=== PATIENT | male | born 1935 | race Caucasian/White ===

== ENCOUNTER 2018-01-14 14:08 | Emergency (ER) | payer MEDICARE, BC ==
--- NOTE | 2018-01-14 14:52 | ED ---
General Adult HPI - General Chief complaint: Extremity Injury, Lower Stated complaint: poss blood clot left leg Time Seen by Provider: 01/14/18 14:10 Source: patient, family, RN notes reviewed Mode of arrival: wheelchair Limitations: physical limitation - History of Present Illness Initial comments: This is an 82-year-old male presents emergency Department with a weeklong history of left leg swelling. Patient has no complaints of pain like patient has no complaints of difficulty breathing or shortness of breath. Patient has no complaints of chest pain. Patient noted that leg becoming swollen about one week ago and he became discolored the dark red hue to it. Patient went to another emergency department and they did not do an ultrasound. Today the patient's physician recommended he come to the emergency department again and be reevaluated especially for clots. Patient has not had any recent fevers or chills patient has no complaints currently other than his leg is larger than normal. Patient also has a petechial rash on the inner left thigh - Related Data Home Medications Medication Instructions Recorded Confirmed Aspirin EC [Ecotrin Low Dose] 81 mg PO DAILY 12/23/13 01/14/18 Fish Oil/Dha/Epa [Fish Oil 1,200 1,200 mg PO DAILY 12/23/13 01/14/18 mg Fish Oil] Hydrochlorothiazide [Hydrodiuril] 12.5 mg PO DAILY 12/23/13 01/14/18 Nisoldipine [Sular] 17 mg PO QAM 12/23/13 01/14/18 Tamsulosin [Flomax] 0.4 mg PO BID 12/23/13 01/14/18 Cephalexin [Keflex] 500 mg PO QID 01/14/18 01/14/18 Donepezil [Aricept] 10 mg PO HS 01/14/18 01/14/18 Meclizine [Antivert] 25 mg PO DAILY 01/14/18 01/14/18 Memantine [Namenda] 10 mg PO BID 01/14/18 01/14/18 Mirtazapine [Remeron] 30 mg PO HS 01/14/18 01/14/18 Multivitamins, Thera [Multivitamin 1 tab PO DAILY 01/14/18 01/14/18 (formulary)] Naproxen 500 mg PO DAILY 01/14/18 01/14/18 Saw [place] 160 mg PO DAILY 01/14/18 01/14/18 Sulfamethox-Tmp 800-160Mg [Bactrim 1 tab PO Q12HR 01/14/18 01/14/18 DS 800-160 mg] Ubidecarenone [Co Q-10] 100 mg PO DAILY 01/14/18 01/14/18 Vit C/E/Zn/Coppr/Lutein/Zeaxan 2 cap PO DAILY 01/14/18 01/14/18 [Preservision Areds 2 Softgel] Allergies Allergy/AdvReac Type Severity Reaction Status Date / Time No Known Allergies Allergy Verified 01/14/18 14:51 Review of Systems ROS Statement: Those systems with pertinent positive or pertinent negative responses have been documented in the HPI. ROS Other: All systems not noted in ROS Statement are negative. Past Medical History Past Medical History: Hypertension, Prostate Disorder Additional Past Medical History / Comment(s): STM LOSS,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,HX ATRIAL FLUTTER History of Any Multi-Drug Resistant Organisms: None Reported Past Surgical History: Appendectomy Additional Past Surgical History / Comment(s): BENIGN TUMOR REMOVED RT BREAST Past Anesthesia/Blood Transfusion Reactions: No Reported Reaction Past Psychological History: No Psychological Hx Reported Smoking Status: Never smoker Past Alcohol Use History: Occasional Past Drug Use History: None Reported General Exam - General Exam Comments Initial Comments: GENERAL: Patient is well-developed and well-nourished. Patient is nontoxic and well- hydrated and is in no acute distress. ENT: Neck is soft and supple. No significant lymphadenopathy is noted. Oropharynx is clear. Moist mucous membranes. Neck has full range of motion without eliciting any pain. EYES: The sclera were anicteric and conjunctiva were pink and moist. Extraocular movements were intact and pupils were equal round and reactive to light. Eyelids were unremarkable. PULMONARY: Unlabored respirations. Good breath sounds bilaterally. No audible rales rhonchi or wheezing was noted. CARDIOVASCULAR: There is a regular rate and rhythm without any murmurs gallops or rubs. ABDOMEN: Soft and nontender with normal bowel sounds. No palpable organomegaly was noted. There is no palpable pulsatile mass. SKIN: Skin is clear with no lesions or rashes and otherwise unremarkable. NEUROLOGIC: Patient is alert and oriented x3. Cranial nerves II through XII are grossly intact. Motor and sensory are also intact. Normal speech, volume and content. Symmetrical smile. MUSCULOSKELETAL: Left leg is significantly more edematous than the right there is a sharply demarcated area of dark erythema that is nonblanching. Patient also has a erythematous rash on the inner left thigh that is also nonblanching and looks consistent with petechiae. LYMPHATICS: No significant lymphadenopathy is noted PSYCHIATRIC: Normal psychiatric evaluation. Limitations: physical limitation Course Vital Signs 01/14/18 14:24 Temperature 98.2 F Pulse Rate 65 Respiratory 20 Rate Blood Pressure 132/73 O2 Sat by Pulse 97 Oximetry Medical Decision Making - Medical Decision Making Ultrasound showed no acute DVT. Patient was 30 on Bactrim and Keflex for cellulitis of the leg. And the states they will continue the antibiotics - Lab Data Result diagrams: 01/14/18 15:05 01/14/18 15:05 Lab Results 01/14/18 01/14/18 01/14/18 Range/Units 15:05 15:05 15:05 WBC 7.0 (3.8-10.6) k/uL RBC 4.07 L (4.30-5.90) m/uL Hgb 12.6 L (13.0-17.5) gm/dL Hct 38.6 L (39.0-53.0) % MCV 94.9 (80.0-100.0) fL MCH 31.0 (25.0-35.0) pg MCHC 32.7 (31.0-37.0) g/dL RDW 13.5 (11.5-15.5) % Plt Count 199 (150-450) k/uL Neutrophils % 76 % Lymphocytes % 13 % Monocytes % 7 % Eosinophils % 3 % Basophils % 0 % Neutrophils # 5.3 (1.3-7.7) k/uL Lymphocytes # 0.9 L (1.0-4.8) k/uL Monocytes # 0.5 (0-1.0) k/uL Eosinophils # 0.2 (0-0.7) k/uL Basophils # 0.0 (0-0.2) k/uL PT 10.9 (9.0-12.0) sec INR 1.1 (<1.2) APTT 23.6 (22.0-30.0) sec Sodium 141 (137-145) mmol/L Potassium 4.1 (3.5-5.1) mmol/L Chloride 109 H (98-107) mmol/L Carbon Dioxide 22 (22-30) mmol/L Anion Gap 10 mmol/L BUN 29 H (9-20) mg/dL Creatinine 1.20 (0.66-1.25) mg/dL Est GFR (CKD-EPI)AfAm 64 (>60 ml/min/1.73 sqM) Est GFR (CKD-EPI)NonAf 56 (>60 ml/min/1.73 sqM) Glucose 88 (74-99) mg/dL Calcium 9.4 (8.4-10.2) mg/dL Total Bilirubin 0.5 (0.2-1.3) mg/dL AST 26 (17-59) U/L ALT 34 (21-72) U/L Alkaline Phosphatase 61 (38-126) U/L Total Protein 6.6 (6.3-8.2) g/dL Albumin 3.5 (3.5-5.0) g/dL Disposition Clinical Impression: Peripheral edema Disposition: HOME SELF-CARE Instructions: Leg Edema (ED) Is patient prescribed a controlled substance at d/c from ED?: No Referrals: Cullen Morel MD [Primary Care Provider] - 1-2 days Time of Disposition: 16:55
[2018-01-14 15:23] LABS: Basophils % (A) 0 %; Eosinophils # (A) 0.2 k/uL (0-0.7); Eosinophils % (A) 3 %; HCT 38.6 % (39.0-53.0); HGB 12.6 gm/dL (13.0-17.5); Lymphocytes # (A) 0.9 k/uL (1.0-4.8); Lymphocytes % (A) 13 %; MCHC 32.7 g/dL (31.0-37.0); MCV 94.9 fL (80.0-100.0); Mean Platelet Volume 8.1; Monocytes # (A) 0.5 k/uL (0-1.0); Monocytes % (A) 7 %; Neutrophils # (A) 5.3 k/uL (1.3-7.7); Neutrophils % (A) 76 %; Platelet Count 199 k/uL (150-450); RBC 4.07 m/uL (4.30-5.90); RDW 13.5 % (11.5-15.5)
[2018-01-14 15:26] LABS: Albumin 3.5 g/dL (3.5-5.0); Calcium 9.4 mg/dL (8.4-10.2); Potassium 4.1 mmol/L (3.5-5.1); Total Bilirubin 0.5 mg/dL (0.2-1.3); Total Protein 6.6 g/dL (6.3-8.2)
[2018-01-14 15:27] LABS: INR 1.1 (<1.2); Partial Thromboplastin Time 23.6 sec (22.0-30.0); Prothrombin Time 10.9 sec (9.0-12.0)
--- NOTE | 2018-01-14 15:58 | US ---
EXAMINATION TYPE: US venous doppler duplex LE LT DATE OF EXAM: 01/14/2018 3:45 PM COMPARISON: NONE CLINICAL HISTORY: Pain. cellulitis. Pain/redness/swelling left lower leg SIDE PERFORMED: Left TECHNIQUE: The lower extremity deep venous system is examined utilizing real time linear array sonog aminah with graded compression, doppler sonography and color-flow sonography. VESSELS IMAGED: External Iliac Vein (EIV) Common Femoral Vein Deep Femoral Vein Greater Saphenous Vein * Femoral Vein Popliteal Vein Small Saphenous Vein * Proximal Calf Veins (* superficial vessels) Left Leg: Negative for DVT lymph node noted at level of left CFV = 3.0 x 1.7 x 0.8 cm IMPRESSION: 1. Ultrasound left lower extremity negative for deep venous thrombosis.
[2018-01-14 17:30] VITALS: BP 135/70; PULSE 72; RESP 16; TEMP 98.3
== END 2018-01-14 17:25 | disposition home or self-care (01) ==
LOC: EC 14:08
DX: R60.0 Localized edema (principal); L03.119 Cellulitis of unspecified part of limb; R21 Rash and other nonspecific skin eruption; I10 Essential (primary) hypertension; N40.0 Benign prostatic hyperplasia without lower urinary tract symptoms; Z79.1 Long term (current) use of non-steroidal anti-inflammatories (NSAID); Z79.82 Long term (current) use of aspirin; Z79.899 Other long term (current) drug therapy
CPT/HCPCS: 36415; 80053; 85025; 85610; 85730; 99284

== ENCOUNTER 2018-05-28 08:49 | Day surgery (SDC) | payer MEDICARE, BC ==
[2018-05-27 11:21] VITALS: BMI 34.4
[~2018-05-28 08:49] MED LIST: SODIUM CHLORIDE 0.9% 1,000 ML IV SCH; ceFAZolin 1,000 MG in SODIUM CHLORIDE 0.9% IRRIGATIO 250 ML IRRIGATION ONE; ceFAZolin IN SWFI 2 GM/20 ML SYRINGE IVP ONE
[2018-05-28] MEDS ORDERED: IOPAMIDOL-250 50ML BTL IV ONE (10:40)
[2018-05-28] MEDS ORDERED: MIDAZOLAM 2 MG/2 ML VIAL IVP ONE (11:00)
[2018-05-28] MEDS ORDERED: LIDOCAINE 1% INJ 10MG/ML (20 ML MDV) SQ ONE ×2 (11:03→11:07)
[2018-05-28] MEDS ORDERED: fentaNYL (PF) 50 MCG/ML 2 ML AMP IV ONE (11:09)
[2018-05-28] MEDS ORDERED: ACETAMINOPHEN TAB 325 MG TAB PO PRN (12:12)
[2018-05-28] MEDS ORDERED: SODIUM CHLORIDE 0.9% 1,000 ML IV SCH (12:15)
--- NOTE | 2018-05-28 13:05 | CE ---
CARDIAC ELECTROPHYSIOLOGY REPORT DATE OF SERVICE: 05/28/2018. PROCEDURE: Single-chamber permanent pacemaker from left infraclavicular approach. PERFORMED BY: Dr. Gabriel Ashraf. Moderate conscious sedation time was 61 minutes. The patient was administered Versed and fentanyl and his oxygen saturation, hemodynamics and EKG were monitored closely. CLINICAL INFORMATION: Mr. Kvng Taveras is a 82-year-old gentleman with history of hypertension, hyperlipidemia, chronic atrial fibrillation with several episodes of significant pauses of more than 4.5 seconds and associated with dizziness, lightheadedness and near syncope. He was advised a permanent pacemaker and brought in for the procedure electively. Rationale, risks, benefits, options were explained to the patient and his . PROCEDURE NOTE: Under local anesthesia and strict aseptic precautions from the left infraclavicular approach under fluoroscopic guidance, an axillary vein puncture was achieved with using a micropuncture needle technique. Subsequently a guidewire was positioned in the right atrium. I then made an incision about inch and a half medial and parallel to the left deltopectoral groove. Dissection was carried out up till the fascia. A pocket was made using blunt dissection and cautery. The pocket was irrigated with antibiotic solution and the antibiotic sponge was also kept in the pocket. A 6-Ugand[place] introducer was placed in the axillary vein under fluoroscopic guidance. A single ventricular lead was positioned under fluoroscopic guidance in the interventricular septum. Good thresholds and sensitivities were obtained. The sheath was taken out. The lead was secured to the underlying muscle with a 0 silk. Subsequently, the thresholds were rechecked again. DUCKWORTH and DARIA projection views as well as diaphragmatic pacing were performed. The pulse generator was then corrected to the lead. The thresholds and sensitivities were again checked. There was some decrease in the R-waves, but subsequently they came back up to 5.6. The pulse generator was also secured to the underlying muscle in the plane of the incision. The pocket was closed in 2 layers. Excellent hemostasis was secured. Patient tolerated the procedure well without complications. Results were discussed with the patient and family members. He received Kefzol antibiotic during the incision and this will be given for the next 4 doses as well. Procedure was performed uneventfully. PACEMAKER DETAILS: Pulse generator piano accompanist is [employer], model Assurity MRI 1272, serial #[id number]. The ventricular lead piano accompanist is [employer], it is a Tendril STS [id number]. The serial number is a [id number]. The location of the lead was in the interventricular septum. The R-waves on final recordings were 5.6 mV. The threshold was 0.5 V at 0.4 milliseconds. The lead impedance was 740 ohms. The pacemaker was set at a low rate of 50 and a high rate of 110. The patient will have a chest x-ray today and another chest x-ray 2 views tomorrow and a device check as well prior to discharge. MMODL / IJN: [id number] /
--- NOTE | 2018-05-28 13:41 | XR ---
EXAMINATION TYPE: XR chest 1V portable DATE OF EXAM: 05/28/2018 Comparison: None Clinical History: 82-year-old male Lead placement check Findings: Heart mildly enlarged. Left anterior chest wall pacemaker generator with single right ventricular laine d. No pneumothorax. There is a moderate left pleural effusion with adjacent left basilar opacity. Impression: 1. Mild cardiomegaly. Moderate left pleural effusion with adjacent atelectasis and/or consolidation. Possible sequela of mild CHF. 2. Left-sided pacemaker generator with right ventricular lead.
[2018-05-28] MEDS: ceFAZolin IN SWFI 2 GM/20 ML SYRINGE IVP SCH (18:26)
[2018-05-28] MEDS ORDERED: DONEPEZIL 10 MG TAB PO SCH (21:00)
[2018-05-28] MEDS ORDERED: MIRTAZAPINE 15 MG TAB PO SCH (21:00)
[2018-05-28] MEDS: TAMSULOSIN 0.4 MG CAP.ER.24H PO SCH (21:35)
[2018-05-28] MEDS: MEMANTINE 10 MG TAB PO SCH (21:35)
[2018-05-29] MEDS: ceFAZolin IN SWFI 2 GM/20 ML SYRINGE IVP SCH ×3 (00:14→12:45)
[2018-05-29] MEDS ORDERED: LEVOTHYROXINE 50 MCG TAB PO SCH (06:30)
--- NOTE | 2018-05-29 07:55 | XR ---
EXAMINATION TYPE: XR chest 2V DATE OF EXAM: 05/29/2018 COMPARISON: Chest x-ray from yesterday. HISTORY: Lead placement check for arrhythmia. TECHNIQUE: Frontal and lateral views of the chest are obtained. FINDINGS: There is redemonstration of cardiomegaly with single lead pacemaker, lead projects into ri ght ventricle on 2 views obtained. There is chronic parenchymal change with left basilar opacity cons istent with small to moderate-sized left pleural effusion, there is small to tiny right pleural effus ion. There is associated left basilar atelectasis and/or infiltrate. Mild to moderate central vascula r congestion is felt present. Osseous structures are somewhat demineralized. Degenerative change bila teral glenohumeral joints is noted. IMPRESSION: 1. Single lead pacemaker terminating in right ventricle confirmed. 2. Cardiomegaly with mild to moderate central vascular congestion felt slightly more prominent from p rior, correlate for CHF exacerbation or fluid overload state. There is persistent small to moderate-s ized left pleural effusion and small to tiny right pleural effusion with associated left basilar atel ectasis and/or infiltrate.
[2018-05-29] MEDS: TAMSULOSIN 0.4 MG CAP.ER.24H PO SCH (07:59)
[2018-05-29] MEDS ORDERED: APIXABAN 2.5 MG TABLET PO SCH (08:00)
[2018-05-29] MEDS: MEMANTINE 10 MG TAB PO SCH (08:00)
[2018-05-29] MEDS ORDERED: FUROSEMIDE 10 MG/ML 4 ML VIAL IV STA (08:33)
[2018-05-29] MEDS ORDERED: FUROSEMIDE 20 MG TAB PO SCH (09:00)
[2018-05-29] MEDS ORDERED: amLODIPine 5 MG TAB PO SCH (09:00)
[2018-05-29] MEDS ORDERED: CALCIUM POLYCARBOPHIL 625 MG TAB PO SCH (09:00)
[2018-05-29] MEDS ORDERED: POTASSIUM CHLORIDE ER 20 MEQ TAB.ER PO SCH (09:00)
[2018-05-29 09:03] VITALS: RESP 18
[2018-05-29] MEDS ORDERED: VIT A,C & E-LUTEIN-MINERALS 1 EACH TAB PO SCH (12:00)
[2018-05-29] MEDS ORDERED: MULTIVITAMINS, THERA 1 EACH TAB PO SCH (12:00)
[2018-05-29 12:13] VITALS: BP 130/76; PULSE 58; TEMP 97.8
--- NOTE | 2018-05-29 14:57 | DS ---
DISCHARGE SUMMARY DATE OF SERVICE: 05/28/2018 DATE OF DISCHARGE: 05/29/2018. DIAGNOSES: 1. Sick sinus syndrome. 2. Chronic atrial fibrillation. 3. Diastolic heart failure. 4. Chronic pleural effusion. CLINICAL INFORMATION: Mr. Kvng Taveras is an 82-year-old gentleman with sick sinus syndrome, symptomatic bradycardia with pauses of more than 3.5 seconds, who was advised to have a permanent pacemaker because of his symptoms and bradycardia. Risks, benefits, options and rationale were explained. Patient was brought in for the procedure electively. On 05/28/2018 he underwent a single-chamber permanent pacemaker that was placed in the left infraclavicular approach. This was a [employer] pacemaker, single-chamber, with a screw-in active lead. Procedure was performed uneventfully. Post-procedure course was uneventful. Chest x-ray both yesterday and today did not reveal any pacemaker-related complications. He has a pleural effusion that seems to persist. The site is clean and dry this morning. His vital signs are stable. Heart rate is in the 70s. S1, S2 heard normally. Short systolic murmur at the base is audible. Lungs reveal diminished air entry at both bases. Abdomen is soft, nontender. Lower extremities reveal diminished pulses. Central nervous system is normal. The pacemaker site is clean and dry. The dressing has what seems to be old blood, but there is no fresh oozing. It looks clean and dry. The patient's pacemaker has been checked, and sensitivities and thresholds are excellent. The chest x-ray is unremarkable for any pacemaker-related issues. He will be discharged this afternoon after he has received 4 doses of his antibiotics. I will see him in the office on June 05 at 2:30 p.m. Advised to not raise his arm above the head and to use the sling for at least one week. I will see him in the office in one week. He will call me sooner if he has a question, concern or problem. All discharge instructions were given. MMODL / IJN: [id number] /
--- NOTE | 2018-06-02 09:02 | CDI ---
ChronicDate: 06/02/18 CDS/Local Bulk Driver Name: Cristin Garcia Phone: If any questions, call Estella Henley Process Architect at [phone] Patient Name: Kvng Taveras Admit Date: 05/28/18 Discharge Date: 05/29/18 ATTENTION: The [facility] Coding Staff appreciate your assistance in clarifying documentation. Please respond to the clarification below the line at the bottom and electronically sign. The [facility] Coding staff will review the response and follow-up if needed. Please note: Queries are made part of the Legal Health Record. If you have any questions, please contact the Process Architect. Dear Dr. Ashraf, Please provide clarification as to the type of atrial fibrillation the patient is diagnosed with. The H&P under Problem List and Impression and Plan it is stated as Persistent Atrial Fibrillation. All through the procedure note it is described as Chronic Atrial Fibrillation. Please clarify. Thank you for your kind consideration Chronic Afib MTDD
== END 2018-05-29 14:49 | disposition home or self-care (01) ==
LOC: CATHEP 08:49 → 1SOBS 12:04 → CATHEP 05-29 14:49
PROVIDERS: ATTEND Internal Medicine Interventional Cardiology
DX: I49.5 Sick sinus syndrome (principal); I48.2 Chronic atrial fibrillation; I11.0 Hypertensive heart disease with heart failure; I50.30 Unspecified diastolic (congestive) heart failure; F03.91 Unspecified dementia, unspecified severity, with behavioral disturbance; J90 Pleural effusion, not elsewhere classified; Z79.01 Long term (current) use of anticoagulants; Z79.1 Long term (current) use of non-steroidal anti-inflammatories (NSAID); Z79.890 Hormone replacement therapy; Z79.899 Other long term (current) drug therapy
CPT/HCPCS: 33207; 71045; 71046; C1898; C1786; J2250; J1940; J0690 ×3; J2001; J3010; Q9966; 33206

== ENCOUNTER 2018-08-24 21:10 | Emergency (ER) | payer MEDICARE, BC ==
--- NOTE | 2018-08-24 21:51 | ED ---
General Adult HPI - General Chief complaint: Extremity Problem,Nontraumatic Stated complaint: Lft Arm Numbness, Pacemaker dependent Time Seen by Provider: 08/24/18 21:25 Source: patient, family Mode of arrival: wheelchair Limitations: no limitations, altered mental status - History of Present Illness Initial comments: Dictation was produced using [employer] dictation software. please excuse any grammatical, word or spelling errors. Chief Complaint: 82-year-old male with past medical history of dementia, A. fib, hypertension presents with left elbow pain. History of Present Illness: Patient is a 2-year-old male with history of dementia. He presents today with left elbow pain. Patient is accompanied by his or set patient is complaining of arm pain since yesterday. Patient is a poor historian. denies that he has fallen. Patient is confused however reports that he is baseline confused. He does say yes to pain if you point to his left elbow and left humerus. Patient has no other complaints at this time. does not report any other changes from baseline. She does report that he is normally this confused. The ROS documented in this emergency department record has been reviewed and confirmed by me. Those systems with pertinent positive or negative responses have been documented in the HPI. All other systems are other negative and/or noncontributory. PHYSICAL EXAM: General Impression: Alert and oriented x3, not in acute distress HEENT: Normocephalic atraumatic, extra-ocular movements intact, pupils equal and reactive to light bilaterally, mucous membranes moist. Cardiovascular: Heart regular rate and rhythm, S1&S2 audible, no murmurs, rubs or gallops Chest: Lungs clear to auscultation bilaterally, no rhonchi, no wheeze, no rales Abdomen: Bowel sounds present, abdomen soft, non-tender, non-distended, no organomegaly Musculoskeletal: Pulses present and equal in all extremities, no peripheral edema, tenderness with extension of the left elbow Motor: no focal deficits noted Neurological: CN II-XII grossly intact, no focal motor or sensory deficits noted Skin: Intact with no visualized rashes Psych: Normal affect and mood ED course: 82-year-old male presents with left upper extremity pain. Vital signs upon arrival are within acceptable limits. Patient is well-appearing. History is limited secondary to patient's mental status of normal dementia. No external signs of trauma on physical examination. He does have some pain with manipulation at the left elbow.Labs obtained CBC and metabolic panel is unremarkable. X-rays of the chest elbow and shoulder are nonacute. There is a. Be some degenerative changes. More history was obtained from . She states that she was on his left arm whenever she tries to help him up. Patient's clinical presentation likely secondary to left elbow strain. Patient had lidocaine patch placed on his left elbow. Passive follow up PCP. Return parameters discussed. EKG interpretation: Ventricular rate 64, paced rhythm, QRS 72, QTC 392. No HI prolongation, no QTC prolongation, no ST or T-wave changes noted. No old EKG for comparison. - Related Data Home Medications Medication Instructions Recorded Confirmed Aspirin EC [Ecotrin Low Dose] 81 mg PO DAILY 12/23/13 08/24/18 Tamsulosin [Flomax] 0.4 mg PO BID 12/23/13 08/24/18 Mirtazapine [Remeron] 30 mg PO HS 01/14/18 08/24/18 Multivitamins, Thera [Multivitamin 1 tab PO DAILY 01/14/18 08/24/18 (formulary)] Vit C/E/Zn/Coppr/Lutein/Zeaxan 1 cap PO DAILY 01/14/18 08/24/18 [Preservision Areds 2 Softgel] Apixaban [Eliquis] 2.5 mg PO BID 04/30/18 08/24/18 Furosemide [Lasix] 20 mg PO DAILY 04/30/18 08/24/18 Levothyroxine Sodium [Synthroid] 50 mcg PO MOTUTHFRSA 04/30/18 08/24/18 Potassium Chloride [Klor-Con 20] 20 meq PO DAILY 04/30/18 08/24/18 Carvedilol [Coreg] 6.25 mg PO BID 08/24/18 08/24/18 Levothyroxine Sodium [Synthroid] 75 mcg PO SUWE 08/24/18 08/24/18 Meclizine [Antivert] 12.5 mg PO BID 08/24/18 08/24/18 Metolazone [Zaroxolyn] 2.5 mg PO MOWEFR 08/24/18 08/24/18 Allergies Allergy/AdvReac Type Severity Reaction Status Date / Time No Known Allergies Allergy Verified 08/24/18 22:01 Review of Systems ROS Statement: Those systems with pertinent positive or pertinent negative responses have been documented in the HPI. ROS Other: All systems not noted in ROS Statement are negative. 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, halfway memor y loss History of Any Multi-Drug Resistant Organisms: None Reported Past Surgical History: Appendectomy, Breast Surgery, Joint Replacement, Pacemaker, Prostate Surgery Additional Past Surgical History / Comment(s): BENIGN TUMOR REMOVED RT BREAST, rt knee replacement, cardioversion, DEJAN CATARACTS, thorascentesis Past Anesthesia/Blood Transfusion Reactions: No Reported Reaction Past Psychological History: Depression Smoking Status: Never smoker Past Alcohol Use History: Rare Past Drug Use History: None Reported - Past Family History Mother Family Medical History: No Reported History General Exam Limitations: no limitations, altered mental status Course Vital Signs 08/24/18 08/24/18 21:12 21:54 Temperature 99.1 F Pulse Rate 50 L 61 Respiratory 18 20 Rate Blood Pressure 130/69 124/74 O2 Sat by Pulse 95 97 Oximetry Medical Decision Making - Lab Data Result diagrams: 08/24/18 21:46 08/24/18 21:46 Lab Results 08/24/18 08/24/18 Range/Units 21:46 21:46 WBC 6.8 (3.8-10.6) k/uL RBC 3.90 L (4.30-5.90) m/uL Hgb 11.9 L (13.0-17.5) gm/dL Hct 36.3 L (39.0-53.0) % MCV 93.0 (80.0-100.0) fL MCH 30.4 (25.0-35.0) pg MCHC 32.7 (31.0-37.0) g/dL RDW 15.0 (11.5-15.5) % Plt Count 170 (150-450) k/uL Neutrophils % 73 % Lymphocytes % 15 % Monocytes % 8 % Eosinophils % 1 % Basophils % 1 % Neutrophils # 5.0 (1.3-7.7) k/uL Lymphocytes # 1.0 (1.0-4.8) k/uL Monocytes # 0.6 (0-1.0) k/uL Eosinophils # 0.1 (0-0.7) k/uL Basophils # 0.0 (0-0.2) k/uL Sodium 139 (137-145) mmol/L Potassium 4.2 (3.5-5.1) mmol/L Chloride 104 (98-107) mmol/L Carbon Dioxide 26 (22-30) mmol/L Anion Gap 9 mmol/L BUN 23 H (9-20) mg/dL Creatinine 1.33 H (0.66-1.25) mg/dL Est GFR (CKD-EPI)AfAm 57 (>60 ml/min/1.73 sqM) Est GFR (CKD-EPI)NonAf 49 (>60 ml/min/1.73 sqM) Glucose 125 H (74-99) mg/dL Calcium 9.9 (8.4-10.2) mg/dL Disposition Clinical Impression: Elbow strain Disposition: HOME SELF-CARE Condition: Good Instructions (If sedation given, give patient instructions): Elbow Sprain (ED) Is patient prescribed a controlled substance at d/c from ED?: No Referrals: Cullen Morel MD [Primary Care Provider] - 1-2 days Time of Disposition: 22:34
[2018-08-24 21:55] VITALS: RESP 20
[2018-08-24 22:00] LABS: Basophils % (A) 1 %; Eosinophils # (A) 0.1 k/uL (0-0.7); Eosinophils % (A) 1 %; HCT 36.3 % (39.0-53.0); HGB 11.9 gm/dL (13.0-17.5); Lymphocytes % (A) 15 %; MCH 30.4 pg (25.0-35.0); MCHC 32.7 g/dL (31.0-37.0); Mean Platelet Volume 8.9; Monocytes # (A) 0.6 k/uL (0-1.0); Monocytes % (A) 8 %; Neutrophils % (A) 73 %; Platelet Count 170 k/uL (150-450); WBC 6.8 k/uL (3.8-10.6)
--- NOTE | 2018-08-24 22:06 | XR ---
EXAMINATION TYPE: XR chest 2V DATE OF EXAM: 08/24/2018 COMPARISON: Chest x-ray May 29, 2018 HISTORY: Shortness of breath and left arm pain. TECHNIQUE: Frontal and lateral views of the chest are obtained. FINDINGS: There is persistent cardiomegaly with single lead pacemaker and atherosclerotic and ectati c thoracic aorta. There is persistent moderate size left pleural effusion and small to tiny sized rig ht pleural effusion. There is central vascular congestion redemonstrated. There is no new suspicious focal airspace opacity or pneumothorax. Multilevel spurring in thoracic spine is redemonstrated. Ove rlying EKG leads are redemonstrated. IMPRESSION: Persistent cardiomegaly with moderate sized left pleural effusion and small tiny sized r ight pleural effusion with mild to moderate central vascular congestion all redemonstrated. No signif icant change from prior x-ray.
[2018-08-24 22:08] LABS: Calcium 9.9 mg/dL (8.4-10.2); Potassium 4.2 mmol/L (3.5-5.1)
--- NOTE | 2018-08-24 22:11 | XR ---
EXAMINATION TYPE: XR shoulder complete LT DATE OF EXAM: 08/24/2018 CLINICAL HISTORY: Left shoulder pain. TECHNIQUE: Three views of the left shoulder are obtained. COMPARISON: None. FINDINGS: There is no acute fracture/dislocation evident in the left shoulder. Demineralization is p resent. There is moderate to severe narrowing with mild spurring and moderate to severe superior caps ular hypertrophy and acromioclavicular joint. Glenohumeral joint shows subchondral cystic changes sup erolateral humeral head. There is partial visualization of left-sided single lead pacemaker. Distal a cromion morphology is unremarkable. IMPRESSION: As above.
--- NOTE | 2018-08-24 22:25 | XR ---
EXAM: XR Left Elbow Complete, 3 or More Views CLINICAL HISTORY: ITS.REASON XR Reason: Pain TECHNIQUE: Frontal, lateral and oblique views of the left elbow. COMPARISON: None FINDINGS: Bones/joints: No acute fracture or dislocation identified. Osteopenia. Degenerative changes of the left elbow. Enthesophytes off the olecranon. Question left elbow joint effusion versus artifact. Soft tissues: Vascular calcifications. IMPRESSION: No displaced fracture or dislocation identified.
[2018-08-24] MEDS ORDERED: LIDOCAINE 5% PATCH TOPICAL STA (22:31)
[2018-08-24 22:48] VITALS: BP 128/78; PULSE 81; TEMP 98.8
== END 2018-08-24 22:48 | disposition home or self-care (01) ==
LOC: EC 21:10
DX: S56.912A Strain of unspecified muscles, fascia and tendons at forearm level, left arm, initial encounter (principal); M47.814 Spondylosis without myelopathy or radiculopathy, thoracic region; I48.91 Unspecified atrial fibrillation; I11.0 Hypertensive heart disease with heart failure; I50.9 Heart failure, unspecified; N40.0 Benign prostatic hyperplasia without lower urinary tract symptoms; F03.90 Unspecified dementia, unspecified severity, without behavioral disturbance, psychotic disturbance, mood disturbance, and anxiety; Z79.01 Long term (current) use of anticoagulants; Z79.82 Long term (current) use of aspirin; Z79.890 Hormone replacement therapy; Z79.899 Other long term (current) drug therapy; Z95.0 Presence of cardiac pacemaker; Z96.651 Presence of right artificial knee joint; X58.XXXA Exposure to other specified factors, initial encounter
CPT/HCPCS: 36415; 71046; 80048; 85025; 93005; 99284

== ENCOUNTER 2018-11-09 21:08 | Inpatient (IN) | payer MEDICARE, BC ==
[2018-11-09] MEDS ORDERED: IBUPROFEN 600 MG TAB PO STA (21:31)
[2018-11-09] MEDS ORDERED: ACETAMINOPHEN TAB 500 MG TAB PO STA (21:31)
--- NOTE | 2018-11-09 21:36 | ED ---
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 Patient is brought to the ER today via EMS for evaluation of fever and altered mental status. reports that today the patient was seen by his home health care nurse and was noted to be doing well his oral temperature at that time was 97.5. However this evening he seems to have developed a fever, he is warm to the touch and not as interactive as usual. reports that he has had a cough lately but typically has a chronic cough she is not sees "reviewed. She also notes that he usually urinates nearly every hour and hasn't been urinating for approximately 4 hours prior to arrival. She is concerning maybe having difficulty urinating or is dehydrated. reports that typically very can recognize her and will respond to her though his answers are not always appropriate. However it now he seems to be staring off more and less verbal than usual. - Related Data Home Medications Medication Instructions Recorded Confirmed Aspirin EC [Ecotrin Low Dose] 81 mg PO DAILY 12/23/13 08/24/18 Tamsulosin [Flomax] 0.4 mg PO BID 12/23/13 08/24/18 Mirtazapine [Remeron] 30 mg PO HS 01/14/18 08/24/18 Multivitamins, Thera [Multivitamin 1 tab PO DAILY 01/14/18 08/24/18 (formulary)] Vit C/E/Zn/Coppr/Lutein/Zeaxan 1 cap PO DAILY 01/14/18 08/24/18 [Preservision Areds 2 Softgel] Apixaban [Eliquis] 2.5 mg PO BID 04/30/18 08/24/18 Furosemide [Lasix] 20 mg PO DAILY 04/30/18 08/24/18 Levothyroxine Sodium [Synthroid] 50 mcg PO MOTUTHFRSA 04/30/18 08/24/18 Potassium Chloride [Klor-Con 20] 20 meq PO DAILY 04/30/18 08/24/18 Carvedilol [Coreg] 6.25 mg PO BID 08/24/18 08/24/18 Levothyroxine Sodium [Synthroid] 75 mcg PO SUWE 08/24/18 08/24/18 Meclizine [Antivert] 12.5 mg PO BID 08/24/18 08/24/18 Metolazone [Zaroxolyn] 2.5 mg PO MOWEFR 08/24/18 08/24/18 Allergies Allergy/AdvReac Type Severity Reaction Status Date / Time No Known Allergies Allergy Verified 08/24/18 22:01 Review of Systems ROS Statement: Those systems with pertinent positive or pertinent negative responses have been documented in the HPI. ROS Other: All systems not noted in ROS Statement are negative. 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 History of Any Multi-Drug Resistant Organisms: None Reported Past Surgical History: Appendectomy, Breast Surgery, Joint Replacement, Pacemaker, Prostate Surgery Additional Past Surgical History / Comment(s): BENIGN TUMOR REMOVED RT BREAST, rt knee replacement, cardioversion, DEJAN CATARACTS, thorascentesis Past Anesthesia/Blood Transfusion Reactions: No Reported Reaction Past Psychological History: Depression Smoking Status: Never smoker Past Alcohol Use History: Rare Past Drug Use History: None Reported - Past Family History Mother Family Medical History: No Reported History General Exam - General Exam Comments Initial Comments: Physical Exam GENERAL: Chronically ill appearing, elderly HENT: Normocephalic, Atraumatic. EYES: PERRL, EOMI Eyes track or people in room PULMONARY: Decreased breath sounds at bases CARDIOVASCULAR: RRR ABDOMEN: Soft and nontender with normal bowel sounds. SKIN: Skin is clear with no lesions or rashes and otherwise unremarkable. : Bladder scan with 300cc Normal external genitalia NEUROLOGIC: Answers yes/no and looks when his name is called Minimally verbal tracks people in the room with his eyes MUSCULOSKELETAL: Diffuse atroph PSYCHIATRIC: Unable to assess due to dementia Course Vital Signs 11/09/18 11/09/18 11/09/18 21:14 22:12 22:46 Temperature 102.6 F H 101.2 F H Pulse Rate 71 77 62 Respiratory 18 18 18 Rate Blood Pressure 101/82 110/71 101/60 O2 Sat by Pulse 94 L 96 97 Oximetry 11/09/18 11/10/18 11/10/18 23:25 00:46 01:35 Temperature 99.1 F 100.1 F H 99.4 F Pulse Rate 60 60 63 Respiratory 18 18 16 Rate Blood Pressure 97/61 98/59 97/64 O2 Sat by Pulse 97 97 Oximetry Medical Decision Making - Medical Decision Making Patient was seen and evaluated, history is obtained from EMS and at bedside Patient is febrile, has not been urinating as much as usual, reports he was an issue usual state of health throughout the afternoon Physical exam is relatively unremarkable patient has advanced dementia Labs without any significant abnormality Patient unable to provide urine sample UA with no signs of infection CXR concerning for pneumonia - given that patient has fever and cough we will treat The patient's advanced age and multiple comorbidities we will plan to admit the patient for likely pneumonia with fever and altered mental status - Lab Data Result diagrams: 11/09/18 21:34 11/09/18 21:34 Lab Results 11/09/18 11/09/18 11/09/18 Range/Units 21:34 21:34 21:34 WBC 11.1 H (3.8-10.6) k/uL RBC 3.93 L (4.30-5.90) m/uL Hgb 11.4 L (13.0-17.5) gm/dL Hct 36.2 L (39.0-53.0) % MCV 92.1 (80.0-100.0) fL MCH 28.9 (25.0-35.0) pg MCHC 31.4 (31.0-37.0) g/dL RDW 15.6 H (11.5-15.5) % Plt Count 172 (150-450) k/uL Neutrophils % 92 % Lymphocytes % 4 % Monocytes % 4 % Eosinophils % 1 % Basophils % 0 % Neutrophils # 10.2 H (1.3-7.7) k/uL Lymphocytes # 0.4 L (1.0-4.8) k/uL Monocytes # 0.4 (0-1.0) k/uL Eosinophils # 0.1 (0-0.7) k/uL Basophils # 0.0 (0-0.2) k/uL PT (9.0-12.0) sec INR (<1.2) APTT (22.0-30.0) sec Sodium 138 (137-145) mmol/L Potassium 4.5 (3.5-5.1) mmol/L Chloride 103 (98-107) mmol/L Carbon Dioxide 23 (22-30) mmol/L Anion Gap 12 mmol/L BUN 26 H (9-20) mg/dL Creatinine 1.40 H (0.66-1.25) mg/dL Est GFR (CKD-EPI)AfAm 54 (>60 ml/min/1.73 sqM) Est GFR (CKD-EPI)NonAf 46 (>60 ml/min/1.73 sqM) Glucose 105 H (74-99) mg/dL Plasma Lactic Acid Dony 1.4 (0.7-2.0) mmol/L Calcium 9.9 (8.4-10.2) mg/dL Total Bilirubin 1.8 H (0.2-1.3) mg/dL AST 20 (17-59) U/L ALT 17 L (21-72) U/L Alkaline Phosphatase 101 (38-126) U/L Total Protein 7.8 (6.3-8.2) g/dL Albumin 4.4 (3.5-5.0) g/dL Urine Color Urine Appearance (Clear) Urine pH (5.0-8.0) Ur Specific [place] (1.001-1.035) Urine Protein (Negative) Urine Glucose (UA) (Negative) Urine Ketones (Negative) Urine Blood (Negative) Urine Nitrite (Negative) Urine Bilirubin (Negative) Urine Urobilinogen (<2.0) mg/dL Ur Leukocyte Esterase (Negative) 11/09/18 11/09/18 Range/Units 21:34 23:50 WBC (3.8-10.6) k/uL RBC (4.30-5.90) m/uL Hgb (13.0-17.5) gm/dL Hct (39.0-53.0) % MCV (80.0-100.0) fL MCH (25.0-35.0) pg MCHC (31.0-37.0) g/dL RDW (11.5-15.5) % Plt Count (150-450) k/uL Neutrophils % % Lymphocytes % % Monocytes % % Eosinophils % % Basophils % % Neutrophils # (1.3-7.7) k/uL Lymphocytes # (1.0-4.8) k/uL Monocytes # (0-1.0) k/uL Eosinophils # (0-0.7) k/uL Basophils # (0-0.2) k/uL PT 12.4 H (9.0-12.0) sec INR 1.2 H (<1.2) APTT 25.2 (22.0-30.0) sec Sodium (137-145) mmol/L Potassium (3.5-5.1) mmol/L Chloride (98-107) mmol/L Carbon Dioxide (22-30) mmol/L Anion Gap mmol/L BUN (9-20) mg/dL Creatinine (0.66-1.25) mg/dL Est GFR (CKD-EPI)AfAm (>60 ml/min/1.73 sqM) Est GFR (CKD-EPI)NonAf (>60 ml/min/1.73 sqM) Glucose (74-99) mg/dL Plasma Lactic Acid Dony (0.7-2.0) mmol/L Calcium (8.4-10.2) mg/dL Total Bilirubin (0.2-1.3) mg/dL AST (17-59) U/L ALT (21-72) U/L Alkaline Phosphatase (38-126) U/L Total Protein (6.3-8.2) g/dL Albumin (3.5-5.0) g/dL Urine Color Yellow Urine Appearance Clear (Clear) Urine pH 5.5 (5.0-8.0) Ur Specific [place] 1.016 (1.001-1.035) Urine Protein Trace H (Negative) Urine Glucose (UA) Negative (Negative) Urine Ketones Negative (Negative) Urine Blood Negative (Negative) Urine Nitrite Negative (Negative) Urine Bilirubin Negative (Negative) Urine Urobilinogen 2.0 (<2.0) mg/dL Ur Leukocyte Esterase Negative (Negative) - EKG Data -: EKG Interpreted by Me EKG Comments: EKG was obtained as part of a septic workup. EKG was obtained at 9:14 PM, rate is 76 rhythm is A. fib with ventricular paced complexes at times. There is a 62 QTc is [address] elevation there is noted to be T-wave inversion and depression V3 been over cervical changes. No evidence of acute infarction. Disposition Clinical Impression: Fever, Pneumonia, Altered mental status, Advanced dementia Disposition: ADMITTED IP TO THIS HOSP
[2018-11-09] MEDS: SODIUM CHLORIDE 0.9% 500 ML 500 ML IV SCH ×2 (22:07→22:48)
[2018-11-09 22:15] LABS: Basophils % (A) 0 %; Eosinophils # (A) 0.1 k/uL (0-0.7); Eosinophils % (A) 1 %; HCT 36.2 % (39.0-53.0); HGB 11.4 gm/dL (13.0-17.5); Lymphocytes # (A) 0.4 k/uL (1.0-4.8); Lymphocytes % (A) 4 %; MCH 28.9 pg (25.0-35.0); MCHC 31.4 g/dL (31.0-37.0); MCV 92.1 fL (80.0-100.0); Mean Platelet Volume 7.9; Monocytes # (A) 0.4 k/uL (0-1.0); Monocytes % (A) 4 %; Neutrophils # (A) 10.2 k/uL (1.3-7.7); Neutrophils % (A) 92 %; Platelet Count 172 k/uL (150-450); RBC 3.93 m/uL (4.30-5.90); RDW 15.6 % (11.5-15.5); WBC 11.1 k/uL (3.8-10.6)
--- NOTE | 2018-11-09 22:23 | XR ---
EXAM: XR Chest, 2 Views CLINICAL HISTORY: ITS.REASON XR Reason: Fever TECHNIQUE: Frontal and lateral views of the chest. COMPARISON: Chest radiograph on 08/24/2018 FINDINGS: Hardware: None. Lungs/pleura: Persistent moderate left pleural effusion with associated atelectasis versus pneumonia. Possible trace right pleural effusion. Right basilar atelectasis. Pulmonary vasculature congestion. Heart/mediastinum: Stable enlargement of the cardiomediastinal silhouette. Left-sided pacemaker. Soft tissues: Unremarkable. Bones: No acute fracture. Degenerative changes of the acromioclavicular joints. Upper abdomen: Normal. IMPRESSION: Persistent moderate left pleural effusion with associated atelectasis versus pneumonia. Possible trace right pleural effusion. Right basilar atelectasis. Pulmonary vasculature congestion.
--- NOTE | 2018-11-09 22:24 | XR ---
EXAM: XR Abdomen, 1 View CLINICAL HISTORY: ITS.REASON XR Reason: abdominal distention TECHNIQUE: Frontal supine view of the abdomen/pelvis. COMPARISON: None FINDINGS: Hardware: None. Abdomen: Nonspecific but nonobstructive bowel gas pattern. No free air. Bones: Degenerative changes of the spine and hips. Osteopenia. Soft tissues: Some phleboliths in the pelvis. Lower chest: Enlargement of the cardiac silhouette. Left-sided pleural effusion. IMPRESSION: Nonspecific but nonobstructive bowel gas pattern.
[2018-11-09 22:25] LABS: Albumin 4.4 g/dL (3.5-5.0); Calcium 9.9 mg/dL (8.4-10.2); Potassium 4.5 mmol/L (3.5-5.1); Total Bilirubin 1.8 mg/dL (0.2-1.3); Total Protein 7.8 g/dL (6.3-8.2)
[2018-11-09 22:32] LABS: INR 1.2 (<1.2); Partial Thromboplastin Time 25.2 sec (22.0-30.0); Prothrombin Time 12.4 sec (9.0-12.0)
[2018-11-10 00:17] LABS: Appearance,Urine Clear (Clear); Bilirubin,Urine Negative (Negative); Blood,Urine Negative (Negative); Color,Urine Yellow; Glucose,Urine (UA) Negative (Negative); Ketones,Urine Negative (Negative); Leukocyte Esterase,Urine Negative (Negative); Nitrite,Urine Negative (Negative); PH, Urine 5.5 (5.0-8.0); Protein,Urine Trace (Negative); Specific Gravity,Urine 1.016 (1.001-1.035)
[2018-11-10] MEDS ORDERED: cefTRIAXone IN SWFI 1,000 MG/10 ML SYRINGE IVP STA (00:21)
[2018-11-10] MEDS ORDERED: AZITHROMYCIN 500 MG in SODIUM CHLORIDE 0.9% 250 ML IVPB STA (00:21)
[2018-11-10] MEDS ORDERED: NALOXONE 0.4 MG/ML 1 ML VIAL IV PRN (00:22)
[2018-11-10] MEDS ORDERED: ACETAMINOPHEN TAB 325 MG TAB PO PRN (00:22)
[2018-11-10] MEDS ORDERED: IBUPROFEN 400 MG TAB PO PRN (00:22)
[2018-11-10 04:19] VITALS: BMI 28.9
[2018-11-10] MEDS ORDERED: CARVEDILOL 6.25 MG TAB PO SCH (07:30)
[2018-11-10] MEDS: ASPIRIN 81 MG PO SCH (08:27)
[2018-11-10] MEDS ORDERED: FUROSEMIDE 20 MG TAB PO SCH (09:00)
[2018-11-10] MEDS: SODIUM CHLORIDE 0.9% 1,000 ML IV SCH ×2 (14:42→20:30)
--- NOTE | 2018-11-10 15:01 | P.HPIM ---
History of Present Illness 82-year-old the a pleasant gentleman came in with compensative fever and delirium unable to provide any much of the history to me Bolle awake and answer some questions. I had an extensive length discussion with the . Patient d oes have infiltrate in the left lower lobe highly suspicious for pneumonia patient was started on Rocephin and azithromycin. Patient appears to have dementia which appears to be moderate to severe although fairly functional dependent on on 9 ADLs and IADLs but family wanted to take him home and see when he is stable. Patient has history of diastolic dysfunction had history of pulmonary edema in the past with the pleural effusions in the past. Patient has sick sinus syndrome does have a pacemaker. Patient is on Eliquis as well as beta lu. 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 History of Any Multi-Drug Resistant Organisms: None Reported Past Surgical History: Appendectomy, Breast Surgery, Joint Replacement, Pacemaker, Prostate Surgery Additional Past Surgical History / Comment(s): BENIGN TUMOR REMOVED RT BREAST, rt knee replacement, cardioversion, DEJAN CATARACTS, thorascentesis Past Anesthesia/Blood Transfusion Reactions: No Reported Reaction Type of Cardiac Device: Permanent Pacemaker Device Placement Date:: unknown Past Psychological History: Depression Smoking Status: Never smoker Past Alcohol Use History: Rare Past Drug Use History: None Reported - Past Family History Mother Family Medical History: No Reported History Medications and Allergies Home Medications Medication Instructions Recorded Confirmed Type Aspirin EC [Ecotrin Low Dose] 81 mg PO DAILY 12/23/13 11/10/18 History Tamsulosin [Flomax] 0.4 mg PO BID 12/23/13 11/10/18 History Mirtazapine [Remeron] 30 mg PO HS 01/14/18 11/10/18 History Multivitamins, Thera [Multivitamin 1 tab PO DAILY 01/14/18 11/10/18 History (formulary)] Vit C/E/Zn/Coppr/Lutein/Zeaxan 2 cap PO DAILY 01/14/18 11/10/18 History [Preservision Areds 2 Softgel] Apixaban [Eliquis] 2.5 mg PO BID 04/30/18 11/10/18 History Furosemide [Lasix] 20 mg PO DAILY 04/30/18 11/10/18 History Levothyroxine Sodium [Synthroid] 50 mcg PO MOWETHFRSA 04/30/18 11/10/18 History Potassium Chloride [Klor-Con 20] 20 meq PO DAILY 04/30/18 11/10/18 History Carvedilol [Coreg] 6.25 mg PO BID 08/24/18 11/10/18 History Levothyroxine Sodium [Synthroid] 75 mcg PO SUTU 08/24/18 11/10/18 History Meclizine [Antivert] 12.5 mg PO BID 08/24/18 11/10/18 History Metolazone [Zaroxolyn] 2.5 mg PO DAILY 08/24/18 11/10/18 History Lisinopril [Zestril] 5 mg PO DAILY 11/10/18 11/10/18 History Allergies Allergy/AdvReac Type Severity Reaction Status Date / Time No Known Allergies Allergy Verified 08/24/18 22:01 Physical Exam Vitals: Vital Signs Temp Pulse Pulse Resp BP BP Pulse Ox 11/10/18 13:08 98.5 F 67 16 95/52 96 11/10/18 06:13 97.5 F L 63 18 102/65 96 11/10/18 02:10 98.2 F 56 L 16 100/63 96 11/10/18 01:35 99.4 F 63 16 97/64 97 11/10/18 00:46 100.1 F H 60 18 98/59 11/09/18 23:25 99.1 F 60 18 97/61 97 11/09/18 22:46 101.2 F H 62 18 101/60 97 11/09/18 22:12 77 18 110/71 96 11/09/18 21:14 102.6 F H 71 18 101/82 94 L Intake and Output 11/09/18 11/10/18 11/10/18 22:59 06:59 14:59 Other: # Voids 0 Weight 86.3 kg PHYSICAL EXAMINATION: GENERAL: Confused unable to obtain any kind of history from the patient, not in any acute distress. Well developed, well nourished. HEENT: Pupils are round and equally reacting to light. EOMI. No scleral icterus. No conjunctival pallor. Normocephalic, atraumatic. No pharyngeal erythema. No thyromegaly. CARDIOVASCULAR: S1 and S2 present. No murmurs, rubs, or gallops. PULMONARY: Chest is clear to auscultation, crackles on the left lower lung bases ABDOMEN: Soft, nontender, nondistended, normoactive bowel sounds. No palpable organomegaly. MUSCULOSKELETAL: No joint swelling or deformity. EXTREMITIES: No cyanosis, clubbing, or pedal edema. NEUROLOGICAL: Gross neurological examination did not reveal any focal deficits. SKIN: No rashes. Results CBC & Chem 7: 11/09/18 21:34 11/09/18 21:34 Labs: Abnormal Lab Results - Last 24 Hours (Table) 11/09/18 11/09/18 11/09/18 Range/Units 21:34 21:34 21:34 WBC 11.1 H (3.8-10.6) k/uL RBC 3.93 L (4.30-5.90) m/uL Hgb 11.4 L (13.0-17.5) gm/dL Hct 36.2 L (39.0-53.0) % RDW 15.6 H (11.5-15.5) % Neutrophils # 10.2 H (1.3-7.7) k/uL Lymphocytes # 0.4 L (1.0-4.8) k/uL PT 12.4 H (9.0-12.0) sec INR 1.2 H (<1.2) BUN 26 H (9-20) mg/dL Creatinine 1.40 H (0.66-1.25) mg/dL Glucose 105 H (74-99) mg/dL Total Bilirubin 1.8 H (0.2-1.3) mg/dL ALT 17 L (21-72) U/L Urine Protein (Negative) 11/09/18 Range/Units 23:50 WBC (3.8-10.6) k/uL RBC (4.30-5.90) m/uL Hgb (13.0-17.5) gm/dL Hct (39.0-53.0) % RDW (11.5-15.5) % Neutrophils # (1.3-7.7) k/uL Lymphocytes # (1.0-4.8) k/uL PT (9.0-12.0) sec INR (<1.2) BUN (9-20) mg/dL Creatinine (0.66-1.25) mg/dL Glucose (74-99) mg/dL Total Bilirubin (0.2-1.3) mg/dL ALT (21-72) U/L Urine Protein Trace H (Negative) Microbiology - Last 24 Hours (Table) 11/09/18 23:50 Urine Culture - Preliminary Urine,Catheterized Thrombosis Risk Factor Assmnt - Choose All That Apply Each Risk Factor Represents 3 Points: Age 75 years or older Thrombosis Risk Factor Assessment Total Risk Factor Score: 3 Thrombosis Risk Factor Assessment Level: Moderate Risk Assessment and Plan Plan: -Sepsis: Secondary to left lower lobe pneumonia most probably patient will be started on IV antibiotics Rocephin and azithromycin. Sputum cultures and blood cultures will be obtained. -Toxic encephalopathy and delirium from sepsis -Frontotemporal dementia: Appear To have moderate to severe dementia. -Acute renal failure with baseline creatinine 0.8 acute renal failure secondary to sepsis and excessive diuretic therapy which will be held patient was started on IV fluids need to be monitored for pulmonary edema and heart failure patient does have chronic diastolic dysfunction -I start failure chronic does just dysfunction without any acute exacerbation patient is hypovolemic holding off on diuretic therapy -Hypotension from sepsis and diuretic therapy which because of with diuretics are being held IV fluids as mentioned above patient is not in shock. -Atrial fibrillation, sick sinus syndrome beta lu will be switched to metoprolol because of hypotension from Coreg. Eliquis will be continued patient has a pacemaker in place -Benign prostatic able to -Hypothyroidism Patient is on anticoagulation which will be resumed for atrial fibrillation, patient will need GI prophylaxis.
[2018-11-10] MEDS ORDERED: FAMOTIDINE 20 MG TAB PO SCH ×2 (16:00→21:00)
[2018-11-10] MEDS: PANTOPRAZOLE 40 MG/10 ML VIAL IVP SCH (17:08)
--- NOTE | 2018-11-10 19:21 | XR ---
EXAMINATION TYPE: XR abdomen 3V DATE OF EXAM: 11/10/2018 COMPARISON: 11/09/2018 at 10:10 PM HISTORY: Pain TECHNIQUE: Upright abdomen and 2 supine pelvis radiographs were obtained. FINDINGS: Cardiac pacemaker redemonstrated. Left hemidiaphragm remains elevated, and the left lung base cannot be not seen as a result. The bowel gas pattern is unremarkable other than abundant volume of colonic stool. There is no pneuma tosis or pneumoperitoneum. No definite acute skeletal or soft tissue findings are evident. IMPRESSION: No definite acute radiographic process.
[2018-11-10] MEDS: METOPROLOL TARTRATE 25 MG TAB PO SCH (20:21)
[2018-11-10] MEDS: APIXABAN 2.5 MG TABLET PO SCH (20:22)
[2018-11-10] MEDS: TAMSULOSIN 0.4 MG CAP.ER.24H PO SCH (20:22)
[2018-11-10] MEDS: MIRTAZAPINE 15 MG TAB PO SCH (20:22)
[2018-11-10] MEDS: AZITHROMYCIN 500 MG TAB PO SCH (20:22)
[2018-11-11] MEDS: LEVOTHYROXINE 50 MCG TAB PO SCH (05:33)
[2018-11-11] MEDS ORDERED: LEVOTHYROXINE 50 MCG TAB PO SCH (06:30)
[2018-11-11] MEDS: APIXABAN 2.5 MG TABLET PO SCH (08:02)
[2018-11-11] MEDS: PANTOPRAZOLE 40 MG/10 ML VIAL IVP SCH (08:02)
[2018-11-11] MEDS: TAMSULOSIN 0.4 MG CAP.ER.24H PO SCH ×2 (08:02→20:45)
[2018-11-11] MEDS: ASPIRIN 81 MG PO SCH (08:02)
[2018-11-11] MEDS: METOPROLOL TARTRATE 25 MG TAB PO SCH ×2 (08:02→20:45)
[2018-11-11] MEDS: SODIUM CHLORIDE 0.9% 1,000 ML IV SCH ×3 (08:02→20:45)
--- NOTE | 2018-11-11 08:57 | XR ---
EXAMINATION TYPE: XR chest 2V DATE OF EXAM: 11/11/2018 COMPARISON: 11/09/2018 HISTORY: Shortness of breath TECHNIQUE: Frontal and lateral views of the chest are obtained. FINDINGS: Moderate-sized left sided opacity likely reflects pleural effusion and/or underlying atelectasis. Und erlying infiltrate or mass is difficult to exclude. Allowing for differences in technique no signific ant change is appreciated. Continued mild pulmonary venous congestion. Heart size is stable. Mediastinal structures are stable and grossly unremarkable. No evidence for hilar prominence. Degenerative changes dorsal spine. IMPRESSION: 1. Moderate-sized left sided opacity likely reflects pleural effusion and/or underlying atelectasis. Underlying infiltrate or mass is difficult to exclude. Allowing for differences in technique no signi ficant change is appreciated.
[2018-11-11] MEDS ORDERED: METOLAZONE 2.5 MG TAB PO SCH (09:00)
[2018-11-11 10:20] LABS: Anisocytosis Slight; HCT 31.5 % (39.0-53.0); HGB 10.2 gm/dL (13.0-17.5); MCH 29.6 pg (25.0-35.0); MCHC 32.3 g/dL (31.0-37.0); MCV 91.7 fL (80.0-100.0); Mean Platelet Volume 9.1; Platelet Count 118 k/uL (150-450); RBC 3.44 m/uL (4.30-5.90); RDW 16.1 % (11.5-15.5); WBC 9.4 k/uL (3.8-10.6)
[2018-11-11 10:42] LABS: Calcium 8.9 mg/dL (8.4-10.2); Potassium 3.9 mmol/L (3.5-5.1)
[2018-11-11] MEDS: predniSONE 20 MG TAB PO SCH (12:22)
--- NOTE | 2018-11-11 13:57 | P.CNPUL ---
History of Present Illness Consult date: 11/11/18 Requesting physician: Guerrero Chapman Reason for consult: pneumonia, pleural effusion, abnormal CXR/CT Chief complaint: Altered mental status, lethargy, hypotension and fever History of present illness: This 82-year-old white male patient of Dr. Morel, with history of dementia, Pick's disease, patient is a poor historian, atrial fibrillation, congestive heart failure, hypertension, hypothyroidism, benign prostatic hypertrophy, depression, left on nonsmoker, right breast nonmalignant tumor removal, chronic pacemaker, previous episode of pleural effusion with thoracentesis, who resides at home with his who is his caregiver. Patient was brought in to the emergency department on 11/09/2018 for evaluation of altered mental status, lethargy, fever, weakness, and poor appetite. states his symptoms started on Friday night, with the loss of appetite, and weakness, and progressed to lethargy. denies noticing any cough or patient complaining of shortness of breath. She also notes that he usually urinates nearly every hour related to his oral diuretics, and was noted to be urinating less. Chest x-ray showed moderately sized left pleural effusion with associated atelectasis versus infiltrate, trace right pleural effusion with right basilar atelectasis, and pulmonary vasculature congestion. Left-sided pacemaker was noted to be in place. X-ray of the abdomen showed nonspecific but nonobstructive bowel gas pattern, EKG showed atrial fibrillation with occasional PVCs, evidence of septal infarct of undetermined age, and nonspecific ST and T-wave abnormality in an terolateral leads. Admission labs have been reviewed showing white blood cell count of 11.1, hemoglobin of 11.4, platelet count 172, INR 1.2, electrolytes are within normal limits, B1 of 26 creatinine is 1.40, lactic acid of 1.4, urinalysis negative for infection. ProBNP was ordered today and came back elevated at 5510. Diuretics have been put on hold in view of worsening renal profile, days lab work shows BUN 36 and creatinine is 1.8, patient is receiving gentle IV hydration. Blood and urine cultures are negative, patient is not bringing up any sputum, currently on Zithromax and Rocephin for antibiotic coverage. Review of Systems All systems: negative Constitutional: Reports anorexia, Reports fatigue, Reports lethargy, Reports poor appetite, Reports weakness, Denies chills, Denies fever Eyes: denies blurred vision, denies pain Ears, nose, mouth and throat: Denies headache, Denies sore throat Cardiovascular: Denies chest pain, Denies shortness of breath Respiratory: Reports dyspnea, Denies cough Gastrointestinal: Denies abdominal pain, Denies diarrhea, Denies nausea, Denies vomiting Musculoskeletal: Denies myalgias Integumentary: Denies pruritus, Denies rash Neurological: Denies numbness, Denies weakness Psychiatric: Denies anxiety, Denies depression Endocrine: Denies fatigue, Denies weight change 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, 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 History of Any Multi-Drug Resistant Organisms: None Reported Past Surgical History: Appendectomy, Breast Surgery, Joint Replacement, Pacemaker, Prostate Surgery Additional Past Surgical History / Comment(s): BENIGN TUMOR REMOVED RT BREAST, rt knee replacement, cardioversion, DEJAN CATARACTS, thorascentesis Past Anesthesia/Blood Transfusion Reactions: No Reported Reaction Type of Cardiac Device: Permanent Pacemaker Device Placement Date:: unknown Past Psychological History: Depression Smoking Status: Never smoker Past Alcohol Use History: Rare Past Drug Use History: None Reported - Past Family History Mother Family Medical History: No Reported History Medications and Allergies Home Medications Medication Instructions Recorded Confirmed Type Aspirin EC [Ecotrin Low Dose] 81 mg PO DAILY 12/23/13 11/10/18 History Tamsulosin [Flomax] 0.4 mg PO BID 12/23/13 11/10/18 History Mirtazapine [Remeron] 30 mg PO HS 01/14/18 11/10/18 History Multivitamins, Thera [Multivitamin 1 tab PO DAILY 01/14/18 11/10/18 History (formulary)] Vit C/E/Zn/Coppr/Lutein/Zeaxan 2 cap PO DAILY 01/14/18 11/10/18 History [Preservision Areds 2 Softgel] Apixaban [Eliquis] 2.5 mg PO BID 04/30/18 11/10/18 History Furosemide [Lasix] 20 mg PO DAILY 04/30/18 11/10/18 History Levothyroxine Sodium [Synthroid] 50 mcg PO MOWETHFRSA 04/30/18 11/10/18 History Potassium Chloride [Klor-Con 20] 20 meq PO DAILY 04/30/18 11/10/18 History Carvedilol [Coreg] 6.25 mg PO BID 08/24/18 11/10/18 History Levothyroxine Sodium [Synthroid] 75 mcg PO SUTU 08/24/18 11/10/18 History Meclizine [Antivert] 12.5 mg PO BID 08/24/18 11/10/18 History Metolazone [Zaroxolyn] 2.5 mg PO DAILY 08/24/18 11/10/18 History Lisinopril [Zestril] 5 mg PO DAILY 11/10/18 11/10/18 History Allergies Allergy/AdvReac Type Severity Reaction Status Date / Time No Known Allergies Allergy Verified 08/24/18 22:01 Physical Exam Vitals: Vital Signs Temp Pulse Resp BP Pulse Ox 11/11/18 12:21 98.9 F 66 20 123/80 99 11/11/18 04:45 97.9 F 60 20 124/76 95 11/10/18 20:20 98.6 F 66 20 99/66 95 Intake and Output 11/10/18 11/11/18 11/11/18 22:59 06:59 14:59 Output Total 200 250 375 Balance -200 -250 -375 Output: Urine 200 250 375 Other: Voiding Method Indwelling Catheter Indwelling Catheter # Bowel Movements 0 GENERAL EXAM: Slightly somnolent but responsive, confused, poor historian, slow to respond verbally 82-year-old white male on 2 L of oxygen with a pulse ox of 99%, comfortable in no apparent distress. HEAD: Normocephalic/atraumatic. EYES: Normal reaction of pupils, equal size. Conjunctiva pink, sclera white. NOSE: Clear with pink turbinates. THROAT: No erythema or exudates. NECK: No masses, no JVD, no thyroid enlargement, no adenopathy. CHEST: No chest wall deformity. Symmetrical expansion. LUNGS: Equal air entry with no crackles, wheeze, rhonchi. Dementia breath sounds bilaterally, with dullness to percussion at the left lower base posteriorly CVS: Regular rate and rhythm, normal S1 and S2, no gallops, no murmurs, no rubs ABDOMEN: Soft, nontender. No hepatosplenomegaly, normal bowel sounds, no guarding or rigidity. EXTREMITIES: No clubbing, 1-2+ pitting edema, with slight erythema but no significant warmth no cyanosis, 2+ pulses and upper and lower extremities. MUSCULOSKELETAL: Muscle strength and tone normal. SPINE: No scoliosis or deformity SKIN: No rashes CENTRAL NERVOUS SYSTEM: Oriented -1. No focal deficits, tone is normal in all 4 extremities. Results - Laboratory Findings CBC and BMP: 11/11/18 09:34 11/11/18 09:34 PT/INR, D-dimer PT 12.4 sec (9.0-12.0) H 11/09/18 21:34 INR 1.2 (<1.2) H 11/09/18 21:34 Abnormal lab findings: Abnormal Labs 11/09/18 11/09/18 11/09/18 21:34 21:34 21:34 WBC 11.1 H RBC 3.93 L Hgb 11.4 L Hct 36.2 L RDW 15.6 H Plt Count Neutrophils # 10.2 H Lymphocytes # 0.4 L PT 12.4 H INR 1.2 H BUN 26 H Creatinine 1.40 H Glucose 105 H Total Bilirubin 1.8 H ALT 17 L Urine Protein 11/09/18 11/11/18 11/11/18 23:50 09:34 09:34 WBC RBC 3.44 L Hgb 10.2 L Hct 31.5 L RDW 16.1 H Plt Count 118 L Neutrophils # Lymphocytes # PT INR BUN 36 H Creatinine 1.80 H Glucose 125 H Total Bilirubin ALT Urine Protein Trace H - Diagnostic Findings Chest x-ray: report reviewed, image reviewed Additional studies: Ekg reviewed Assessment and Plan Plan: Assessment: #1. Acute sepsis related to left lower lung pneumonia, community acquired, with the possibility of parapneumonic effusion/versus pleural effusion of congestive heart failure #2. Altered mental status, fever, hypotension related to the above #3. Acute kidney injury related to dehydration, and diuretic therapy #4. Previous episode of pleural effusion with thoracentesis, laterality is not known to us, as well as the pleural fluid cytology or culture results #5. History of congestive heart failure diastolic dysfunction #6. History of chronic atrial fibrillation on Eliquis #7. Advanced dementia, Picks disease #8. Hypertension #9. Benign prostatic hypertrophy #10. Lifetime nonsmoker #11. History of benign breast tumor removed from the right breast #12. Depression Plan: We will obtain ultrasound of the left chest with markings, hold Eliquis, hold aspirin, CT of the chest is pending, continue with gentle hydration, is in no acute distress, no shortness of breath, he is on 2 L maintaining good oxygenation. Continue current antibiotic coverage. We'll continue to follow I performed a history & physical examination of the patient and discussed their management with my nurse practitioner, Christy Alexis. I reviewed the nurse practitioner's note and agree with the documented findings and plan of care. Lung sounds are positive for diminished breath sounds at the bases. The findings and the impression was discussed with the patient. I attest to the documentation by the nurse practitioner. Time with Patient: Greater than 30
--- NOTE | 2018-11-11 14:37 | CT ---
EXAMINATION TYPE: CT chest wo con DATE OF EXAM: 11/11/2018 COMPARISON: None HISTORY: Pulmonary congestion and pneumonia. CT DLP: [address] of the chest was performed with lung and mediastinal window settings submitted. The la ck of contrast limits evaluation of the vascular, mediastinal and parenchymal structures including th e upper abdomen. LUNGS: There is a large free-flowing pleural effusion extending from the left lung base to the left l michell apex. There is a left perihilar and left lower lobe atelectasis and/or infiltrate. Mass cannot be excluded. There is a small right-sided pleural effusion. MEDIASTINUM/SATYA: Thoracic aorta is of normal caliber with limited evaluation given lack of contrast . The heart is moderately enlarged. Tiny pericardial effusion noted. No evidence for mediastinal mas s. No lymph nodes greater than 1cm. UPPER ABDOMEN: Upper abdominal ascites noted. OTHER: No significant other abnormality. IMPRESSION: 1. Large left-sided pleural effusion with left perihilar and left basilar atelectasis and/or infiltr ate. Area megaly however no evidence for overt failure at this time.
--- NOTE | 2018-11-11 15:07 | US ---
EXAMINATION TYPE: US chest DATE OF EXAM: 11/11/2018 COMPARISON: None CLINICAL HISTORY: left pleural effusion. left chest marking TECHNIQUE: Targeted ultrasound of the posterior lower left hemithorax EXAM MEASUREMENTS: Left Pleural Effusion pocket size: 9.5 cm Left skin surface to fluid distance: 2.5 cm Left side marked for possible thoracentesis outside the dept. Pulmonologists are able to review the images in the patient?s EMR. IMPRESSIONS: Pleural effusion as noted.
--- NOTE | 2018-11-11 15:45 | P.PN ---
Subjective Progress Note Date: 11/11/18 Principal diagnosis: This is an 82-year-old male that was admitted to the hospital for altered mental status, fever, and infiltrates of the left lower lobe that is highly suspicious for pneumonia. Patiently is currently on IV antibiotic therapy of Rocephin and azithromycin. Patient is being monitored closely. Patient denies any shortness of breath, chest pain, or palpitations. Per who is at the bedside and is also his caregiver states that he is much more lethargic than normal and is often falling asleep more than his usual. states that he has not been coughing or bringing anything up at this time. Patient is eating but not as much is his normal as the states he has a good appetite at home. Patient had a CT without contrast of the chest done today which shows large left-sided pleural effusions with left. Hilar and left basilar atelectasis and or infiltrate. Area megaly however no evidence for overt failure at this time. A consult with Dr. Rodriges was placed. PT/OT is on board and patient was able to walk to the door and back in his room today. Will continue to follow. Objective - Vital Signs Vital signs: Vital Signs Temp 98.9 F 11/11/18 12:21 Pulse 66 11/11/18 12:21 Resp 20 11/11/18 12:21 BP 123/80 11/11/18 12:21 Pulse Ox 99 11/11/18 12:21 Intake & Output 11/10/18 11/11/18 11/11/18 18:59 06:59 18:59 Output Total 450 375 Balance -450 -375 Output: Urine 450 375 Other: Voiding Method Indwelling Catheter Indwelling Catheter # Bowel Movements 1 0 - Exam Gen: This is a 82-year-old male who is sitting upright in bed and appears in no acute distress. Vital signs are 98.9F temp, pulse is 66, respiratory rate is 20, blood pressure is 123/80, oxygen saturation is 99% on 2 L nasal cannula HEENT: Head is atraumatic, normocephalic. Pupils equal, round. Sclerae is an icteric. NECK: Supple. No JVD. No lymphadenopathy. No thyromegaly. LUNGS: Clear to auscultation and diminished with crackles in the lower bases. No wheezes or rhonchi. No intercostal retractions. HEART: Regular rate and rhythm. No murmur. ABDOMEN: Soft. Bowel sounds are present. No masses. Obese. No tenderness. EXTREMITIES: No pedal edema. No calf tenderness. NEUROLOGICAL: Patient is awake, alert and oriented x2. Cranial nerves 2 through 12 are grossly intact. No focal deficits - Labs CBC & Chem 7: 11/11/18 09:34 11/11/18 09:34 Labs: Abnormal Lab Results - Last 24 Hours (Table) 11/11/18 11/11/18 Range/Units 09:34 09:34 RBC 3.44 L (4.30-5.90) m/uL Hgb 10.2 L (13.0-17.5) gm/dL Hct 31.5 L (39.0-53.0) % RDW 16.1 H (11.5-15.5) % Plt Count 118 L (150-450) k/uL BUN 36 H (9-20) mg/dL Creatinine 1.80 H (0.66-1.25) mg/dL Glucose 125 H (74-99) mg/dL Microbiology - Last 24 Hours (Table) 11/09/18 23:50 Urine Culture - Final Urine,Catheterized 11/09/18 22:45 Blood Culture - Preliminary Blood No Growth after 24 hours Assessment and Plan Assessment: Sepsis: Secondary to left lower lobe pneumonia. Patient is currently on IV antibiotics of Rocephin and azithromycin. Sputum cultures and blood cultures will be obtained. No growth thus far after 24 hours. We will continue to monitor Toxic encephalopathy and delirium from sepsis Frontotemporal dementia: Appears to have moderate to severe dementia. has removed all medications for this from his daily regimen she felt they were not helping. is the caregiver at home Acute renal failure with baseline creatinine of 0.8: Acute renal failure secondary to sepsis and excessive diuretic therapy. Diuretics being held and patient is currently on gentle IV hydration of normal saline at 100 mL/hr. we will continue to monitor. Current creatinine is 1.8. We'll continue to monitor closely for pulmonary edema and heart failure as patient does have history of chronic diastolic dysfunction Hypovolemia: Will continue to hold diuretic therapy and monitor closely Chronic heart failure with diastolic dysfunction: Without any acute exacerbation Hypotension from sepsis and diuretic therapy: Diuretics currently being held. Patient is not in shock Atrial fibrillation, sick sinus syndrome. Beta lu was switched to metoprolol because of hypotension from Coreg. Eliquis being held at this time. Benign prostatic hypertrophy Hypothyroidism Continue current anticoagulation with heparin subq as patient has a pacemaker GI prophylaxis Recommendations and discussion: Recommend to continue current medications, continue symptomatic treatment. We'll continue IV antibiotics and will be started on oral steroids. Closely monitor. Guarded prognosis. Further recommendations to follow. Dr. Rodriges is following the patient is well.
[2018-11-11] MEDS: HEPARIN SODIUM,PORCINE 5,000 UNIT/ML 1 ML VIAL SQ SCH ×2 (17:56→23:17)
[2018-11-11] MEDS: MIRTAZAPINE 15 MG TAB PO SCH (20:45)
[2018-11-11] MEDS: AZITHROMYCIN 500 MG TAB PO SCH (20:45)
[2018-11-12] MEDS: LEVOTHYROXINE 50 MCG TAB PO SCH (05:54)
[2018-11-12] MEDS: METOPROLOL TARTRATE 25 MG TAB PO SCH ×2 (07:43→19:40)
[2018-11-12] MEDS: predniSONE 20 MG TAB PO SCH (07:44)
[2018-11-12] MEDS: PANTOPRAZOLE 40 MG/10 ML VIAL IVP SCH (07:44)
[2018-11-12] MEDS: SODIUM CHLORIDE 0.9% 1,000 ML IV SCH ×2 (07:44→09:02)
[2018-11-12] MEDS: TAMSULOSIN 0.4 MG CAP.ER.24H PO SCH ×2 (07:44→19:34)
[2018-11-12] MEDS: HEPARIN SODIUM,PORCINE 5,000 UNIT/ML 1 ML VIAL SQ SCH ×3 (07:44→22:50)
[2018-11-12 12:01] LABS: Calcium 8.8 mg/dL (8.4-10.2); Potassium 3.6 mmol/L (3.5-5.1)
--- NOTE | 2018-11-12 12:03 | P.PN ---
Subjective Progress Note Date: 11/12/18 Principal diagnosis: Altered mental status, lethargy, hypotension and fever This 82-year-old white male patient of Dr. Morel, with history of dementia, Pick's disease, patient is a poor historian, atrial fibrillation, congestive heart failure, hypertension, hypothyroidism, benign prostatic hypertrophy, depression, left on nonsmoker, right breast nonmalignant tumor removal, chronic pacemaker, previous episode of pleural effusion with thoracentesis, who resides at home with his who is his caregiver. Patient was brought in to the emergency department on 11/09/2018 for evaluation of altered mental status, lethargy, fever, weakness, and poor appetite. states his symptoms started on Friday night, with the loss of appetite, and weakness, and progressed to lethargy. denies noticing any cough or patient complaining of shortness of breath. She also notes that he usually urinates nearly every hour related to his oral diuretics, and was noted to be urinating less. Chest x-ray showed moderately sized left pleural effusion with associated atelectasis versus infiltrate, trace right pleural effusion with right basilar atelectasis, and pulmonary vasculature congestion. Left-sided pacemaker was noted to be in place. X-ray of the abdomen showed nonspecific but nonobstructive bowel gas pattern, EKG showed atrial fibrillation with occasional PVCs, evidence of septal infarct of undetermined age, and nonspecific ST and T-wave abnormality in anterolateral leads. Admission labs have been reviewed showing white blood cell count of 11.1, hemoglobin of 11.4, platelet count 172, INR 1.2, electrolytes are within normal limits, B1 of 26 creatinine is 1.40, lactic acid of 1.4, urinalysis negative for infection. ProBNP was ordered today and came back elevated at 5510. Diuretics have been put on hold in view of worsening renal profile, days lab work shows BUN 36 and creatinine is 1.8, patient is receiving gentle IV hydration. Blood and urine cultures are negative, patient is not bringing up any sputum, currently on Zithromax and Rocephin for antibiotic coverage. On 11/12/2018 patient was seen in follow-up on medical surgical floor. Looking much more awake today, following commands, interacting. Denies any shortness of breath, room air pulse ox is 98%, afebrile, hemodynamically stable, lung sounds reveal diminished breath sounds at the bases, more so on the left. No new labs today, BMP is pending, blood culture no growth at 48 hours, urine culture is negative, we were unable to send the sputum culture. Antibiotic coverage in the form of Zithromax and Rocephin, patient is receiving IV hydration, chest ultrasound was reviewed showing left pleural effusion pocket of 9.5 cm, received with left-sided thoracentesis this afternoon Objective - Vital Signs Vital signs: Vital Signs Temp 97.8 F 11/12/18 05:00 Pulse 53 L 11/12/18 05:00 Resp 16 11/12/18 08:00 BP 126/77 11/12/18 05:00 Pulse Ox 98 11/12/18 05:00 Intake & Output 11/11/18 11/12/18 11/12/18 18:59 06:59 18:59 Intake Total 300 Output Total 375 1600 Balance -375 -1300 Intake: Oral 300 Output: Urine 375 1600 Uretheral ([place]bright) 800 Other: Voiding Method Indwelling Catheter Indwelling Catheter Indwelling Catheter # Bowel Movements 0 0 - Exam GENERAL EXAM: Awake and alert, oriented times one, confused, poor historian, slow to respond verbally 82-year-old white male on room air, with a pulse ox 98 %, comfortable in no apparent distress. HEAD: Normocephalic/atraumatic. EYES: Normal reaction of pupils, equal size. Conjunctiva pink, sclera white. NOSE: Clear with pink turbinates. THROAT: No erythema or exudates. NECK: No masses, no JVD, no thyroid enlargement, no adenopathy. CHEST: No chest wall deformity. Symmetrical expansion. LUNGS: Equal air entry with no crackles, wheeze, rhonchi. Diminished breath sounds bilaterally, with dullness to percussion at the left lower base posteriorly CVS: Regular rate and rhythm, normal S1 and S2, no gallops, no murmurs, no rubs ABDOMEN: Soft, nontender. No hepatosplenomegaly, normal bowel sounds, no guarding or rigidity. EXTREMITIES: No clubbing, 1-2+ pitting edema, with slight erythema but no significant warmth no cyanosis, 2+ pulses and upper and lower extremities. MUSCULOSKELETAL: Muscle strength and tone normal. SPINE: No scoliosis or deformity SKIN: No rashes CENTRAL NERVOUS SYSTEM: Oriented -1. No focal deficits, tone is normal in all 4 extremities. - Labs CBC & Chem 7: 11/11/18 09:34 11/11/18 09:34 Labs: Microbiology - Last 24 Hours (Table) 11/09/18 22:45 Blood Culture - Preliminary Blood No Growth after 48 hours 11/09/18 23:50 Urine Culture - Final Urine,Catheterized Assessment and Plan Plan: Assessment: #1. Acute sepsis related to left lower lung pneumonia, community acquired, with the possibility of parapneumonic effusion/versus pleural effusion of congestive heart failure #2. Altered mental status, fever, hypotension related to the above #3. Acute kidney injury related to dehydration, and diuretic therapy #4. Previous episode of pleural effusion with thoracentesis, laterality is not known to us, as well as the pleural fluid cytology or culture results #5. History of congestive heart failure diastolic dysfunction #6. History of chronic atrial fibrillation on Eliquis #7. Advanced dementia, Picks disease #8. Hypertension #9. Benign prostatic hypertrophy #10. Lifetime nonsmoker #11. History of benign breast tumor removed from the right breast #12. Depression Plan: We'll proceed with a left-sided thoracentesis this afternoon, Eliquis and aspirin are on hold, clinically patient is looking is sounding better, he is more awake, interactive, vital signs are stable. Will continue current antibiotic coverage, continue with IV hydration, repeat BMP is pending. Plan was discussed with patient and his , and they're agreeable to proceed with left thoracentesis I performed a history & physical examination of the patient and discussed their management with my nurse practitioner, Christy Alexis. I reviewed the nurse practitioner's note and agree with the documented findings and plan of care. Lung sounds are positive for diminished breath sounds at the bases. The findings and the impression was discussed with the patient. I attest to the doc umentation by the nurse practitioner. Time with Patient: Less than 30
--- NOTE | 2018-11-12 15:04 | XR ---
"EXAMINATION TYPE: XR chest 1V portable DATE OF EXAM: 11/12/2018 COMPARISON: 11/11/2018 INDICATION: Status post left thoracentesis TECHNIQUE: Single frontal view of the chest is obtained. FINDINGS: The heart size is mildly prominent. The pulmonary vasculature is normal. Minimal infiltrate is at the right base. Previous moderate left pleural effusion has resolved. Residu al may be at the costophrenic angle. There is a left apical pneumothorax estimated at 20%. IMPRESSION: 1. Left apical pneumothorax estimated at 20%. A Red level critical message alert has been initiated for Rambo Gee MD via the [employer] 36 0 | Critical Results System on 11/12/2018 3:01 PM. This message alert has been sent to Rambo aguirre MD via the preferences provided by the clinician for the receipt of Radiology Critical Findings. Message ID [id number]."
[2018-11-12 16:36] LABS: Appearance,BF Blood Tinged; Nucleated Cells, Body Fluid 11800 /uL; RBC, Body Fluid 200 /uL
[2018-11-12 16:38] LABS: Mononuclear WBC,Body Fluid 22 %; Polynuclear WBC,Body Fluid 77 %; Total Cells Counted,Body Fluid 100
--- NOTE | 2018-11-12 17:10 | P.PN ---
Subjective Progress Note Date: 11/12/18 Principal diagnosis: This is an 82-year-old male that was admitted to the hospital for altered mental status, fever, and infiltrates of the left lower lobe that is highly suspicious for pneumonia. Patiently is currently on IV antibiotic therapy of Rocephin and azithromycin. Patient is being monitored closely. Patient denies any shortness of breath, chest pain, or palpitations. Per who is at the bedside and is also his caregiver states that he is much more lethargic than normal and is often falling asleep more than his usual. states that he has not been coughing or bringing anything up at this time. Patient is eating but not as much is his normal as the states he has a good appetite at home. Patient had a CT without contrast of the chest done today which shows large left-sided pleural effusions with left. Hilar and left basilar atelectasis and or infiltrate. Area megaly however no evidence for overt failure at this time. A consult with Dr. Rodriges was placed. PT/OT is on board and patient was able to walk to the door and back in his room today. Will continue to follow. 11/12/18 Patient is sitting up eating breakfast in bed and appears in no acute distress. Patient is currently on room air and maintaining oxygen saturation at 98% on adelfo m air. Patient denies any shortness of breath, chest pain, or palpitations. Patient does have a history of dementia and is alert and oriented to name but doesn't talk very much. Answers with yes and no. This is baseline per . Patient is still currently on IV antibiotics of a cephamycin and ceftriaxone. Patient is to have a thoracentesis of the left side today at the bedside for pleural effusion. We will continue to follow. Patient remains afebrile at this time. Objective - Vital Signs Vital signs: Vital Signs Temp 97.8 F 11/12/18 05:00 Pulse 53 L 11/12/18 05:00 Resp 16 11/12/18 08:00 BP 126/77 11/12/18 05:00 Pulse Ox 98 11/12/18 05:00 Intake & Output 11/11/18 11/12/18 11/12/18 18:59 06:59 18:59 Intake Total 300 Output Total 375 1600 Balance -375 -1300 Intake: Oral 300 Output: Urine 375 1600 Uretheral (Albright) 800 Other: Voiding Method Indwelling Catheter Indwelling Catheter Indwelling Catheter # Bowel Movements 0 0 - Exam Gen: This is a 82-year-old male who is sitting upright in bed and appears in no acute distress. Vital signs are 97.8F temp, pulse is 53, respiratory rate is 1 6, blood pressure is 126/77, oxygen saturation is 98% on room air HEENT: Head is atraumatic, normocephalic. Pupils equal, round. Sclerae is anicteric. NECK: Supple. No JVD. No lymphadenopathy. No thyromegaly. LUNGS: Clear to auscultation and diminished with crackles in the lower bases. No wheezes or rhonchi. No intercostal retractions. HEART: Regular rate and rhythm. No murmur. ABDOMEN: Soft. Bowel sounds are present. No masses. Obese. No tenderness. EXTREMITIES: No pedal edema. No calf tenderness. NEUROLOGICAL: Patient is awake, alert and oriented x2. Cranial nerves 2 through 12 are grossly intact. No focal deficits - Labs CBC & Chem 7: 11/11/18 09:34 11/12/18 11:28 Labs: Abnormal Lab Results - Last 24 Hours (Table) 11/11/18 Range/Units 09:34 BUN 36 H (9-20) mg/dL Creatinine 1.80 H (0.66-1.25) mg/dL Glucose 125 H (74-99) mg/dL Microbiology - Last 24 Hours (Table) 11/09/18 22:45 Blood Culture - Preliminary Blood No Growth after 48 hours 11/09/18 23:50 Urine Culture - Final Urine,Catheterized Assessment and Plan Assessment: Sepsis: Secondary to left lower lobe pneumonia. Patient is currently on IV antibiotics of Rocephin and azithromycin. Sputum cultures and blood cultures will be obtained. No growth thus far after 48 hours. We will continue to monitor Toxic encephalopathy and delirium from sepsis Frontotemporal dementia: Appears to have moderate to severe dementia. has removed all medications for this from his daily regimen she felt they were not helping. is the caregiver at home Acute renal failure with baseline creatinine of 0.8: Acute renal failure seco ndary to sepsis and excessive diuretic therapy. Diuretics being held and patient is currently on gentle IV hydration of normal saline at 100 mL/hr. we will continue to monitor. Current creatinine is 1.27. We'll continue to monitor closely for pulmonary edema and heart failure as patient does have history of chronic diastolic dysfunction Hypovolemia: Will continue to hold diuretic therapy and monitor closely Chronic heart failure with diastolic dysfunction: Without any acute exacerbation Hypotension from sepsis and diuretic therapy: Diuretics currently being held. Patient is not in shock Atrial fibrillation, sick sinus syndrome. Beta lu was switched to metoprolol because of hypotension from Coreg. Eliquis being held at this time. Benign prostatic hypertrophy Hypothyroidism Continue current anticoagulation with heparin subq as patient has a pacemaker GI prophylaxis Recommendations and discussion: Recommend to continue current medications, continue symptomatic treatment. Will l continue IV antibiotics and oral steroids. Closely monitor. Guarded prognosis. Further recommendations to follow. Dr. Rodriges is following the patient as well. Will await for thoracentesis report. Possible discharge in 24-48 hours.
[2018-11-12] MEDS: AZITHROMYCIN 500 MG TAB PO SCH (19:34)
[2018-11-12] MEDS: MIRTAZAPINE 15 MG TAB PO SCH (19:34)
--- NOTE | 2018-11-12 23:02 | PCN ---
PROCEDURE NOTE PROCEDURE: Left thoracentesis. PREOPERATIVE DIAGNOSIS: Left pleural effusion. POSTOPERATIVE DIAGNOSIS: Left pleural effusion. OPERATORS: 1. Pepe Rodriges M.D. 2. Dr. Vanessa Griffin. 3. Christy Alexis. PROCEDURE DESCRIPTION: There was informed consent and universal timeout verifying correct patient, procedure, site, positioning and implant(s) or special equipment if applicable. The posterior chest on the left was marked by ultrasound. Appropriate fluid pocket was identified and marked. Patient was positioned, prepped and draped in usual sterile fashion. Lidocaine was used to anesthetize the area. A thoracentesis catheter was introduced into the pleural space and fluid was removed. Blood loss was none. A chest x-ray was ordered afterwards to evaluate for pneumothorax. Total Fluid Removed: 0.7 liters from the left pleural space. Color of Fluid: Dark brown Fluid was sent for analysis, including chemistry, cytology and microbiology. Patient tolerated the procedure well and there were no complications. No additional recommendations are made. MMODL / IJN: [id number] / MTDD
[2018-11-13] LABS: Total Protein, Body Fluid 3140 mg/dL
[2018-11-13] MEDS: LEVOTHYROXINE 50 MCG TAB PO SCH (05:35)
[2018-11-13] MEDS: SODIUM CHLORIDE 0.9% 1,000 ML IV SCH (05:35)
[2018-11-13] MEDS: HEPARIN SODIUM,PORCINE 5,000 UNIT/ML 1 ML VIAL SQ SCH ×3 (08:18→23:33)
[2018-11-13] MEDS: TAMSULOSIN 0.4 MG CAP.ER.24H PO SCH ×2 (08:18→20:43)
[2018-11-13] MEDS: PANTOPRAZOLE 40 MG/10 ML VIAL IVP SCH (08:18)
[2018-11-13] MEDS: predniSONE 20 MG TAB PO SCH (08:18)
[2018-11-13] MEDS: METOPROLOL TARTRATE 25 MG TAB PO SCH ×2 (08:18→20:43)
--- NOTE | 2018-11-13 08:21 | XR ---
EXAMINATION TYPE: XR chest 2V DATE OF EXAM: 11/13/2018 COMPARISON: 11/12/2018 HISTORY: Shortness of breath TECHNIQUE: Frontal and lateral views of the chest are obtained. FINDINGS: Scattered senescent parenchymal changes noted. Hyperinflation compatible with COPD. 10% left apical pneumothorax persists and appears to be slightly smaller in size. Left perihilar left lower lobe infiltrate and effusion persists. Improved aeration at the right lung base. Small right-sided effusion. Heart size is stable. Mediastinal structures are stable and grossly unremarkable. No evidence for hilar prominence. Degenerative changes dorsal spine. IMPRESSION: 1. 10% left apical pneumothorax persists and appears to be slightly smaller in size. 2. Left perihilar left lower lobe infiltrate and effusion persists. Improved aeration at the right geovanni ng base. Small right-sided effusion.
[2018-11-13 10:04] LABS: Calcium 8.8 mg/dL (8.4-10.2); Potassium 3.4 mmol/L (3.5-5.1)
--- NOTE | 2018-11-13 10:40 | P.PN ---
Subjective Progress Note Date: 11/13/18 Principal diagnosis: Altered mental status, lethargy, hypotension and fever This 82-year-old white male patient of Dr. Morel, with history of dementia, Pick's disease, patient is a poor historian, atrial fibrillation, congestive heart failure, hypertension, hypothyroidism, benign prostatic hypertrophy, depression, left on nonsmoker, right breast nonmalignant tumor removal, chronic pacemaker, previous episode of pleural effusion with thoracentesis, who resides at home with his who is his caregiver. Patient was brought in to the emergency department on 11/09/2018 for evaluation of altered mental status, lethargy, fever, weakness, and poor appetite. states his symptoms started on Friday night, with the loss of appetite, and weakness, and progressed to lethargy. denies noticing any cough or patient complaining of shortness of breath. She also notes that he usually urinates nearly every hour related to his oral diuretics, and was noted to be urinating less. Chest x-ray showed moderately sized left pleural effusion with associated atelectasis versus infiltrate, trace right pleural effusion with right basilar atelectasis, and pulmonary vasculature congestion. Left-sided pacemaker was noted to be in place. X-ray of the abdomen showed nonspecific but nonobstructive bowel gas pattern, EKG showed atrial fibrillation with occasional PVCs, evidence of septal infarct of undetermined age, and nonspecific ST and T-wave abnormality in anterolateral leads. Admission labs have been reviewed showing white blood cell count of 11.1, hemoglobin of 11.4, platelet count 172, INR 1.2, electrolytes are within normal limits, B1 of 26 creatinine is 1.40, lactic acid of 1.4, urinalysis negative for infection. ProBNP was ordered today and came back elevated at 5510. Diuretics have been put on hold in view of worsening renal profile, days lab work shows BUN 36 and creatinine is 1.8, patient is receiving gentle IV hydration. Blood and urine cultures are negative, patient is not bringing up any sputum, currently on Zithromax and Rocephin for antibiotic coverage. On 11/12/2018 patient was seen in follow-up on medical surgical floor. Looking much more awake today, following commands, interacting. Denies any shortness of breath, room air pulse ox is 98%, afebrile, hemodynamically stable, lung sounds reveal diminished breath sounds at the bases, more so on the left. No new labs today, BMP is pending, blood culture no growth at 48 hours, urine culture is negative, we were unable to send the sputum culture. Antibiotic coverage in the form of Zithromax and Rocephin, patient is receiving IV hydration, chest ultrasound was reviewed showing left pleural effusion pocket of 9.5 cm, received with left-sided thoracentesis this afternoon. On 11/13/2018 patient seen in follow-up on medical surgical floor. Patient is breathing easier, vital signs are stable, he is afebrile, is status post left- sided thoracentesis yesterday would removal of 1700 mL of fluid, pleural fluid cytology is pending, cultures are pending, Gram stain showed no organisms, final culture is pending. Fluid analysis showed low LDH at 75, 77 of polynuclear WBCs, and fluid protein of 3.1 g, and this combination of exudative and transudative fluid possibly related to underlying infection, and congestive heart failure. After the procedure chest x-ray showed left apical pneumothorax estimated at 20%, clinically patient is asymptomatic, follow-up chest x-ray was obtained today, showing 10% left apical pneumothorax, decreased in size. Rocephin and Zithromax antibiotic coverage, oral prednisone 60 mg continue. Patient is on 2 L of oxygen with a pulse ox of 100%. His labs have been reviewed, showing sodium of 141, potassium 3.4, chloride is 109, CO2 is 23, BUN of 29 creatinine is 1.15 Objective - Vital Signs Vital signs: Vital Signs Temp 97.8 F 11/13/18 04:50 Pulse 66 11/13/18 04:50 Resp 20 11/13/18 04:50 BP 130/78 11/13/18 04:50 Pulse Ox 100 11/13/18 04:50 Intake & Output 11/12/18 11/13/18 11/13/18 18:59 06:59 18:59 Intake Total 300 Output Total 300 1400 Balance -300 -1100 Intake: Oral 300 Output: Urine 300 1400 Uretheral (Albright) 700 Other: Voiding Method Indwelling Catheter Indwelling Catheter # Voids 0 # Bowel Movements 1 - Exam GENERAL EXAM: Awake and alert, oriented times one, confused, poor historian, 82-year-old white male on room air, with a pulse ox 98%, comfortable in no apparent distress. HEAD: Normocephalic/atraumatic. EYES: Normal reaction of pupils, equal size. Conjunctiva pink, sclera white. NOSE: Clear with pink turbinates. THROAT: No erythema or exudates. NECK: No masses, no JVD, no thyroid enlargement, no adenopathy. CHEST: No chest wall deformity. Symmetrical expansion. LUNGS: Equal air entry with no crackles, wheeze, rhonchi. Diminished breath sounds bilaterally, with dullness to percussion at the left lower base posteriorly CVS: Regular rate and rhythm, normal S1 and S2, no gallops, no murmurs, no rubs ABDOMEN: Soft, nontender. No hepatosplenomegaly, normal bowel sounds, no guarding or rigidity. EXTREMITIES: No clubbing, 1-2+ pitting edema, with slight erythema but no significant warmth no cyanosis, 2+ pulses and upper and lower extremities. MUSCULOSKELETAL: Muscle strength and tone normal. SPINE: No scoliosis or deformity SKIN: No rashes CENTRAL NERVOUS SYSTEM: Oriented -1. No focal deficits, tone is normal in all 4 extremities. - Labs CBC & Chem 7: 11/11/18 09:34 11/13/18 09:19 Labs: Abnormal Lab Results - Last 24 Hours (Table) 11/12/18 11/13/18 Range/Units 11:28 09:19 Potassium 3.4 L (3.5-5.1) mmol/L Chloride 109 H (98-107) mmol/L Carbon Dioxide 20 L (22-30) mmol/L BUN 30 H 29 H (9-20) mg/dL Creatinine 1.27 H (0.66-1.25) mg/dL Glucose 150 H 101 H (74-99) mg/dL Microbiology - Last 24 Hours (Table) 11/12/18 13:00 Gram Stain - Preliminary Pleural Fluid Body Fluid Culture - Preliminary 11/09/18 22:45 Blood Culture - Preliminary Blood No Growth after 72 hours 11/12/18 13:00 Acid Fast Bacilli Culture - Preliminary Pleural Fluid 11/12/18 13:00 Fungal Culture - Preliminary Pleural Fluid Assessment and Plan Plan: Assessment: #1. Acute sepsis related to left lower lung pneumonia, community acquired, with the possibility of parapneumonic effusion/versus pleural effusion of congestive heart failure, pleural fluid analysis shows low LDH, but high fluid protein, and PMNs, combination of transudative and exudative fluid, fluid cultures are pending, cytology is pending #2. Small left apical pneumothorax 20%, following left thoracentesis, improving on today's chest x-ray, clinically patient is asymptomatic #3. Altered mental status, fever, hypotension related to the above #4. Acute kidney injury related to dehydration, and diuretic therapy #5. Previous episode of pleural effusion with thoracentesis, laterality is not known to us, as well as the pleural fluid cytology or culture results #6. History of congestive heart failure diastolic dysfunction #7. History of chronic atrial fibrillation on Eliquis #8. Advanced dementia, Picks disease #9. Hypertension #10. Benign prostatic hypertrophy #11. Lifetime nonsmoker #12. 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 Depression Plan: Continue current medical treatment, awaiting the final cultures of the pleural fluid, and cytology. Today's chest x-ray shows improvement in the appearance of the left apical pneumothorax, clinically patient is asymptomatic, wean FiO2, encourage to sit up in the chair, deep breathing cough, afebrile, continue same antibiotics, will follow I performed a history & physical examination of the patient and discussed their management with my nurse practitioner, Christy Alexis. I reviewed the nurse practitioner's note and agree with the documented findings and plan of care. Lung sounds are positive for diminished breath sounds at the bases. The findings and the impression was discussed with the patient. I attest to the documentation by the nurse practitioner. Time with Patient: Less than 30
[2018-11-13] MEDS ORDERED: POTASSIUM CHLORIDE ER 20 MEQ TAB.ER PO STA (12:05)
--- NOTE | 2018-11-13 16:36 | P.PN ---
Subjective Progress Note Date: 11/13/18 Principal diagnosis: This is an 82-year-old male that was admitted to the hospital for altered mental status, fever, and infiltrates of the left lower lobe that is highly suspicious for pneumonia. Patiently is currently on IV antibiotic therapy of Rocephin and azithromycin. Patient is being monitored closely. Patient denies any shortness of breath, chest pain, or palpitations. Per who is at the bedside and is also his caregiver states that he is much more lethargic than normal and is often falling asleep more than his usual. states that he has not been coughing or bringing anything up at this time. Patient is eating but not as much is his normal as the states he has a good appetite at home. Patient had a CT without contrast of the chest done today which shows large left-sided pleural effusions with left. Hilar and left basilar atelectasis and or infiltrate. Area megaly however no evidence for overt failure at this time. A consult with Dr. Rodriges was placed. PT/OT is on board and patient was able to walk to the door and back in his room today. Will continue to follow. 11/12/18 Patient is sitting up eating breakfast in bed and appears in no acute distress. Patient is currently on room air and maintaining oxygen saturation at 98% on adelfo m air. Patient denies any shortness of breath, chest pain, or palpitations. Patient does have a history of dementia and is alert and oriented to name but doesn't talk very much. Answers with yes and no. This is baseline per . Patient is still currently on IV antibiotics of a cephamycin and ceftriaxone. Patient is to have a thoracentesis of the left side today at the bedside for pleural effusion. We will continue to follow. Patient remains afebrile at this time. 11/13/2018 Patient is again sitting up in his bed and eating breakfast and appears to be in no acute distress. When entering the room patient was on oxygen via nasal cannula at 2 L with a saturation of 100%. Spoke to the nurse and requested to have the patient be on room air and reevaluate as the patient doesn't normally use oxygen at home. Patient denies any shortness of breath, chest pains, or palpitations. Due to his advancing dementia patient only answers and yes no format. Per this is his usual. Patient remains afebrile at this time. Patient underwent a left side thoracentesis yesterday of which 1800 mL's were removed. Chest x-ray did show a small left pneumothorax at 20%. Today's chest x-ray has improved showing 10% at this time. Patient's current potassium is 3.4 this morning and was replaced. Will monitor labs in the morning and recheck a BMP. Current creatinine has improved from 1.27 now to 1.15. Objective - Vital Signs Vital signs: Vital Signs Temp 97.8 F 11/13/18 12:12 Pulse 61 11/13/18 12:12 Resp 20 11/13/18 12:12 BP 123/78 11/13/18 12:12 Pulse Ox 100 11/13/18 12:12 Intake & Output 11/12/18 11/13/18 11/13/18 18:59 06:59 18:59 Intake Total 300 Output Total 300 1400 300 Balance -300 -1100 -300 Intake: Oral 300 Output: Urine 300 1400 300 Uretheral (Albright) 700 Other: Voiding Method Indwelling Catheter Indwelling Catheter Indwelling Catheter # Voids 0 # Bowel Movements 1 0 - Exam Gen: This is a 82-year-old male who is sitting upright in bed and appears in no acute distress. Vital signs are 97.8F temp, pulse is 66, respiratory rate is 20, blood pressure is 130/78, oxygen saturation is 100% on 2L NC HEENT: Head is atraumatic, normocephalic. Pupils equal, round. Sclerae is anicteric. NECK: Supple. No JVD. No lymphadenopathy. No thyromegaly. LUNGS: Clear to auscultation and diminished with crackles in the lower bases. No wheezes or rhonchi. No intercostal retractions. HEART: Regular rate and rhythm. No murmur. ABDOMEN: Soft. Bowel sounds are present. No masses. Obese. No tenderness. EXTREMITIES: No pedal edema. No calf tenderness. NEUROLOGICAL: Patient is awake, alert and oriented x2. Cranial nerves 2 through 12 are grossly intact. No focal deficits - Labs CBC & Chem 7: 11/11/18 09:34 11/13/18 09:19 Labs: Abnormal Lab Results - Last 24 Hours (Table) 11/13/18 Range/Units 09:19 Potassium 3.4 L (3.5-5.1) mmol/L Chloride 109 H (98-107) mmol/L BUN 29 H (9-20) mg/dL Glucose 101 H (74-99) mg/dL Microbiology - Last 24 Hours (Table) 11/12/18 13:00 Gram Stain - Preliminary Pleural Fluid Body Fluid Culture - Preliminary 11/09/18 22:45 Blood Culture - Preliminary Blood No Growth after 72 hours 11/12/18 13:00 Acid Fast Bacilli Culture - Preliminary Pleural Fluid 11/12/18 13:00 Fungal Culture - Preliminary Pleural Fluid Assessment and Plan Assessment: Sepsis: Secondary to left lower lobe pneumonia. Patient is currently on IV antibiotics of Rocephin and azithromycin. Sputum cultures and blood cultures will be obtained. No growth thus far after 48 hours. We will continue to monitor Toxic encephalopathy and delirium from sepsis Frontotemporal dementia: Appears to have moderate to severe dementia. has removed all medications for this from his daily regimen she felt they were not helping. is the caregiver at home Acute renal failure with baseline creatinine of 0.8: Acute renal failure secondary to sepsis and excessive diuretic therapy. Diuretics being held and IV fluids are being held as well. we will continue to monitor. Current creatinine is 1.15. We'll continue to monitor closely for pulmonary edema and heart failur e as patient does have history of chronic diastolic dysfunction Hypovolemia: Will continue to hold diuretic therapy and monitor closely Chronic heart failure with diastolic dysfunction: Without any acute exacerbation Hypotension from sepsis and diuretic therapy: Diuretics currently being held. Patient is not in shock Atrial fibrillation, sick sinus syndrome. Beta lu was switched to metoprol ol because of hypotension from Coreg. Eliquis being held at this time. Benign prostatic hypertrophy Hypothyroidism Continue current anticoagulation with heparin subq as patient has a pacemaker GI prophylaxis Left-sided pneumothorax status post thoracentesis: Was 20% and has improved from yesterday and is now 10%. Will continue to monitor. Recheck chest x-ray in a.m. Recommendations and discussion: Recommend to continue current medications, continue symptomatic treatment. Willl continue IV antibiotics and oral steroids. Closely monitor. Guarded prognosis. Further recommendations to follow. Dr. Rodriges is following the patient as well. Possible discharge in 24-48 hours.
[2018-11-13] MEDS: MIRTAZAPINE 15 MG TAB PO SCH (20:43)
[2018-11-13] MEDS: AZITHROMYCIN 500 MG TAB PO SCH (20:43)
[2018-11-13 23:31] VITALS: PULSE 60; TEMP 97.6
[2018-11-14] MEDS: LEVOTHYROXINE 50 MCG TAB PO SCH (05:10)
[2018-11-14 06:43] VITALS: BP 147/88; RESP 20
--- NOTE | 2018-11-14 07:55 | XR ---
EXAMINATION TYPE: XR chest 2V DATE OF EXAM: 11/14/2018 HISTORY: shortness of breath. REFERENCE: Previous study dated 11/13/2018. FINDINGS: There is unipolar pacemaker place on the left. The heart is mildly enlarged. There is left basilar airspace disease with an accompanying small left effusion. A definite left-sided pneumothorax is not seen.. IMPRESSION: 1. RESOLUTION PATIENT'S LEFT APICAL PNEUMOTHORAX. 2. MILD CARDIOMEGALY. 3. LEFT-SIDED AIRSPACE DISEASE WITH A CONCOMITANT EFFUSION.
[2018-11-14] MEDS: TAMSULOSIN 0.4 MG CAP.ER.24H PO SCH (07:58)
[2018-11-14] MEDS: PANTOPRAZOLE 40 MG/10 ML VIAL IVP SCH (07:58)
[2018-11-14] MEDS: HEPARIN SODIUM,PORCINE 5,000 UNIT/ML 1 ML VIAL SQ SCH (07:58)
[2018-11-14] MEDS: METOPROLOL TARTRATE 25 MG TAB PO SCH (07:58)
[2018-11-14] MEDS: predniSONE 20 MG TAB PO SCH (07:58)
[2018-11-14 09:14] LABS: Calcium 9.3 mg/dL (8.4-10.2); Potassium 3.6 mmol/L (3.5-5.1)
--- NOTE | 2018-11-14 12:11 | P.PN ---
Subjective Progress Note Date: 11/14/18 Principal diagnosis: Altered mental status, lethargy, hypotension and fever, pleural effusion This 82-year-old white male patient of Dr. Morel, with history of dementia, Pick's disease, patient is a poor historian, atrial fibrillation, congestive heart failure, hypertension, hypothyroidism, benign prostatic hypertrophy, depression, left on nonsmoker, right breast nonmalignant tumor removal, chronic pacemaker, previous episode of pleural effusion with thoracentesis, who resides at home with his who is his caregiver. Patient was brought in to the emergency department on 11/09/2018 for evaluation of altered mental status, lethargy, fever, weakness, and poor appetite. states his symptoms started on Friday night, with the loss of appetite, and weakness, and progressed to lethargy. denies noticing any cough or patient complaining of shortness of breath. She also notes that he usually urinates nearly every hour related to his oral diuretics, and was noted to be urinating less. Chest x-ray showed moderately sized left pleural effusion with associated atelectasis versus infiltrate, trace right pleural effusion with right basilar atelectasis, and pulmonary vasculature congestion. Left-sided pacemaker was noted to be in place. X-ray of the abdomen showed nonspecific but nonobstructive bowel gas pattern, EKG showed atrial fibrillation with occasional PVCs, evidence of septal infarct of undetermined age, and nonspecific ST and T-wave abnormality in anterolateral leads. Admission labs have been reviewed showing white blood cell count of 11.1, hemoglobin of 11.4, platelet count 172, INR 1.2, electrolytes are within normal limits, B1 of 26 creatinine is 1.40, lactic acid of 1.4, urinalysis negative for infection. ProBNP was ordered today and came back elevated at 5510. Diuretics have been put on hold in view of worsening renal profile, days lab work shows BUN 36 and creatinine is 1.8, patient is receiving gentle IV hydration. Blood and urine cultures are negative, patient is not bringing up any sputum, currently on Zithromax and Rocephin for antibiotic coverage. On 11/12/2018 patient was seen in follow-up on medical surgical floor. Looking much more awake today, following commands, interacting. Denies any shortness of breath, room air pulse ox is 98%, afebrile, hemodynamically stable, lung sounds reveal diminished breath sounds at the bases, more so on the left. No new labs today, BMP is pending, blood culture no growth at 48 hours, urine culture is negative, we were unable to send the sputum culture. Antibiotic coverage in the form of Zithromax and Rocephin, patient is receiving IV hydration, chest ultrasound was reviewed showing left pleural effusion pocket of 9.5 cm, received with left-sided thoracentesis this afternoon. On 11/13/2018 patient seen in follow-up on medical surgical floor. Patient is breathing easier, vital signs are stable, he is afebrile, is status post left- sided thoracentesis yesterday would removal of 1700 mL of fluid, pleural fluid cytology is pending, cultures are pending, Gram stain showed no organisms, final culture is pending. Fluid analysis showed low LDH at 75, 77 of polynuclear WBCs, and fluid protein of 3.1 g, and this combination of exudative and transudative fluid possibly related to underlying infection, and congestive heart failure. After the procedure chest x-ray showed left apical pneumothorax estimated at 20%, clinically patient is asymptomatic, follow-up chest x-ray was obtained today, showing 10% left apical pneumothorax, decreased in size. Rocephin and Zithromax antibiotic coverage, oral prednisone 60 mg continue. Patient is on 2 L of oxygen with a pulse ox of 100%. His labs have been reviewed, showing sodium of 141, potassium 3.4, chloride is 109, CO2 is 23, BUN of 29 creatinine is 1.15 The patient is seen today 11/14/2018 in follow-up on the regular medical floor. He is a bit more awake and alert today as compared to yesterday. Maintaining good O2 saturations in the 90s on room air. No issues overnight. Blood culture reveals no growth. Urine culture reveals no growth. Preliminary pleural fluid reveals no growth thus far. He 141. Potassium 3.6. Creatinine 1.07. Objective - Vital Signs Vital signs: Vital Signs Temp 97.6 F 11/14/18 04:55 Pulse 60 11/14/18 04:55 Resp 20 11/14/18 04:55 BP 147/88 11/14/18 04:55 Pulse Ox 96 11/14/18 04:55 Intake & Output 11/13/18 11/14/18 11/14/18 18:59 06:59 18:59 Output Total 575 400 Balance -575 -400 Output: Urine 575 400 Other: Voiding Method Indwelling Catheter Indwelling Catheter Indwelling Catheter # Voids 0 # Bowel Movements 0 0 0 - Exam GENERAL EXAM: Awake and alert, oriented times one, confused, poor historian, 82-year-old male on room air, comfortable in no apparent distress. HEAD: Normocephalic/atraumatic. EYES: Normal reaction of pupils, equal size. Conjunctiva pink, sclera white. NOSE: Clear with pink turbinates. THROAT: No erythema or exudates. NECK: No masses, no JVD, no thyroid enlargement, no adenopathy. CHEST: No chest wall deformity. Symmetrical expansion. LUNGS: Equal air entry with no crackles, wheeze, rhonchi. Diminished breath sounds bilaterally CVS: Regular rate and rhythm, normal S1 and S2, no gallops, no murmurs, no rubs ABDOMEN: Soft, nontender. No hepatosplenomegaly, normal bowel sounds, no guarding or rigidity. EXTREMITIES: No clubbing, 1-2+ pitting edema, with slight erythema but no significant warmth no cyanosis, 2+ pulses and upper and lower extremities. MUSCULOSKELETAL: Muscle strength and tone normal. SPINE: No scoliosis or deformity SKIN: No rashes CENTRAL NERVOUS SYSTEM: Oriented -1. No focal deficits, tone is normal in all 4 extremities. - Labs CBC & Chem 7: 11/11/18 09:34 11/14/18 07:51 Labs: Abnormal Lab Results - Last 24 Hours (Table) 11/14/18 Range/Units 07:51 BUN 28 H (9-20) mg/dL Microbiology - Last 24 Hours (Table) 11/09/18 22:45 Blood Culture - Preliminary Blood No Growth after 96 hours 11/12/18 13:00 Acid Fast Bacilli Smear - Final Pleural Fluid Acid Fast Bacilli Culture - Preliminary 11/12/18 13:00 Gram Stain - Preliminary Pleural Fluid Body Fluid Culture - Preliminary Assessment and Plan Assessment: Assessment: #1. Acute sepsis related to left lower lung pneumonia, community acquired, with the possibility of parapneumonic effusion/versus pleural effusion of congestive heart failure, pleural fluid analysis shows low LDH, but high fluid protein, and PMNs, combination of transudative and exudative fluid, fluid cultures are pending, cytology is pending #2. Small left apical pneumothorax 20%, following left thoracentesis, improving on today's chest x-ray, clinically patient is asymptomatic #3. Altered mental status, fever, hypotension related to the above #4. Acute kidney injury related to dehydration, and diuretic therapy #5. Previous episode of pleural effusion with thoracentesis, laterality is not known to us, as well as the pleural fluid cytology or culture results #6. History of congestive heart failure diastolic dysfunction #7. History of chronic atrial fibrillation on Eliquis #8. Advanced dementia, Picks disease #9. Hypertension #10. Benign prostatic hypertrophy #11. Lifetime nonsmoker #12. 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 Depression Plan: The patient was seen and evaluated by Dr. Rodriges. He is stable from the pulmonary standpoint. Pleural fluid cultures are revealing no growth thus far. Chest x-ray reviewed. He is cleared for discharge once cleared medically. I, the cosigning physician, performed a history & physical examination of the patient. Lungs sounds diminished in the left lung base. Maintaining good O2 saturations in the 90s on room air. I discussed the assessment and plan of care with my nurse practitioner, Vanessa Griffin. I attest to the above note as dictated by her.
--- NOTE | 2018-11-14 14:23 | P.DS ---
Providers Date of admission: 11/10/18 00:22 Attending physician: Rambo Gee Consults: 11/11/18 10:50 Consult Physician Routine Consulting Provider: Pepe Rodriges Consult Reason/Comments: pneumonia Do you want consulting provider notified?: Yes Primary care physician: Cullen Morel [facility] Course: Patient was admitted with altered mental status, toxic encephalopathy secondary to pneumonia patient was treated for pneumonia patient has a left-sided pleural effusion which has both characteristics of transudate and exudate 2. Patient appears to have basilar dysfunction heart failure as well. Patient will be resumed on his home dose of Lasix as well as lisinopril. Blood pressure is fairly doing well at this time. Basic metabolic profile need to be retested again as an outpatient and patient had a 20% pneumothorax post thoracocentesis couple days ago which has come down to 10% patient is saturating well on room air emanating in the hallways. Patient has a Albright catheter that was removed before discharge patient will be discharged on Ceftin for 4 more days patient is also being treated for COPD we will wean the steroids down. PHYSICAL EXAMINATION: GENERAL: The patient is alert and oriented x3, not in any acute distress. Well developed, well nourished. HEENT: Pupils are round and equally reacting to light. EOMI. No scleral icterus. No conjunctival pallor. Normocephalic, atraumatic. No pharyngeal erythema. No thyromegaly. CARDIOVASCULAR: S1 and S2 present. No murmurs, rubs, or gallops. PULMONARY: Decreased breath sounds in left lower lung spaces ABDOMEN: Soft, nontender, nondistended, normoactive bowel sounds. No palpable organomegaly. MUSCULOSKELETAL: No joint swelling or deformity. EXTREMITIES: No cyanosis, clubbing, or pedal edema. NEUROLOGICAL: Gross neurological examination did not reveal any focal deficits. SKIN: No rashes. Assessment and Plan Assessment: Sepsis: Secondary to left lower lobe pneumonia. Toxic encephalopathy and delirium from sepsis Frontotemporal dementia: Appears to have moderate dementia. Acute renal failure with baseline creatinine of 0.8: Acute renal failure secondary to sepsis and excessive diuretic therapy. Diuretics being held and IV fluids are being held as well. we will continue to monitor. Current creatinine is 1.15. We'll continue to monitor closely for pulmonary edema and heart failure as patient does have history of chronic diastolic dysfunction Hypovolemia: Improved now Chronic heart failure with diastolic dysfunction: With possible mild acute exacerbation Hypotension from sepsis and diuretic therapy: Improved now is being resumed on diuretic therapy Atrial fibrillation, sick sinus syndrome. Beta lu was switched to metoprolol because of hypotension from Coreg. Eliquis being held at this time. Benign prostatic hypertrophy Hypothyroidism Continue current anticoagulation with heparin subq as patient has a pacemaker GI prophylaxis Left-sided pneumothorax status post thoracentesis: Was 20% and has improved to 10%. Plan - Discharge Summary New Discharge Prescriptions: New predniSONE 10 mg PO DAILY #30 tab Cefuroxime Axetil [Ceftin] 500 mg PO BID 4 Days #8 tab Tiotropium Sapphire [Spiriva] 1 cap INHALATION DAILY #1 device Ranitidine HCl [Zantac] 150 mg PO BID #20 tab Continue Aspirin EC [Ecotrin Low Dose] 81 mg PO DAILY Tamsulosin [Flomax] 0.4 mg PO BID Mirtazapine [Remeron] 30 mg PO HS Multivitamins, Thera [Multivitamin (formulary)] 1 tab PO DAILY Vit C/E/Zn/Coppr/Lutein/Zeaxan [Preservision Areds 2 Softgel] 2 cap PO DAILY Potassium Chloride [Klor-Con 20] 20 meq PO DAILY Levothyroxine Sodium [Synthroid] 50 mcg PO MOWETHFRSA Apixaban [Eliquis] 2.5 mg PO BID Furosemide [Lasix] 20 mg PO DAILY Meclizine [Antivert] 12.5 mg PO BID Levothyroxine Sodium [Synthroid] 75 mcg PO SUTU Metolazone [Zaroxolyn] 2.5 mg PO DAILY Carvedilol [Coreg] 6.25 mg PO BID Lisinopril [Zestril] 5 mg PO DAILY Discharge Medication List Aspirin EC [Ecotrin Low Dose] 81 mg PO DAILY 12/23/13 [History] Tamsulosin [Flomax] 0.4 mg PO BID 12/23/13 [History] Mirtazapine [Remeron] 30 mg PO HS 01/14/18 [History] Multivitamins, Thera [Multivitamin (formulary)] 1 tab PO DAILY 01/14/18 [History] Vit C/E/Zn/Coppr/Lutein/Zeaxan [Preservision Areds 2 Softgel] 2 cap PO DAILY 01/14/18 [History] Apixaban [Eliquis] 2.5 mg PO BID 04/30/18 [History] Furosemide [Lasix] 20 mg PO DAILY 04/30/18 [History] Levothyroxine Sodium [Synthroid] 50 mcg PO MOWETHFRSA 04/30/18 [History] Potassium Chloride [Klor-Con 20] 20 meq PO DAILY 04/30/18 [History] Carvedilol [Coreg] 6.25 mg PO BID 08/24/18 [History] Levothyroxine Sodium [Synthroid] 75 mcg PO SUTU 08/24/18 [History] Meclizine [Antivert] 12.5 mg PO BID 08/24/18 [History] Metolazone [Zaroxolyn] 2.5 mg PO DAILY 08/24/18 [History] Lisinopril [Zestril] 5 mg PO DAILY 11/10/18 [History] Cefuroxime Axetil [Ceftin] 500 mg PO BID 4 Days #8 tab 11/14/18 [Rx] Ranitidine HCl [Zantac] 150 mg PO BID #20 tab 11/14/18 [Rx] Tiotropium Sapphire [Spiriva] 1 cap INHALATION DAILY #1 device 11/14/18 [Rx] predniSONE 10 mg PO DAILY #30 tab 11/14/18 [Rx] Follow up Appointment(s)/Referral(s): Judith Jauregui [NON-STAFF] - 1 Week Cullen Morel MD [Primary Care Provider] - 1-2 days
[2018-11-15] MEDS ORDERED: PANTOPRAZOLE 40 MG TABLET PO SCH (07:30)
== END 2018-11-14 14:54 | disposition home or self-care (01) | DRG 871 ==
LOC: EC 21:08 → 4MS4W 11-10 00:22
PROVIDERS: ADMIT Internal Medicine; ATTEND Internal Medicine
PROC: 0W9B3ZX Drainage of Left Pleural Cavity, Percutaneous Approach, Diagnostic (ICD-10-PCS; principal; 2018-11-10)
DX: A41.9 Sepsis, unspecified organism (principal); J18.1 Lobar pneumonia, unspecified organism; G92 Toxic encephalopathy; J90 Pleural effusion, not elsewhere classified; N17.9 Acute kidney failure, unspecified; I50.32 Chronic diastolic (congestive) heart failure; J44.0 Chronic obstructive pulmonary disease with (acute) lower respiratory infection; J93.83 Other pneumothorax; R65.20 Severe sepsis without septic shock; I49.5 Sick sinus syndrome; E03.9 Hypothyroidism, unspecified; F32.9 Major depressive disorder, single episode, unspecified; N40.0 Benign prostatic hyperplasia without lower urinary tract symptoms; I48.2 Chronic atrial fibrillation; G31.01 Pick's disease; E86.1 Hypovolemia; F02.80 Dementia in other diseases classified elsewhere, unspecified severity, without behavioral disturbance, psychotic disturbance, mood disturbance, and anxiety; E86.0 Dehydration; T50.1X5A Adverse effect of loop [high-ceiling] diuretics, initial encounter; I11.0 Hypertensive heart disease with heart failure; Z96.651 Presence of right artificial knee joint; Z95.0 Presence of cardiac pacemaker; Z98.42 Cataract extraction status, left eye; Z98.41 Cataract extraction status, right eye; Z79.82 Long term (current) use of aspirin; Z79.899 Other long term (current) drug therapy; Z79.01 Long term (current) use of anticoagulants; Z79.890 Hormone replacement therapy
CPT/HCPCS: 36415; 51798; 71045; 71046; 71250; 74018; 74019; 76604; 80048; 80053; 81003; 82945; 83605; 83615; 83880; 84157; 85025; 85027; 85610; 85730; 87040; 87070; 87086; 87102; 87116; 87205; 87206; 87252; 87496; 87498; 87502; 87529; 87634; 87798; 88108; 88305; 89050; 93005; 96361; 96365; 96375; 99285

== ENCOUNTER 2019-01-29 17:09 | Inpatient (IN) | payer MEDICARE, BC ==
[2019-01-29] MEDS ORDERED: ACETAMINOPHEN TAB 325 MG TAB PO STA (18:13)
--- NOTE | 2019-01-29 18:16 | ED ---
Fever HPI - General Source: EMS Mode of arrival: EMS Limitations: altered mental status <Kita Williamson - Last Filed: 01/29/19 23:30> <Fouzia Mir - Last Filed: 02/02/19 16:15> - General Chief Complaint: Fever Stated Complaint: Fever Time Seen by Provider: 01/29/19 18:00 - History of Present Illness Initial Comments: 83-year-old male patient with past medical history significant for atrial fibrillation, heart failure, dementia, hypertension, and hypothyroid presents to the emergency department today for evaluation of altered mental status. states that they went to the store and upon arriving home patient was too weak to get out of the car. States that he was slower to respond and was having in creased memory difficulties. She states that he has had symptoms similar to this in the past, specifically October when he was admitted for pneumonia and sepsis. Patient states that he does have a chronic cough. States there is no change to this cough. Patient denies any pain. Denies sore throat, chest pain, or abdominal pain. He is slow to respond to questions and difficult to obtain history from, most history comes from . (Kita Williamson) - Related Data Home Medications Medication Instructions Recorded Confirmed Aspirin EC [Ecotrin Low Dose] 81 mg PO HS 12/23/13 01/29/19 Tamsulosin [Flomax] 0.4 mg PO BID 12/23/13 01/29/19 Mirtazapine [Remeron] 30 mg PO HS 01/14/18 01/29/19 Multivitamins, Thera [Multivitamin 1 tab PO DAILY 01/14/18 01/29/19 (formulary)] Vit C/E/Zn/Coppr/Lutein/Zeaxan 1 cap PO DAILY 01/14/18 01/29/19 [Preservision Areds 2 Softgel] Apixaban [Eliquis] 2.5 mg PO BID 04/30/18 01/29/19 Furosemide [Lasix] 20 mg PO DAILY 04/30/18 01/29/19 Levothyroxine Sodium [Synthroid] 50 mcg PO MOWETHFRSA 04/30/18 01/29/19 Potassium Chloride [Klor-Con 20] 20 meq PO DAILY 04/30/18 01/29/19 Carvedilol [Coreg] 6.25 mg PO BID 08/24/18 01/29/19 Levothyroxine Sodium [Synthroid] 75 mcg PO SUTU 08/24/18 01/29/19 Meclizine [Antivert] 12.5 mg PO BID 08/24/18 01/29/19 Metolazone [Zaroxolyn] 1.25 mg PO DAILY 08/24/18 01/29/19 Lisinopril [Zestril] 5 mg PO HS 11/10/18 01/29/19 Calcium Polycarbophil [Fiber-Lax] 2,500 mg PO DAILY 01/29/19 01/29/19 Allergies Allergy/AdvReac Type Severity Reaction Status Date / Time No Known Allergies Allergy Verified 01/29/19 19:32 Review of Systems ROS Other: All systems not noted in ROS Statement are negative. <Kita Williamson - Last Filed: 01/29/19 23:30> ROS Other: All systems not noted in ROS Statement are negative. <Fouzia Mir - Last Filed: 02/02/19 16:15> ROS Statement: Those systems with pertinent positive or pertinent negative responses have been documented in the HPI. 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 History of Any Multi-Drug Resistant Organisms: None Reported Past Surgical History: Appendectomy, Breast Surgery, Joint Replacement, Pacemaker, Prostate Surgery Additional Past Surgical History / Comment(s): BENIGN TUMOR REMOVED RT BREAST, rt knee replacement, cardioversion, DEJAN CATARACTS, thorascentesis Past Anesthesia/Blood Transfusion Reactions: No Reported Reaction Type of Cardiac Device: Permanent Pacemaker Device Placement Date:: unknown Past Psychological History: Depression Smoking Status: Never smoker Past Alcohol Use History: Rare Past Drug Use History: None Reported - Past Family History Mother Family Medical History: No Reported History <Kita Williamson - Last Filed: 01/29/19 23:30> General Exam Limitations: altered mental status General appearance: alert, in no apparent distress, other (Physical well- developed, well-nourished elderly male patient in no acute distress. Vital signs upon presentation are temperature 101.3F, pulse 70, respirations 18, blood pressure 125/85, pulse ox 100% on room air.) Eye exam: Present: normal appearance, PERRL, EOMI. Absent: scleral icterus, conjunctival injection, periorbital swelling ENT exam: Present: normal exam, normal oropharynx, mucous membranes moist Respiratory exam: Present: normal lung sounds bilaterally. Absent: respiratory distress, wheezes, rales, rhonchi, stridor Cardiovascular Exam: Present: regular rate, normal rhythm, normal heart sounds. Absent: systolic murmur, diastolic murmur, rubs, gallop, clicks GI/Abdominal exam: Present: soft, normal bowel sounds. Absent: distended, tenderness, guarding, rebound, rigid Neurological exam: Present: alert, CN II-XII intact, other (Response slowly to questions. Strength in the bilateral arms is 4/5, strength in the bilateral le gs is 3/5.). Absent: oriented X3 (Oriented 2) Psychiatric exam: Present: normal affect, normal mood Skin exam: Present: warm, dry, intact, normal color. Absent: rash <Kita Williamson - Last Filed: 01/29/19 23:30> Course Vital Signs 01/29/19 01/29/19 01/29/19 17:12 18:57 19:13 Temperature 101.3 F H 101 F H Pulse Rate 70 64 65 Respiratory 18 18 18 Rate Blood Pressure 125/85 113/64 127/77 O2 Sat by Pulse 100 98 98 Oximetry 01/29/19 01/29/19 01/29/19 20:23 21:32 22:05 Temperature 100.2 F H 99.9 F H Pulse Rate 67 60 Respiratory 18 22 Rate Blood Pressure 103/68 94/55 O2 Sat by Pulse 97 97 96 Oximetry 01/29/19 22:55 Temperature 100.2 F H Pulse Rate 63 Respiratory 20 Rate Blood Pressure 97/77 O2 Sat by Pulse 97 Oximetry Medical Decision Making - Lab Data Result diagrams: 01/29/19 18:21 01/29/19 18:21 - EKG Data -: EKG Interpreted by Ia - Radiology Data Radiology results: report reviewed, image reviewed <Kita Williamson - Last Filed: 01/29/19 23:30> - Lab Data Result diagrams: 02/02/19 07:41 02/02/19 07:41 <Fouzia Mir - Last Filed: 02/02/19 16:15> - Medical Decision Making 83-year-old male patient is brought to the emergency department today for evaluation of fever, weakness, and acute mental status change. Physical examination is unremarkable. He is neurologically intact with no focal defic its. Labs reviewed and did reveal mildly elevated white blood cell count, potassium 5.2, BUN 25. Chest x-ray showed left pleural effusion with consolidation noted. Patient does have a cough. We will start antibiotics for possible pneumonia, he'll be covered for HCAP to admission in October. CT brain was added and is unremarkable. He'll be admitted to [facility]. [facility] is accepting. Did discuss findings, results, plan with the patient and his , they are agreeable. (Kita Williamson) I was available for consultation in the emergency department. The history and physical exam were done by the midlevel provider. I was consulted for this patients care. I reviewed the case with the midlevel provider and based on their presentation of the patient, I agree with the assessment, medical decision making and plan of care as documented. I evaluated the patient myself and agreed with hospital admission. Chart was dictated using [email or web address] dictation software. Attempts were made to correct any dictation errors however some typographical errors may persist. (Fouzia Mir) - Lab Data Lab Results 01/29/19 01/29/19 01/29/19 Range/Units 18:21 18:21 18:21 WBC 11.8 H (3.8-10.6) k/uL RBC 4.13 L (4.30-5.90) m/uL Hgb 12.8 L (13.0-17.5) gm/dL Hct 39.1 (39.0-53.0) % MCV 94.6 (80.0-100.0) fL MCH 31.0 (25.0-35.0) pg MCHC 32.8 (31.0-37.0) g/dL RDW 15.3 (11.5-15.5) % Plt Count 167 (150-450) k/uL Neutrophils % 88 % Lymphocytes % 2 % Monocytes % 6 % Eosinophils % 1 % Basophils % 1 % Neutrophils # 10.4 H (1.3-7.7) k/uL Lymphocytes # 0.3 L (1.0-4.8) k/uL Monocytes # 0.7 (0-1.0) k/uL Eosinophils # 0.1 (0-0.7) k/uL Basophils # 0.2 (0-0.2) k/uL PT (9.0-12.0) sec INR (<1.2) APTT (22.0-30.0) sec Sodium 137 (137-145) mmol/L Potassium 5.2 H (3.5-5.1) mmol/L Chloride 103 (98-107) mmol/L Carbon Dioxide 24 (22-30) mmol/L Anion Gap 10 mmol/L BUN 25 H (9-20) mg/dL Creatinine 1.15 (0.66-1.25) mg/dL Est GFR (CKD-EPI)AfAm 68 (>60 ml/min/1.73 sqM) Est GFR (CKD-EPI)NonAf 59 (>60 ml/min/1.73 sqM) Glucose 105 H (74-99) mg/dL Plasma Lactic Acid Dony 1.3 (0.7-2.0) mmol/L Calcium 9.9 (8.4-10.2) mg/dL Total Bilirubin 1.7 H (0.2-1.3) mg/dL AST 45 (17-59) U/L ALT 17 L (21-72) U/L Alkaline Phosphatase 104 (38-126) U/L Total Protein 8.0 (6.3-8.2) g/dL Albumin 4.2 (3.5-5.0) g/dL Urine Color Urine Appearance (Clear) Urine pH (5.0-8.0) Ur Specific [place] (1.001-1.035) Urine Protein (Negative) Urine Glucose (UA) (Negative) Urine Ketones (Negative) Urine Blood (Negative) Urine Nitrite (Negative) Urine Bilirubin (Negative) Urine Urobilinogen (<2.0) mg/dL Ur Leukocyte Esterase (Negative) Influenza Type A RNA (Not Detectd) Influenza Type B (PCR) (Not Detectd) 01/29/19 01/29/19 01/29/19 Range/Units 18:21 18:56 20:22 WBC (3.8-10.6) k/uL RBC (4.30-5.90) m/uL Hgb (13.0-17.5) gm/dL Hct (39.0-53.0) % MCV (80.0-100.0) fL MCH (25.0-35.0) pg MCHC (31.0-37.0) g/dL RDW (11.5-15.5) % Plt Count (150-450) k/uL Neutrophils % % Lymphocytes % % Monocytes % % Eosinophils % % Basophils % % Neutrophils # (1.3-7.7) k/uL Lymphocytes # (1.0-4.8) k/uL Monocytes # (0-1.0) k/uL Eosinophils # (0-0.7) k/uL Basophils # (0-0.2) k/uL PT 11.4 (9.0-12.0) sec INR 1.1 (<1.2) APTT 23.0 (22.0-30.0) sec Sodium (137-145) mmol/L Potassium (3.5-5.1) mmol/L Chloride (98-107) mmol/L Carbon Dioxide (22-30) mmol/L Anion Gap mmol/L BUN (9-20) mg/dL Creatinine (0.66-1.25) mg/dL Est GFR (CKD-EPI)AfAm (>60 ml/min/1.73 sqM) Est GFR (CKD-EPI)NonAf (>60 ml/min/1.73 sqM) Glucose (74-99) mg/dL Plasma Lactic Acid Dony (0.7-2.0) mmol/L Calcium (8.4-10.2) mg/dL Total Bilirubin (0.2-1.3) mg/dL AST (17-59) U/L ALT (21-72) U/L Alkaline Phosphatase (38-126) U/L Total Protein (6.3-8.2) g/dL Albumin (3.5-5.0) g/dL Urine Color Yellow Urine Appearance Clear (Clear) Urine pH 5.0 (5.0-8.0) Ur Specific [place] 1.015 (1.001-1.035) Urine Protein Negative (Negative) Urine Glucose (UA) Negative (Negative) Urine Ketones Negative (Negative) Urine Blood Negative (Negative) Urine Nitrite Negative (Negative) Urine Bilirubin Negative (Negative) Urine Urobilinogen <2.0 (<2.0) mg/dL Ur Leukocyte Esterase Negative (Negative) Influenza Type A RNA Not Detected (Not Detectd) Influenza Type B (PCR) Not Detected (Not Detectd) - EKG Data EKG Comments: EKG obtained at 1843 shows sinus rhythm with a ventricular rate of 63, QRS du ration 64, QT 394, QTC 403. No evidence of ST elevation or depression. There are some inverted T waves which are consistent with previous EKG in October. (Kita Williamson) - Radiology Data CT brain without contrast is obtained. Report was reviewed in its entirety. Impression by Dr. Warner shows cerebral atrophy. No acute intracranial abnormality. Two-view x-ray of the chest is obtained. Report was reviewed in its entirety. Impression by Dr. Warner shows left pleural effusion and left pulmonary consolidation increase lightly compared to last exam. No heart failure seen. (Kita Williamson) Disposition Decision to Admit Reason: Admit from EC Decision Date: 01/29/19 Decision Time: 21:37 <Kita Williamson - Last Filed: 01/29/19 23:30> <Fouzia Mir - Last Filed: 02/02/19 16:15> Clinical Impression: Pneumonia, Altered mental status, Pleural effusion Disposition: ADMITTED IP TO THIS HOSP Condition: Serious
[2019-01-29] MEDS: SODIUM CHLORIDE 0.9% 500 ML 500 ML IV SCH ×2 (18:35→18:36)
[2019-01-29 18:53] LABS: Basophils # (A) 0.2 k/uL (0-0.2); Basophils % (A) 1 %; Eosinophils # (A) 0.1 k/uL (0-0.7); Eosinophils % (A) 1 %; HCT 39.1 % (39.0-53.0); HGB 12.8 gm/dL (13.0-17.5); Lymphocytes # (A) 0.3 k/uL (1.0-4.8); Lymphocytes % (A) 2 %; MCHC 32.8 g/dL (31.0-37.0); MCV 94.6 fL (80.0-100.0); Mean Platelet Volume 7.9; Monocytes # (A) 0.7 k/uL (0-1.0); Monocytes % (A) 6 %; Neutrophils # (A) 10.4 k/uL (1.3-7.7); Neutrophils % (A) 88 %; Platelet Count 167 k/uL (150-450); RBC 4.13 m/uL (4.30-5.90); RDW 15.3 % (11.5-15.5); WBC 11.8 k/uL (3.8-10.6)
--- NOTE | 2019-01-29 18:58 | XR ---
EXAMINATION TYPE: XR chest 2V DATE OF EXAM: 01/29/2019 COMPARISON: 11/14/2018 HISTORY: Fever TECHNIQUE: Frontal and lateral views of the chest are obtained. FINDINGS: There is large left pleural effusion. There is left lower lobe airspace consolidation. Hea rt is enlarged. There is no heart failure. There is left axillary pacemaker. Heart appears shifted sl ightly to the right side. There are old right-sided healed rib fractures. IMPRESSION: Left pleural effusion and left pulmonary consolidation increased slightly compared to la st exam. No heart failure seen.
[2019-01-29 19:00] LABS: INR 1.1 (<1.2); Prothrombin Time 11.4 sec (9.0-12.0)
[2019-01-29 19:05] LABS: Albumin 4.2 g/dL (3.5-5.0); Calcium 9.9 mg/dL (8.4-10.2); Total Bilirubin 1.7 mg/dL (0.2-1.3)
[2019-01-29 19:06] LABS: Potassium 5.2 mmol/L (3.5-5.1)
[2019-01-29 20:48] LABS: Appearance,Urine Clear (Clear); Bilirubin,Urine Negative (Negative); Blood,Urine Negative (Negative); Color,Urine Yellow; Glucose,Urine (UA) Negative (Negative); Ketones,Urine Negative (Negative); Leukocyte Esterase,Urine Negative (Negative); Nitrite,Urine Negative (Negative); Protein,Urine Negative (Negative); Specific Gravity,Urine 1.015 (1.001-1.035); Urobilinogen,Urine <2.0 mg/dL (<2.0)
[2019-01-29] MEDS ORDERED: LEVOFLOXACIN 750MG-D5W PMX 750 MG in DEXTROSE/WATER 1 150ML.BAG IVPB STA (21:30)
[2019-01-29] MEDS ORDERED: PIPERACILLIN-TAZOBACTAM 3.375 GM in SODIUM CHLORIDE 0.9% 100 ML IVPB STA (21:30)
[2019-01-29] MEDS ORDERED: PNEUMONIA PROTOCOL UTILIZED 1 EACH MISC PO PRN (21:30)
[2019-01-29] MEDS ORDERED: PIPERACILLIN-TAZOBACTAM 3.375 GM in SODIUM CHLORIDE 0.9% 100 ML IVPB ONE (21:37)
[2019-01-29] MEDS ORDERED: LEVOFLOXACIN 750MG-D5W PMX 750 MG in DEXTROSE/WATER 1 150ML.BAG IVPB ONE (21:38)
--- NOTE | 2019-01-29 21:42 | CT ---
EXAMINATION TYPE: CT brain wo con DATE OF EXAM: 01/29/2019 COMPARISON: None HISTORY: Altered mental status. CT DLP: 1099.4 mGycm Automated exposure control for dose reduction was used. FINDINGS: Multiple axial sections were obtained of the brain without contrast. There is cerebral cortical atrop hy. There is no mass effect nor midline shift. There is no sign of intracranial hemorrhage. The mihir rium is intact. IMPRESSION: CEREBRAL ATROPHY. NO ACUTE INTRACRANIAL ABNORMALITY.
[2019-01-30] MEDS: PIPERACILLIN-TAZOBACTAM 3.375 GM in SODIUM CHLORIDE 0.9% 100 ML IVPB SCH ×3 (05:58→22:09)
--- NOTE | 2019-01-30 07:00 | XR ---
EXAMINATION TYPE: XR chest 2V DATE OF EXAM: 01/30/2019 HISTORY: pneumonia. REFERENCE: Previous study dated 01/29/2019. FINDINGS: There is a unipolar pacemaker place on the left. The heart is enlarged. There continues be left basilar airspace disease and there is developing right basilar airspace disease. There are small, bilateral effusions, greater on the left than the right. Overall aeration may have improved. IMPRESSION: SLIGHT IMPROVEMENT IN THE AERATION AT THE LEFT LUNG BASE.
[2019-01-30] MEDS ORDERED: QUEtiapine 25 MG TAB PO PRN (10:09)
--- NOTE | 2019-01-30 10:11 | P.HPIM ---
History of Present Illness patient is a pleasant 83-year-old gentleman with known history of found to have dementia came in with complaints of altered mental status worsening confusion along with fever and found to have infiltrate in the left lower lobe. Patient had left lower lobe pneumonia and pleural effusion in the past. That was a few months ago by the but now his infiltrate have gotten better. It appears to have pneumonia now patient was started on Zosyn and levofloxacin my suspicion is low for atypical pneumonia levofloxacin is not necessary considering his confusion is not a good idea to continue on levofloxacin reflux and will be this can you. Patient is hypotensive as well this can you lisinopril although Coreg will be continued as patient does have history of atrial fibrillation. His ejection fraction is not known and the there is no evidence of congestive heart failure now patient is hypovolemic patient will be continued on IV fluids. Review of Systems patient is confused alert oriented 1 unable to provide me review of systems. 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, senior care memory loss History of Any Multi-Drug Resistant Organisms: None Reported Past Surgical History: Appendectomy, Breast Surgery, Joint Replacement, Pacemaker, Prostate Surgery Additional Past Surgical History / Comment(s): BENIGN TUMOR REMOVED RT BREAST, rt knee replacement, cardioversion, DEJAN CATARACTS, thorascentesis Past Anesthesia/Blood Transfusion Reactions: No Reported Reaction Type of Cardiac Device: Permanent Pacemaker Device Placement Date:: unknown Past Psychological History: Depression Smoking Status: Never smoker Past Alcohol Use History: Rare Past Drug Use History: None Reported - Past Family History Mother Family Medical History: No Reported History Father Family Medical History: Dementia, Myocardial Infarction (HI) Medications and Allergies Home Medications Medication Instructions Recorded Confirmed Type Aspirin EC [Ecotrin Low Dose] 81 mg PO HS 12/23/13 01/29/19 History Tamsulosin [Flomax] 0.4 mg PO BID 12/23/13 01/29/19 History Mirtazapine [Remeron] 30 mg PO HS 01/14/18 01/29/19 History Multivitamins, Thera [Multivitamin 1 tab PO DAILY 01/14/18 01/29/19 History (formulary)] Vit C/E/Zn/Coppr/Lutein/Zeaxan 1 cap PO DAILY 01/14/18 01/29/19 History [Preservision Areds 2 Softgel] Apixaban [Eliquis] 2.5 mg PO BID 04/30/18 01/29/19 History Furosemide [Lasix] 20 mg PO DAILY 04/30/18 01/29/19 History Levothyroxine Sodium [Synthroid] 50 mcg PO MOWETHFRSA 04/30/18 01/29/19 History Potassium Chloride [Klor-Con 20] 20 meq PO DAILY 04/30/18 01/29/19 History Carvedilol [Coreg] 6.25 mg PO BID 08/24/18 01/29/19 History Levothyroxine Sodium [Synthroid] 75 mcg PO SUTU 08/24/18 01/29/19 History Meclizine [Antivert] 12.5 mg PO BID 08/24/18 01/29/19 History Metolazone [Zaroxolyn] 1.25 mg PO DAILY 08/24/18 01/29/19 History Lisinopril [Zestril] 5 mg PO HS 11/10/18 01/29/19 History Calcium Polycarbophil [Fiber-Lax] 2,500 mg PO DAILY 01/29/19 01/29/19 History Allergies Allergy/AdvReac Type Severity Reaction Status Date / Time No Known Allergies Allergy Verified 01/29/19 19:32 Physical Exam Vitals: Vital Signs Temp Pulse Pulse Resp BP BP Pulse Ox 01/30/19 04:55 99.7 F H 61 18 128/71 92 L 01/29/19 23:26 98.3 F 64 18 114/56 96 01/29/19 22:55 100.2 F H 63 20 97/77 97 01/29/19 22:05 99.9 F H 60 22 94/55 96 01/29/19 21:32 97 01/29/19 20:23 100.2 F H 67 18 103/68 97 01/29/19 19:13 101 F H 65 18 127/77 98 01/29/19 18:57 64 18 113/64 98 01/29/19 17:12 101.3 F H 70 18 125/85 100 Intake and Output 01/29/19 01/30/19 01/30/19 22:59 06:59 14:59 Output Total 250 Balance -250 Output: Urine 250 Straight 250 Other: Voiding Method Incontinent Weight 83.915 kg PHYSICAL EXAMINATION: GENERAL: The patient is alert and oriented x1, not in any acute distress. Well developed, well nourished. HEENT: Pupils are round and equally reacting to light. EOMI. No scleral icterus. No conjunctival pallor. Normocephalic, atraumatic. No pharyngeal erythema. No thyromegaly. CARDIOVASCULAR: S1 and S2 present. No murmurs, rubs, or gallops. PULMONARY: Chest is clear to auscultation, no wheezing or crackles. 7 is limited because he is not able to follow commands ABDOMEN: Soft, nontender, nondistended, normoactive bowel sounds. No palpable organomegaly. MUSCULOSKELETAL: No joint swelling or deformity. EXTREMITIES: No cyanosis, clubbing, or pedal edema. NEUROLOGICAL: unable to assess SKIN: No rashes. Results CBC & Chem 7: 01/29/19 18:21 01/29/19 18:21 Labs: Abnormal Lab Results - Last 24 Hours (Table) 01/29/19 01/29/19 Range/Units 18:21 18:21 WBC 11.8 H (3.8-10.6) k/uL RBC 4.13 L (4.30-5.90) m/uL Hgb 12.8 L (13.0-17.5) gm/dL Neutrophils # 10.4 H (1.3-7.7) k/uL Lymphocytes # 0.3 L (1.0-4.8) k/uL Potassium 5.2 H (3.5-5.1) mmol/L BUN 25 H (9-20) mg/dL Glucose 105 H (74-99) mg/dL Total Bilirubin 1.7 H (0.2-1.3) mg/dL ALT 17 L (21-72) U/L Microbiology - Last 24 Hours (Table) 01/29/19 20:22 Urine Culture - Preliminary Urine,Catheterized Thrombosis Risk Factor Assmnt - Choose All That Apply Each Factor Represents 1 point: Obesity (BMI >25) Each Risk Factor Represents 3 Points: Age 75 years or older Thrombosis Risk Factor Assessment Total Risk Factor Score: 4 Thrombosis Risk Factor Assessment Level: Moderate Risk Assessment and Plan Plan: -sepsis secondary to left lower lobe pneumonia: Patient will continue on Zosyn reflux and will be discontinued because of confusion reflux and is known to increase altered mental status and the my suspicion is low for atypical pneumonia. Sputum cultures and blood cultures were obtained --Toxic encephalopathy from infection antibiotics and IV fluids as mentioned above -Acute renal failure IV fluids at 75 mL/h -Atrial fibrillation presently rate controlled continue with anticoagulation and rate control medications -Hypertension hold off on lisinopril and diuretic therapy at this time patient is hypervolemic at this time. 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
[2019-01-30] MEDS: LEVOTHYROXINE 50 MCG TAB PO SCH (12:50)
[2019-01-30] MEDS: SODIUM CHLORIDE 0.9% 1,000 ML IV SCH ×2 (18:04→22:12)
[2019-01-30] MEDS: CARVEDILOL 6.25 MG TAB PO SCH (18:05)
[2019-01-30] MEDS: FAMOTIDINE 20 MG TAB PO SCH (18:05)
[2019-01-30] MEDS ORDERED: FAMOTIDINE 20 MG TAB PO SCH (21:00)
[2019-01-30] MEDS: TAMSULOSIN 0.4 MG CAP.ER.24H PO SCH (21:40)
[2019-01-30] MEDS: ASPIRIN 81 MG PO SCH (21:40)
[2019-01-30] MEDS: APIXABAN 2.5 MG TABLET PO SCH (21:40)
[2019-01-30] MEDS ORDERED: LEVOFLOXACIN 750MG-D5W PMX 750 MG in DEXTROSE/WATER 1 150ML.BAG IVPB SCH (23:00)
[2019-01-31] MEDS: LEVOTHYROXINE 75 MCG TAB PO SCH (05:50)
[2019-01-31] MEDS: PIPERACILLIN-TAZOBACTAM 3.375 GM in SODIUM CHLORIDE 0.9% 100 ML IVPB SCH ×3 (05:50→21:55)
[2019-01-31 07:11] LABS: HCT 34.1 % (39.0-53.0); HGB 10.3 gm/dL (13.0-17.5); MCH 29.6 pg (25.0-35.0); MCHC 30.1 g/dL (31.0-37.0); MCV 98.1 fL (80.0-100.0); Mean Platelet Volume 8.6; Platelet Count 139 k/uL (150-450); RBC 3.47 m/uL (4.30-5.90); RDW 15.1 % (11.5-15.5)
[2019-01-31 07:27] LABS: Calcium 9.3 mg/dL (8.4-10.2); Potassium 3.8 mmol/L (3.5-5.1)
[2019-01-31] MEDS: FAMOTIDINE 20 MG TAB PO SCH (08:31)
[2019-01-31] MEDS: CALCIUM POLYCARBOPHIL 625 MG TAB PO SCH (08:31)
[2019-01-31] MEDS: TAMSULOSIN 0.4 MG CAP.ER.24H PO SCH ×2 (08:31→20:50)
[2019-01-31] MEDS: CARVEDILOL 6.25 MG TAB PO SCH ×2 (08:31→18:13)
[2019-01-31] MEDS: APIXABAN 2.5 MG TABLET PO SCH ×2 (08:31→20:50)
--- NOTE | 2019-01-31 13:36 | P.PN ---
Subjective 83-year-old pleasant male was admitted secondary to altered mental status from a left lower lobe pneumonia. Patient is feeling much better today respiratory- vora as well as mental status vora patient is at his baseline which is alert oriented 2-3. As per the patient is not requiring any help and will not require subacute rehabilitation and physical therapy at home. Patient probably can be discharged on oral antibiotics tomorrow. Constitutional: Denied any fatigue denied any fever. Cardio vascular: denied any chest pain, palpitations Gastrointestinal denied any nausea vomiting Pulmonary: Denied any shortness of breath cough Neurologic denied any new focal deficits All inpatient medications were reviewed and appropriate changes in these medications as dictated in the interval history and assessment and plan. Objective - Vital Signs Vital signs: Vital Signs Temp 98.4 F 01/31/19 11:38 Pulse 60 01/31/19 11:38 Resp 17 01/31/19 11:38 BP 117/65 01/31/19 11:38 Pulse Ox 98 01/31/19 11:38 Intake & Output 01/30/19 01/31/19 01/31/19 18:59 06:59 18:59 Intake Total 775 700 Balance 775 700 Intake: Intake, IV Titration 175 700 Amount Piperacillin-Tazobactam 3 100 100 .375 gm In Sodium Chloride 0.9% 100 ml @ 25 mls/hr IVPB Q8H [facility]KA Rx#: [id number] Sodium Chloride 0.9% 1, 75 600 000 ml @ 75 mls/hr IV . [id number] [facility]KA Rx#:[id number] Oral 600 Other: Voiding Method Toilet Toilet Toilet Incontinent Incontinent Incontinent # Voids 1 1 - Exam PHYSICAL EXAMINATION: GENERAL: The patient is alert and oriented x2-3, not in any acute distress. Well developed, well nourished. HEENT: Pupils are round and equally reacting to light. EOMI. No scleral icterus. No conjunctival pallor. Normocephalic, atraumatic. No pharyngeal erythema. No thyromegaly. CARDIOVASCULAR: S1 and S2 present. No murmurs, rubs, or gallops. PULMONARY: No wheezing or crackles were appreciated exam is limited as patient doesn't take ABDOMEN: Soft, nontender, nondistended, normoactive bowel sounds. No palpable organomegaly. MUSCULOSKELETAL: No joint swelling or deformity. EXTREMITIES: No cyanosis, clubbing, or pedal edema. NEUROLOGICAL: Gross neurological examination did not reveal any focal deficits. SKIN: No rashes. - Labs CBC & Chem 7: 01/31/19 06:10 01/31/19 06:10 Labs: Abnormal Lab Results - Last 24 Hours (Table) 01/31/19 01/31/19 Range/Units 06:10 06:10 RBC 3.47 L (4.30-5.90) m/uL Hgb 10.3 L (13.0-17.5) gm/dL Hct 34.1 L (39.0-53.0) % MCHC 30.1 L (31.0-37.0) g/dL Plt Count 139 L (150-450) k/uL BUN 35 H (9-20) mg/dL Creatinine 1.79 H (0.66-1.25) mg/dL Microbiology - Last 24 Hours (Table) 01/29/19 20:22 Urine Culture - Preliminary Urine,Catheterized 01/29/19 18:21 Blood Culture - Preliminary Blood No Growth after 24 hours Assessment and Plan Plan: -sepsis secondary to left lower lobe pneumonia: Patient will continue on Zosyn . Sputum cultures and blood cultures were obtained --Toxic encephalopathy from infection antibiotics and IV fluids as mentioned above -Acute renal failure IV fluids at 75 mL/h, patient's creatinine went up to 1.7 and continue with IV fluids and reassess her kidney function again tomorrow -Atrial fibrillation presently rate controlled continue with anticoagulation and rate control medications -Hypertension hold off on lisinopril and diuretic therapy at this time patient hypovolemic at this time. 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
[2019-01-31] MEDS: ASPIRIN 81 MG PO SCH (20:50)
[2019-01-31] MEDS: SODIUM CHLORIDE 0.9% 1,000 ML IV SCH (21:56)
[2019-02-01] MEDS: LEVOTHYROXINE 50 MCG TAB PO SCH (05:33)
[2019-02-01] MEDS: PIPERACILLIN-TAZOBACTAM 3.375 GM in SODIUM CHLORIDE 0.9% 100 ML IVPB SCH ×3 (05:33→22:11)
[2019-02-01 07:40] LABS: HGB 11.9 gm/dL (13.0-17.5); MCH 31.5 pg (25.0-35.0); MCHC 32.3 g/dL (31.0-37.0); MCV 97.6 fL (80.0-100.0); Mean Platelet Volume 8.2; Platelet Count 145 k/uL (150-450); RBC 3.79 m/uL (4.30-5.90); WBC 6.7 k/uL (3.8-10.6)
[2019-02-01 08:00] LABS: Calcium 9.4 mg/dL (8.4-10.2); Potassium 3.6 mmol/L (3.5-5.1)
[2019-02-01] MEDS: CARVEDILOL 6.25 MG TAB PO SCH ×2 (08:46→17:17)
[2019-02-01] MEDS: FAMOTIDINE 20 MG TAB PO SCH (08:46)
[2019-02-01] MEDS: TAMSULOSIN 0.4 MG CAP.ER.24H PO SCH ×2 (08:46→20:02)
[2019-02-01] MEDS: CALCIUM POLYCARBOPHIL 625 MG TAB PO SCH (08:46)
[2019-02-01] MEDS: APIXABAN 2.5 MG TABLET PO SCH ×2 (08:46→20:02)
[2019-02-01] MEDS: SODIUM CHLORIDE 0.9% 1,000 ML IV SCH ×3 (08:47→22:11)
[2019-02-01] MEDS ORDERED: ANIDULAFUNGIN 200 MG in SODIUM CHLORIDE 0.9% 200 ML IVPB ONE ×2 (08:49→10:00)
--- NOTE | 2019-02-01 10:42 | CDI ---
Documentation Clarification Form Date: 02/01/2019 10:10:57 AM From: Marjorie Martinez RN, CCDS Admit Date: 01/29/2019 10:33:00 PM Patient Name: Kvng Taveras Visit Number: [id number] ATTENTION: The Clinical Documentation Specialists (CDI) and [facility] Coding Staff appreciate your assistance in clarifying documentation. Please respond to the clarification below the line at the bottom and electronically sign. The CDI & [facility] Coding staff will review the response and follow-up if needed. Please note: Queries are made part of the Legal Health Record. If you have any questions, please contact the author of this message via ITS. Dr. Andre Atrial Fibrillation is documented in the PMH and the H&P and requires further clarification, History/Risk Factors: Atrial Fib, chronic systolic CHF, HTN, Hypothyroid Clinical Indicators: 01/30 H&P: "Atrial fibrillation presently rate controlled, continue with anticoagulation and rate control medications." EKG/telemetry: Atrial Fib Treatment: ASA 81 mg po HS MALKA Eliquis 2.5 mg Po BID Coreg 6.25 mg PO In your professional opinion, can you please clarify the type of Atrial Fibrillation, if known? Chronic/Permanent Paroxysmal Persistent Other, please specify Unable to determine (Last Revision: July 2017) Chronic/Permanent MTDD
--- NOTE | 2019-02-01 10:58 | CDI ---
Documentation Clarification Form Date: 02/01/2019 10:42:32 AM From: Marjorie Martinez RN, CCDS Admit Date: 01/29/2019 10:33:00 PM Patient Name: Kvng Taveras Visit Number: [id number] ATTENTION: The Clinical Documentation Specialists (CDI) and [facility] Coding Staff appreciate your assistance in clarifying documentation. Please respond to the clarification below the line at the bottom and electronically sign. The CDI & [facility] Coding staff will review the response and follow-up if needed. Please note: Queries are made part of the Legal Health Record. If you have any questions, please contact the author of this message via ITS. Dr. Andre Pneumonia was documented in your notes and requires further specificity History/Risk Factors: Dementia, CHF Clinical Indicators: 01/31 attending Progress Note: "83-year-old pleasant male was admitted secondary to altered mental status from left lower lobe pneumonia. Plan: -sepsis secondary to left lower lobe pneumonia: Patient will continue on Zosyn." Vital signs: Temp 101.3, hr 70, rr 18, b/p 125/85, spo2 100% RA WBC: 11.8/8/6.7 Left shift: 10.4 CXR: The heart is enlarged.There continues be left basilar airspace disease and there is developing right basilar airspace disease. There are small, bilateral effusions, greater on the left than the right. Overall aeration may have improved." 01/31 Attending Lung/Breathing assessment: "No wheezing or crackles were appreciated exam is limited as patient doesn't take." Treatment: Antibiotics: Anidulafungin 100 mg IVPB QD, Levaquin 750 mg IVPB q 24 hrs, Zosyn 3.375 gm IVPB Q 8 hrs O2: Room air Breathing Tx: none ordered In order to capture the severity of condition, please clarify if the condition signifies and you are treating for: Aspiration Pneumonia, identify if: Due to solids or liquids Bacterial Pneumonia, specify causal organism (if known) Gram Negative Pneumonia Due to Strep Due to Staph Due to E. coli Other bacteria (please specify) Other, please specify Unable to determine (Last Revision: July 2017) possibly gram negative MTDD
--- NOTE | 2019-02-01 16:25 | PN ---
PROGRESS NOTE DATE OF SERVICE: 02/01/2019 This 83-year-old gentleman who was admitted with sepsis secondary to left lower lobe pneumonia was also found to have fungemia. Nara parapsilosis was grown from the blood cultures. Creatinine is 1.59. The patient continues to be confused at this time. Past medical history reviewed. Review of systems could not be taken. CURRENT MEDICATIONS: Reviewed. They include: 1. Anidulafungin. 2. Eliquis 2.5 mg b.i.d. 3. Aspirin 81 mg at bedtime. 4. FiberCon 2.5 mg daily. 5. Coreg 6.25 mg b.i.d. 6. Pepcid 20 mg p.o. daily. 7. Synthroid 50 mcg Friday, Friday, , Friday, Friday. 8. Synthroid 75 mcg p.o. Friday, Friday. 9. Zosyn 3.375 IV q.8. 10.Flomax 0.4 b.i.d. PHYSICAL EXAMINATION: Patient is alert, oriented x1. Pulse 63, blood pressure 149/72, respirations 16, temperature 97.6, pulse ox 98% on room air. HEENT: Conjunctivae normal. Oral mucosa moist. NECK: No jugular venous distention. No carotid bruit. No lymph node enlargement. CARDIOVASCULAR SYSTEM: S1, S2 muffled. No S3. No S4. RESPIRATORY SYSTEM: Breath sounds diminished at the bases. A few scattered rhonchi and crackles. Expiratory wheezing also present. ABDOMEN: Soft, non-tender. No mass palpable. LEGS: No edema. No swelling. NERVOUS SYSTEM: Higher functions as mentioned earlier. Moves all 4 limbs. No focal motor or sensory deficit. LYMPHATICS: No lymph node palpable in neck, axillae or groin. SKIN: No ulcer, rash, bleeding. JOINTS: No active deforming arthropathy. LABS: WBC 6.7, hemoglobin 11.9, sodium 141, potassium 3.6. ASSESSMENT: 1. Acute sepsis secondary to left lower lobe pneumonia, possibly gram-negative, present on admission, on broad-spectrum IV antibiotics. 2. Nraa parapsilosis and fungal sepsis. 3. Toxic encephalopathy, multifactorial, from infection. 4. Acute renal failure, possibly prerenal acute tubular necrosis. 5. Atrial fibrillation. 6. Hypertension. 7. Frontotemporal dementia. 8. Hypothyroidism. 9. History of benign prostatic hypertrophy. 10.Anemia of chronic disease. 11.History of dementia. 12.History of prostatomegaly. 13.History of degenerative joint disease. 14.History of depression. 15.History of cataracts. RECOMMENDATIONS AND DISCUSSION: In this 83-year-old gentleman who presented with multiple medical issues, at this time I recommend to continue the current medications, continue with symptomatic treatment. Otherwise at this time continue with the empiric antibiotics, antifungals. Prognosis guarded because of multiple complex medical issues. Further recommendations to follow. See orders for further details. Continue with Eliquis. PT/OT evaluation. MMODL / IJN: [id number] /
[2019-02-01] MEDS: ASPIRIN 81 MG PO SCH (20:02)
--- NOTE | 2019-02-01 23:32 | P.CONS ---
History of Present Illness - Reason for Consult Consult date: 02/01/19 - Chief Complaint altered mental status - History of Present Illness 83 -year-old male who has a history of dementia who is cared for by his in the home setting he had a alteration of his mental status. He became considerably more confused and also had evidence of fever. With his altered status he was brought to the emergency center with concerns pneumonia he was admitted to hospital. Was initiated antibiotic therapy with Zosyn and Levaquin. His mental status continued to be a bit of the difficulty and there was concerns to fluoroquinolone effect and this was discontinued. The patient remained on some hydration and showed some improvement. The patient has significant dementia and his provides almost all of the history. 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 Patient's relates that the time there was some difficulty came back and stopped hunting. There are no animals in the home. He is a tobacco smoker or alcohol user. Smoking Status: Never smoker Past Alcohol Use History: Rare Past Drug Use History: None Reported - Past Family History Mother Family Medical History: No Reported History Father Family Medical History: Dementia, Myocardial Infarction (NM) Medications and Allergies Home Medications and Allergies Comment(s): Current Medications Apixaban (Eliquis) 2.5 mg PO BID [facility] Last Admin: 02/01/19 20:02 Dose: 2.5 mg Documented by: Aspirin (Aspirin) 81 mg PO HS [facility] Last Admin: 02/01/19 20:02 Dose: 81 mg Documented by: Calcium Polycarbophil (Fibercon) 2,500 mg PO DAILY [facility] Last Admin: 10/07/19 08:46 Dose: 2,500 mg Documented by: Carvedilol (Coreg) 6.25 mg PO BID-W/MEALS [facility] Last Admin: 02/01/19 17:17 Dose: 6.25 mg Documented by: Famotidine (Pepcid) 20 mg PO DAILY [facility] Last Admin: 02/01/19 08:46 Dose: 20 mg Documented by: Piperacillin Sod/Tazobactam (Sod 3.375 gm/ Sodium Chloride) 100 mls @ 25 mls/hr IVPB Q8H [facility] Last Admin: 02/01/19 22:11 Dose: 25 mls/hr Documented by: Sodium Chloride (Saline 0.9%) 1,000 mls @ 75 mls/hr IV .[id number] [facility] Last Admin: 02/01/19 22:11 Dose: 75 mls/hr Documented by: Anidulafungin 100 mg/ Sodium (Chloride) 100 mls @ 84 mls/hr IVPB DAILY [facility] Levothyroxine Sodium (Synthroid) 75 mcg PO SuTu@0630 [facility] Last Admin: 01/31/19 05:50 Dose: 75 mcg Documented by: Levothyroxine Sodium (Synthroid) 50 mcg PO MoWeThFrSa@0630 [facility] Last Admin: 02/01/19 05:33 Dose: 50 mcg Documented by: Miscellaneous Information (Pneumonia Protocol Utilized) 1 each PO ONCE PRN PRN Reason: Per Protocol Quetiapine Fumarate (Seroquel) 25 mg PO HS PRN PRN Reason: Agitation Tamsulosin HCl (Flomax) 0.4 mg PO BID [facility] Last Admin: 02/01/19 20:02 Dose: 0.4 mg Documented by: Home Medications Medication Instructions Recorded Confirmed Type Aspirin EC [Ecotrin Low Dose] 81 mg PO HS 12/23/13 01/29/19 History Tamsulosin [Flomax] 0.4 mg PO BID 12/23/13 01/29/19 History Mirtazapine [Remeron] 30 mg PO HS 01/14/18 01/29/19 History Multivitamins, Thera [Multivitamin 1 tab PO DAILY 01/14/18 01/29/19 History (formulary)] Vit C/E/Zn/Coppr/Lutein/Zeaxan 1 cap PO DAILY 01/14/18 01/29/19 History [Preservision Areds 2 Softgel] Apixaban [Eliquis] 2.5 mg PO BID 04/30/18 01/29/19 History Furosemide [Lasix] 20 mg PO DAILY 04/30/18 01/29/19 History Levothyroxine Sodium [Synthroid] 50 mcg PO MOWETHFRSA 04/30/18 01/29/19 History Potassium Chloride [Klor-Con 20] 20 meq PO DAILY 04/30/18 01/29/19 History Carvedilol [Coreg] 6.25 mg PO BID 08/24/18 01/29/19 History Levothyroxine Sodium [Synthroid] 75 mcg PO SUTU 08/24/18 01/29/19 History Meclizine [Antivert] 12.5 mg PO BID 08/24/18 01/29/19 History Metolazone [Zaroxolyn] 1.25 mg PO DAILY 08/24/18 01/29/19 History Lisinopril [Zestril] 5 mg PO HS 11/10/18 01/29/19 History Calcium Polycarbophil [Fiber-Lax] 2,500 mg PO DAILY 01/29/19 01/29/19 History Allergies Allergy/AdvReac Type Severity Reaction Status Date / Time No Known Allergies Allergy Verified 01/29/19 19:32 Physical Exam Vitals: Vital Signs Temp Pulse Resp BP Pulse Ox 02/01/19 21:00 98.2 F 56 L 18 127/66 99 02/01/19 11:46 97.6 F 63 16 149/72 98 02/01/19 05:04 98.6 F 63 16 135/88 91 L 01/31/19 23:21 16 Intake and Output 02/01/19 02/01/19 02/02/19 14:59 22:59 06:59 Other: Voiding Method Toilet Toilet Incontinent Incontinent # Voids 6 1 83-year-old male comfortable HEENT: Anicteric conjunctiva are pink and moist nasal mucosa grossly intact without significant lesions, there is no thrush. Dentures in place Neck: The neck is supple without significant lymphadenopathy or thyromegaly. Lungs: Clear symmetrical entry with few bibasilar cracklesand wheezing no dullness or egophony Heart: Irregular with an audible S1 and S2 soft S4 no distinct murmur click or a PMI was nondisplaced Abdomen: Positive bowel sounds soft and nontender without palpable masses or organomegaly. There was no guarding or rebound. Extremities: The upper extremities have excellent pulses they are symmetric, no significant petechiae or telangiectasia. No splinter hemorrhages were noted. The lower extremities are free from significant edema. The peripheral pulses were 2+ and symmetric. Skin reveals evidence of the significant anticoagulant effect with the easy bruisability to the upper extremities but no open ulcerations are seen Neuro: The patient is arousable is oriented to person however he does understand he was is. And upon questioning relates that they have been for 54 years Results CBC & Chem 7: 02/01/19 07:01 02/01/19 07: Labs: Abnormal Lab Results - Last 24 Hours (Table) 02/01/19 02/01/19 Range/Units 07: 07: RBC 3.79 L (4.30-5.90) m/uL Hgb 11.9 L (13.0-17.5) gm/dL Hct 37.0 L (39.0-53.0) % Plt Count 145 L (150-450) k/uL Chloride 108 H (98-107) mmol/L BUN 29 H (9-20) mg/dL Creatinine 1.59 H (0.66-1.25) mg/dL Microbiology - Last 24 Hours (Table) 01/29/19 18:21 Blood Culture Gram Stain - Preliminary Blood Blood Culture - Preliminary Nara parapsilosis 01/29/19 18:21 Blood Culture - Final Blood Laboratory Results WBC 6.7 k/uL (3.8-10.6) 02/01/19 07:01 RBC 3.79 m/uL (4.30-5.90) L 02/01/19 07: Hgb 11.9 gm/dL (13.0-17.5) L 02/01/19 07: Hct 37.0 % (39.0-53.0) L 02/01/19 07: MCV 97.6 fL (80.0-100.0) 02/01/19 07: MCH 31.5 pg (25.0-35.0) 02/01/19 07: MCHC 32.3 g/dL (31.0-37.0) 02/01/19 07:01 RDW 15.0 % (11.5-15.5) 02/01/19 07:01 Plt Count 145 k/uL (150-450) L 02/01/19 07:01 Neutrophils % 88 % 01/29/19 18:21 Lymphocytes % 2 % 01/29/19 18:21 Monocytes % 6 % 01/29/19 18:21 Eosinophils % 1 % 01/29/19 18:21 Basophils % 1 % 01/29/19 18:21 Neutrophils # 10.4 k/uL (1.3-7.7) H 01/29/19 18:21 Lymphocytes # 0.3 k/uL (1.0-4.8) L 01/29/19 18:21 Monocytes # 0.7 k/uL (0-1.0) 01/29/19 18:21 Eosinophils # 0.1 k/uL (0-0.7) 01/29/19 18:21 Basophils # 0.2 k/uL (0-0.2) 01/29/19 18:21 PT 11.4 sec (9.0-12.0) 01/29/19 18:21 INR 1.1 (<1.2) 01/29/19 18:21 APTT 23.0 sec (22.0-30.0) 01/29/19 18:21 Sodium 141 mmol/L (137-145) 02/01/19 07:01 Potassium 3.6 mmol/L (3.5-5.1) 02/01/19 07:01 Chloride 108 mmol/L (98-107) H 02/01/19 07:01 Carbon Dioxide 22 mmol/L (22-30) 02/01/19 07:01 Anion Gap 11 mmol/L 02/01/19 07:01 BUN 29 mg/dL (9-20) H 02/01/19 07:01 Creatinine 1.59 mg/dL (0.66-1.25) H 02/01/19 07:01 Est GFR (CKD-EPI)AfAm 46 (>60 ml/min/1.73 sqM) 02/01/19 07:01 Est GFR (CKD-EPI)NonAf 39 (>60 ml/min/1.73 sqM) 02/01/19 07:01 Glucose 93 mg/dL (74-99) 02/01/19 07:01 Plasma Lactic Acid Dony 1.3 mmol/L (0.7-2.0) 01/29/19 18:21 Calcium 9.4 mg/dL (8.4-10.2) 02/01/19 07:01 Total Bilirubin 1.7 mg/dL (0.2-1.3) H 01/29/19 18:21 AST 45 U/L (17-59) 01/29/19 18:21 ALT 17 U/L (21-72) L 01/29/19 18:21 Alkaline Phosphatase 104 U/L (38-126) 01/29/19 18:21 Total Protein 8.0 g/dL (6.3-8.2) 01/29/19 18:21 Albumin 4.2 g/dL (3.5-5.0) 01/29/19 18:21 Urine Color Yellow 01/29/19 20:22 Urine Appearance Clear (Clear) 01/29/19 20:22 Urine pH 5.0 (5.0-8.0) 01/29/19 20:22 Ur Specific [place] 1.015 (1.001-1.035) 01/29/19 20:22 Urine Protein Negative (Negative) 01/29/19 20:22 Urine Glucose (UA) Negative (Negative) 01/29/19 20:22 Urine Ketones Negative (Negative) 01/29/19 20:22 Urine Blood Negative (Negative) 01/29/19 20:22 Urine Nitrite Negative (Negative) 01/29/19 20:22 Urine Bilirubin Negative (Negative) 01/29/19 20:22 Urine Urobilinogen <2.0 mg/dL (<2.0) 01/29/19 20:22 Ur Leukocyte Esterase Negative (Negative) 01/29/19 20:22 C. difficile (EIA) Intrp Negative (Negative) 01/31/19 17:27 Influenza Type A RNA Not Detected (Not Detectd) 01/29/19 18:56 Influenza Type B (PCR) Not Detected (Not Detectd) 01/29/19 18:56 Microbiology 01/29/19 18:21 Blood Blood Culture Gram Stain - Preliminary 01/29/19 18:21 Blood Blood Culture - Preliminary Nara parapsilosis 01/29/19 18:21 Blood Blood Culture - Final 01/29/19 20:22 Urine,Catheterized Urine Culture - Preliminary Assessment and Plan (1) Fungemia Narrative/Plan: 83-year-old male brought since hospital with altered mental status which was a worsening of his overall performance status which is noticed per the who is a primary caregiver. He was also febrile. Extremities had some of the difficulty here is had a pacemaker placed in his had difficulties with chronic congestive heart failure with recurrent bouts of congestive heart failu re and pleural effusions and thoracentesis have occurred. Patient did have a sudden change of the stress consequently was brought in the hospital and was concerns pneumonia. Antibiotic therapy has begun there is evidence of fungemia with Nara species. At the time of the consultation Eraxis was initiated while further workup is in process. Follow-up blood cultures have been drawn and are in process. The patient does have a pacemaker in place and consequently an echocardiogram was requested to evaluate for the possibility of endocarditis. Fever has resolved, leukocytosis has improved seems to be improvement of his pulmonary status. The patient has had somewhat of an extensive amount of medical care of this year which is at some risk for fungemia however he was not broad-spectrum antibiotic therapy just before this admission. Current Visit: Yes Status: Acute Code(s): B49 - UNSPECIFIED MYCOSIS SNOMED Code(s): 006934414 (2) Pneumonia Current Visit: Yes Status: Acute Code(s): J18.9 - PNEUMONIA, UNSPECIFIED ORGANISM SNOMED Code(s): 598078382 (3) Advanced dementia Current Visit: No Status: Acute Code(s): F03.90 - UNSPECIFIED DEMENTIA WITHOUT BEHAVIORAL DISTURBANCE SNOMED Code(s): 52971470
[2019-02-02] MEDS: LEVOTHYROXINE 75 MCG TAB PO SCH (05:48)
[2019-02-02] MEDS: PIPERACILLIN-TAZOBACTAM 3.375 GM in SODIUM CHLORIDE 0.9% 100 ML IVPB SCH ×3 (05:48→23:02)
[2019-02-02] MEDS: APIXABAN 2.5 MG TABLET PO SCH ×2 (08:13→22:00)
[2019-02-02] MEDS: CARVEDILOL 6.25 MG TAB PO SCH ×2 (08:13→17:18)
[2019-02-02] MEDS: CALCIUM POLYCARBOPHIL 625 MG TAB PO SCH (08:13)
[2019-02-02] MEDS: FAMOTIDINE 20 MG TAB PO SCH (08:14)
[2019-02-02] MEDS: TAMSULOSIN 0.4 MG CAP.ER.24H PO SCH ×2 (08:14→22:00)
[2019-02-02 08:38] LABS: Basophils % (A) 1 %; Eosinophils # (A) 0.2 k/uL (0-0.7); Eosinophils % (A) 3 %; HCT 35.3 % (39.0-53.0); HGB 10.9 gm/dL (13.0-17.5); Hypochromasia Slight; Lymphocytes # (A) 1.2 k/uL (1.0-4.8); Lymphocytes % (A) 23 %; MCH 30.1 pg (25.0-35.0); MCHC 30.9 g/dL (31.0-37.0); MCV 97.6 fL (80.0-100.0); Mean Platelet Volume 7.8; Monocytes # (A) 0.3 k/uL (0-1.0); Monocytes % (A) 6 %; Neutrophils # (A) 3.2 k/uL (1.3-7.7); Neutrophils % (A) 65 %; Platelet Count 150 k/uL (150-450); RBC 3.61 m/uL (4.30-5.90)
[2019-02-02 09:09] LABS: Calcium 9.2 mg/dL (8.4-10.2); Potassium 3.5 mmol/L (3.5-5.1)
[2019-02-02] MEDS: ANIDULAFUNGIN 100 MG in SODIUM CHLORIDE 0.9% 100 ML IVPB SCH (10:12)
--- NOTE | 2019-02-02 11:21 | ECHOF ---
Referral Reason:Endocarditis MEASUREMENTS -------- HEIGHT: 167.6 cm WEIGHT: 83.9 kg BP: 158/82 IVSd: 1.1 cm (0.6 - 1.1) LVIDd: 4.0 cm (3.9 - 5.3) LVPWd: 1.1 cm (0.6 - 1.1) IVSs: 1.8 cm LVIDs: 2.3 cm LVPWs: 2.2 cm LAESV Index (A-L): 32.54 ml/m Ao Diam: 2.9 cm (2.0 - 3.7) AV Cusp: 1.1 cm (1.5 - 2.6) LA Diam: 2.6 cm (2.7 - 3.8) MV EXCURSION: 15.965 mm (> 18.000) MV EF SLOPE: 126 mm/s (70 - 150) EPSS: 0.9 cm MV E Lenny: 0.85 m/s MV DecT: 198 ms MV A Lenny: 0.30 m/s MV E/A Ratio: 2.89 AV maxP.78 mmHg AV meanP.48 mmHg RAP: 5.00 mmHg RVSP: 33.01 mmHg TAPSE: 18.74 mm FINDINGS -------- Paced rhythm. This was a technically difficult study with suboptimal views. The left ventricular size is normal. There is mild concentric left ventricular hypertrophy. Overa ll left ventricular systolic function is low-normal with, an EF between 50 - 55 %. Septal Hypokines is The right ventricle is normal in size. LA is midly dilated 29-33ml/m2. The right atrial size is normal. xx ml of Lumason was utilized for enhancement of images. Aortic valve is trileaflet and is mildly thickened. There is mild aortic stenosis present. Peak/m ramonita gradient across the Aortic Valve is 29.78mmHg / 18.48mmHg. The mitral valve is normal. The mitral valve leaflets are mildly thickened. Mild mitral annular c alcification present. There is trace mitral regurgitation. The tricuspid valve appears structurally normal. Trace tricuspid regurgitation present. The pulmonic valve was not well visualized. The aortic root size is normal. IVC Not well visulized. There is a trivial pericardial effusion present. CONCLUSIONS -------- 1. Paced rhythm. 2. This was a technically difficult study with suboptimal views. 3. The left ventricular size is normal. 4. There is mild concentric left ventricular hypertrophy. 5. Overall left ventricular systolic function is low-normal with, an EF between 50 - 55 %. 6. Septal Hypokinesis 7. The right ventricle is normal in size. 8. LA is midly dilated 29-33ml/m2. 9. The right atrial size is normal. 10. xx ml of Lumason was utilized for enhancement of images. 11. Aortic valve is trileaflet and is mildly thickened. 12. There is mild aortic stenosis present. 13. Peak/mean gradient across the Aortic Valve is 29.78mmHg / 18.48mmHg. 14. The mitral valve is normal. 15. The mitral valve leaflets are mildly thickened. 16. Mild mitral annular calcification present. 17. There is trace mitral regurgitation. 18. The tricuspid valve appears structurally normal. 19. Trace tricuspid regurgitation present. 20. The pulmonic valve was not well visualized. 21. The aortic root size is normal. 22. IVC Not well visulized. 23. There is a trivial pericardial effusion present. AIR ANALYSIS ENGINEERING TECHNICIAN: Cindi De La Cruz RDCS
--- NOTE | 2019-02-02 18:15 | PN ---
PROGRESS NOTE DATE OF SERVICE: 02/02/2019. This 83-year-old gentleman who was admitted with sepsis secondary to left lower lobe pneumonia also had fungemia. The patient is on antifungal medications. Infectious Disease, Dr. Peacock, is following the patient closely. No chest pain. No palpitation at this time. The patient also has gait dysfunction. No chest pain. No palpitations. No fever. On exam, alert and oriented x1. Pulse 62, blood pressure 161/80, respiration 16, temperature 98.2, pulse ox 98% on room air. HEENT: Conjunctivae normal. NECK: No jugular venous distention. CARDIOVASCULAR SYSTEM: S1, S2 muffled. RESPIRATORY SYSTEM: Breath sounds diminished at the bases. A few scattered rhonchi. No crackles. ABDOMEN: Soft, non-tender. LEGS: No edema. No swelling. NERVOUS SYSTEM: Diffusely weak. LABS: WBC 5, hemoglobin 10.9, creatinine 1.38. C difficile is negative. ASSESSMENT: 1. Acute sepsis secondary to left lower lobe pneumonia, possibly gram-negative, present on admission; on broad-spectrum IV antibiotics. 2. Nara parapsilosis and fungal sepsis. 3. Toxic encephalopathy, multifactorial, from infection, acute. 4. Acute renal failure, possibly prerenal acute tubular necrosis. 5. Atrial fibrillation, chronic. 6. Hypertension. 7. Frontotemporal dementia. 8. Hypothyroidism. 9. History of benign prostatic hypertrophy. 10.History of anemia of chronic disease. 11.History of dementia. 12.History of prostatomegaly. 13.History of degenerative joint disease. 14.History of depression. 15.History of cataracts. RECOMMENDATIONS AND DISCUSSION: I recommend to continue current medications, continue with the monitoring, symptomatic treatment. Continue the antibiotics, antifungals. PT/OT evaluation and possible ECF rehab. Discussed with the patient's at the bedside at length, who understands and agrees. Further recommendations to follow. Prognosis guarded. MMODL / IJN: [id number] /
[2019-02-02] MEDS: SODIUM CHLORIDE 0.9% 1,000 ML IV SCH (19:48)
[2019-02-02] MEDS: ASPIRIN 81 MG PO SCH (22:00)
[2019-02-03] MEDS: PIPERACILLIN-TAZOBACTAM 3.375 GM in SODIUM CHLORIDE 0.9% 100 ML IVPB SCH ×2 (05:40→14:50)
[2019-02-03] MEDS: SODIUM CHLORIDE 0.9% 1,000 ML IV SCH (05:40)
[2019-02-03] MEDS: LEVOTHYROXINE 50 MCG TAB PO SCH (05:40)
[2019-02-03] MEDS: FAMOTIDINE 20 MG TAB PO SCH (07:55)
[2019-02-03] MEDS: TAMSULOSIN 0.4 MG CAP.ER.24H PO SCH ×2 (07:55→21:31)
[2019-02-03] MEDS: APIXABAN 2.5 MG TABLET PO SCH ×2 (07:55→21:31)
[2019-02-03] MEDS: CALCIUM POLYCARBOPHIL 625 MG TAB PO SCH (07:55)
[2019-02-03] MEDS: CARVEDILOL 6.25 MG TAB PO SCH ×2 (07:57→16:50)
[2019-02-03] MEDS: ANIDULAFUNGIN 100 MG in SODIUM CHLORIDE 0.9% 100 ML IVPB SCH (07:57)
[2019-02-03 08:07] LABS: Basophils % (A) 0 %; Eosinophils # (A) 0.1 k/uL (0-0.7); Eosinophils % (A) 3 %; HGB 10.9 gm/dL (13.0-17.5); Lymphocytes # (A) 1.1 k/uL (1.0-4.8); Lymphocytes % (A) 28 %; MCH 30.4 pg (25.0-35.0); MCHC 32.1 g/dL (31.0-37.0); MCV 94.8 fL (80.0-100.0); Mean Platelet Volume 6.7; Monocytes # (A) 0.3 k/uL (0-1.0); Monocytes % (A) 8 %; Neutrophils # (A) 2.4 k/uL (1.3-7.7); Neutrophils % (A) 58 %; Platelet Count 169 k/uL (150-450); RBC 3.58 m/uL (4.30-5.90); WBC 4.1 k/uL (3.8-10.6)
[2019-02-03 08:21] LABS: Calcium 9.3 mg/dL (8.4-10.2); Potassium 3.5 mmol/L (3.5-5.1)
--- NOTE | 2019-02-03 20:49 | PN ---
PROGRESS NOTE DATE OF SERVICE: 02/03/2019 This 83-year-old gentleman who was admitted after acute sepsis secondary to left lower pneumonia also had fungemia also. No chest pain. No palpitations. No fever. Repeat cultures are negative. A 2D echo with Doppler showed ejection fraction about 50-55 percent. No acute lesions. No chest pain. No palpitations. No fever. EXAM: Alert and oriented x1. Pulse is 60. Blood pressure 140/70, respirations 16, temperature 97.2, pulse ox 98% on room air. HEENT: Conjunctivae normal. NECK: No JVD. CARDIOVASCULAR: S1, S2 muffled. RESPIRATIONS: Breath sounds diminished in the bases. No rhonchi. No crackles. ABDOMEN is soft, nontender. LEGS are no edema. No swelling. CENTRAL NERVOUS SYSTEM: No focal deficits. LABS: WBC 4.2, hemoglobin 10.9. Sodium 142, potassium 3.5. ASSESSMENT: 1. Acute sepsis secondary to left lower pneumonia possibly gram-negative, present on admission on broad-spectrum IV antibiotics. 2. Nara parapsilosis and fungal sepsis. 3. Toxic encephalopathy multifactorial from infection, acute. 4. Acute renal failure possibly prerenal acute tubular necrosis. 5. Atrial fibrillation, chronic. 6. Hypertension. 7. History of dementia. 8. Hypothyroidism. 9. History of benign prostatic hypertrophy. 10.Anemia of chronic disease. 11.History of prostatomegaly. 12.History of degenerative joint disease. 13.History of depression. 14.History of cataracts. RECOMMENDATIONS AND DISCUSSION: Recommend to continue current medications, continue to monitor. Symptomatic treatment. Otherwise at this time I would continue with current medications. Closely follow with Infectious Disease. PT/OT evaluation. Guarded prognosis. Further recommendations to follow. MMODL / IJN: [id number] /
--- NOTE | 2019-02-03 20:53 | P.PN ---
Subjective Progress Note Date: 02/03/19 83 -year-old male who has a history of dementia who is cared for by his in the home setting he had a alteration of his mental status. He became considerably more confused and also had evidence of fever. With his altered status he was brought to the emergency center with concerns pneumonia he was admitted to hospital. Was initiated antibiotic therapy with Zosyn and Levaquin. His mental status continued to be a bit of the difficulty and there was concerns to fluoroquinolone effect and this was discontinued. The patient remained on some hydration and showed some improvement. The patient has significant dementia and his provides almost all of the history. 02/03/2019 patient has dementia but seems comfortable, with the 's guidance he is out of bed and was able to walk the hallway with a walker without difficulty. The is now much more comfortable with how he is progressing. Objective - Vital Signs Vital signs: Vital Signs Temp 97.4 F L 02/03/19 11:55 Pulse 60 02/03/19 11:55 Resp 16 02/03/19 11:55 BP 144/77 02/03/19 11:55 Pulse Ox 99 02/03/19 11:55 Intake & Output 02/03/19 02/03/19 02/04/19 06:59 18:59 06:59 Intake Total 1000 100 Balance 1000 100 Intake: Intake, IV Titration 1000 100 Amount Anidulafungin 100 mg In 100 Sodium Chloride 0.9% 100 ml @ 84 mls/hr IVPB DAILY [facility] Rx#:[id number] Piperacillin-Tazobactam 3 100 .375 gm In Sodium Chloride 0.9% 100 ml @ 25 mls/hr IVPB Q8H [facility] Rx#: [id number] Sodium Chloride 0.9% 1, 900 000 ml @ 75 mls/hr IV . [id number] [facility] Rx#:[id number] Other: Voiding Method Toilet Toilet Diaper Diaper Incontinent Incontinent # Voids 1 - Exam HEENT: Anicteric conjunctiva are pink and moist nasal mucosa grossly intact without significant lesions, there is no thrush. Dentures in place Neck: The neck is supple without significant lymphadenopathy or thyromegaly. Lungs: Clear symmetrical entry with few bibasilar cracklesand wheezing no dullness or egophony Heart: Irregular with an audible S1 and S2 soft S4 no distinct murmur click or a PMI was nondisplaced Abdomen: Positive bowel sounds soft and nontender without palpable masses or organomegaly. There was no guarding or rebound. Extremities: The upper extremities have excellent pulses they are symmetric, no significant petechiae or telangiectasia. No splinter hemorrhages were noted. The lower extremities are free from significant edema. The peripheral pulses were 2+ and symmetric. Skin reveals evidence of the significant anticoagulant effect with the easy bruisability to the upper extremities but no open ulcerations are seen Neuro: The patient is arousable is oriented to person however he does understand and recognizes his - Labs CBC & Chem 7: 02/03/19 07:01 02/03/19 07:01 Labs: Abnormal Lab Results - Last 24 Hours (Table) 02/03/19 02/03/19 Range/Units 07:01 07:01 RBC 3.58 L (4.30-5.90) m/uL Hgb 10.9 L (13.0-17.5) gm/dL Hct 34.0 L (39.0-53.0) % Chloride 113 H (98-107) mmol/L BUN 21 H (9-20) mg/dL Microbiology - Last 24 Hours (Table) 02/01/19 09:49 Blood Culture - Preliminary Blood No Growth after 48 hours Microbiology 02/01/19 09:49 Blood Blood Culture - Preliminary No Growth after 48 hours 01/29/19 18:21 Blood Blood Culture Gram Stain - Final 01/29/19 18:21 Blood Blood Culture - Final Nara parapsilosis 01/29/19 20:22 Urine,Catheterized Urine Culture - Final 01/29/19 18:21 Blood Blood Culture - Final - Imaging and Cardiology 2-D echocardiogram without evidence of vegetation Assessment and Plan (1) Fungemia Narrative/Plan: 83-year-old male brought since hospital with altered mental status which was a worsening of his overall performance status which is noticed per the who is a primary caregiver. He was also febrile. Extremities had some of the difficulty here is had a pacemaker placed in his had difficulties with chronic congestive heart failure with recurrent bouts of congestive heart failure and pleural effusions and thoracentesis have occurred. Patient did have a sudden change of the stress consequently was brought in the hospital and was concerns pneumonia. Antibiotic therapy has begun there is evidence of fungemia with Nara species. At the time of the consultation Eraxis was initiated while further workup is in process. Follow-up blood cultures have been drawn and are in process. The patient does have a pacemaker in place and consequently an echocardiogram was requested to evaluate for the possibility of endocarditis. Fever has resolved, leukocytosis has improved seems to be improvement of his pulmonary status. The patient has had somewhat of an extensive amount of medical care of this year which is at some risk for fungemia however he was not broad-spectrum antibiotic therapy just before this admission. 02/13/2018 the patient has had improvement since admission. His profound weakness is improving. It was able to get up and walk in the hallway today which the is extremely pleased with this he needs to be ambulatory to live at home with her. He has developed dementia but is pleasant and interactive. He is eating well. He is tolerating current interventions well. Nara parapsillosis has been isolated and it is susceptible to fluconazole and consequently will be able to transition Eraxis 2 fluconazole to complete his course of therapy for his isolated nara fungemia. Source is not clear however he does have the echocardiogram but does not show evidence of vegetation. The following blood cultures are negative with evidence of clearing of the fungemia. Given that the patient had a fever of greater than 101, increased confusion and diarrhea there was concerns to a suspected infectious illness time admission. The only finding is benign fungemia, and with this treatment the patient has markedly improved. We'll plan a 14 day course on his L after his discharge with follow-up with his primary care physician the relates that they will be out of town. Current Visit: Yes Status: Acute Code(s): B49 - UNSPECIFIED MYCOSIS SNOMED Code(s): 259794481 (2) Pneumonia Current Visit: Yes Status: Acute Code(s): J18.9 - PNEUMONIA, UNSPECIFIED OR GANISM SNOMED Code(s): 509090486 (3) Advanced dementia Current Visit: No Status: Acute Code(s): F03.90 - UNSPECIFIED DEMENTIA WITHOUT BEHAVIORAL DISTURBANCE SNOMED Code(s): 18091836
[2019-02-03] MEDS: ASPIRIN 81 MG PO SCH (21:31)
[2019-02-04] MEDS: PIPERACILLIN-TAZOBACTAM 3.375 GM in SODIUM CHLORIDE 0.9% 100 ML IVPB SCH ×4 (00:01→21:19)
[2019-02-04] MEDS: SODIUM CHLORIDE 0.9% 1,000 ML IV SCH ×2 (05:50→13:07)
[2019-02-04] MEDS: LEVOTHYROXINE 50 MCG TAB PO SCH (05:51)
[2019-02-04 07:58] LABS: Basophils % (A) 0 %; Eosinophils # (A) 0.2 k/uL (0-0.7); Eosinophils % (A) 3 %; HCT 35.4 % (39.0-53.0); HGB 11.6 gm/dL (13.0-17.5); Lymphocytes # (A) 1.2 k/uL (1.0-4.8); Lymphocytes % (A) 20 %; MCH 30.6 pg (25.0-35.0); MCHC 32.8 g/dL (31.0-37.0); MCV 93.3 fL (80.0-100.0); Mean Platelet Volume 6.7; Monocytes # (A) 0.4 k/uL (0-1.0); Monocytes % (A) 7 %; Neutrophils # (A) 4.1 k/uL (1.3-7.7); Neutrophils % (A) 68 %; Platelet Count 181 k/uL (150-450); RBC 3.79 m/uL (4.30-5.90)
[2019-02-04 08:15] LABS: Calcium 9.4 mg/dL (8.4-10.2); Potassium 3.5 mmol/L (3.5-5.1)
[2019-02-04] MEDS: CARVEDILOL 6.25 MG TAB PO SCH ×2 (08:53→19:08)
[2019-02-04] MEDS: TAMSULOSIN 0.4 MG CAP.ER.24H PO SCH ×2 (08:53→21:18)
[2019-02-04] MEDS: CALCIUM POLYCARBOPHIL 625 MG TAB PO SCH (08:53)
[2019-02-04] MEDS: APIXABAN 2.5 MG TABLET PO SCH ×2 (08:53→21:18)
[2019-02-04] MEDS: FAMOTIDINE 20 MG TAB PO SCH (08:55)
[2019-02-04] MEDS: ANIDULAFUNGIN 100 MG in SODIUM CHLORIDE 0.9% 100 ML IVPB SCH (09:09)
[2019-02-04 10:31] VITALS: BMI 29.8
--- NOTE | 2019-02-04 13:03 | XR ---
EXAMINATION TYPE: XR chest 1V portable DATE OF EXAM: 02/04/2019 CLINICAL HISTORY: Pneumonia progress study. TECHNIQUE: Single AP portable upright view of the chest is obtained. COMPARISON: Chest x-ray from 5 days earlier. FINDINGS: Persistent cardiomegaly with single lead pacemaker and atherosclerotic aorta. Persistent s mall to moderate size left pleural effusion with associated left basilar atelectasis and/or infiltrat e. Right lung is clear. Degenerative change right glenohumeral joint is noted. IMPRESSION: Overall stable findings, cardiomegaly with small to moderate-sized left pleural effusio n and associated left basilar atelectasis and/or infiltrate are all redemonstrated.
[2019-02-04] MEDS ORDERED: FUROSEMIDE 10 MG/ML 2 ML VIAL IV ONE (14:45)
[2019-02-04] MEDS: PANTOPRAZOLE 40 MG TABLET PO SCH (15:47)
--- NOTE | 2019-02-04 16:22 | PN ---
PROGRESS NOTE DATE OF SERVICE: 02/04/2019 This 83-year-old gentleman who was admitted with acute sepsis secondary to left lower lobe pneumonia also had Nara parapsilosis fungal infection. The chest x-ray showed some evidence of CHF and some pneumonia, too. The repeat chest x-ray still shows some effusion. which was done yesterday showed evidence of ejection fraction about 50% to 55% and some septal hypokinesis also. The patient is being closely monitored at this time. No chest pain. No palpitations. No fever. Past medical history reviewed. REVIEW OF SYSTEMS: CARDIOVASCULAR SYSTEM: As mentioned earlier. RESPIRATORY SYSTEM: As mentioned earlier. GI: No nausea, vomiting. : No dysuria or retention. NERVOUS SYSTEM: No numbness, weakness. CURRENT MEDICATIONS: Reviewed. They include: 1. Anidulafungin 100 mg q.24 hours. 2. Eliquis 2.5 mg b.i.d. 3. Aspirin 81 mg daily. 4. FiberCon 2.5 mg p.o. daily. 5. Coreg 6.25 mg b.i.d. 6. Pepcid 20 mg daily. 7. Synthroid 50 mcg p.o. Friday, Friday, , Friday and 75 mcg Friday, Friday. 8. Zosyn 3.375 IV q.8. 9. Seroquel. 10.Flomax 0.4 daily. PHYSICAL EXAMINATION: Patient is alert, oriented x1. Pulse 68, blood pressure 157/81, respirations 16, temperature 97.4, pulse ox 97% on room air. HEENT: Conjunctivae normal. NECK: No jugular venous distention. CARDIOVASCULAR SYSTEM: S1, S2 muffled. RESPIRATORY SYSTEM: Breath sounds diminished at the bases. A few scattered rhonchi and crackles. ABDOMEN: Soft, non-tender. LEGS: No edema. No swelling. NERVOUS SYSTEM: Mild diffuse weakness. LABS: WBC 4.1, hemoglobin 10.9, sodium 142, potassium 3.5. ASSESSMENT: 1. Acute sepsis secondary to possibly left lower pneumonia, possibly gram- negative, present on admission, on broad-spectrum IV antibiotics. 2. Nara parapsilosis and fungal sepsis. 3. Left pleural effusion, possibly congestive heart failure, acute exacerbation, with acute on chronic diastolic dysfunction. 4. Toxic encephalopathy, multifactorial from infection, acute. 5. Acute renal failure from possibly prerenal acute tubular necrosis. 6. Atrial fibrillation, chronic. 7. Hypertension. 8. History of dementia. 9. Hypothyroidism. 10.History of benign prostatic hypertrophy. 11.Anemia of chronic disease. 12.History of prostatomegaly. 13.History of degenerative joint disease. 14.History of depression. 15.Gait dysfunction. 16.History of cataracts. RECOMMENDATIONS AND DISCUSSION: In this 83-year-old gentleman who presented with multiple complex medical issues, we will monitor the patient closely, continue the current medications, continue with symptomatic treatment. Otherwise at this time I recommend a single dose of Lasix and monitor BUN and creatinine closely. Otherwise, continue the broad-spectrum antibiotics and antifungals. Guarded prognosis because of multiple complex medical conditions. Further recommendations to follow. See orders for further details. PT/OT has evaluated and recommended ECF rehab, but at this time the family is adamant that the patient is returning home. Once again, the overall prognosis is guarded. See orders for further details. MMODL / IJN: [id number] / SAMANTHA
[2019-02-04] MEDS: ASPIRIN 81 MG PO SCH (21:18)
[2019-02-04 21:25] VITALS: PULSE 60
[2019-02-05] MEDS: PIPERACILLIN-TAZOBACTAM 3.375 GM in SODIUM CHLORIDE 0.9% 100 ML IVPB SCH ×2 (05:40→15:37)
[2019-02-05] MEDS: LEVOTHYROXINE 50 MCG TAB PO SCH (05:41)
[2019-02-05] MEDS: CALCIUM POLYCARBOPHIL 625 MG TAB PO SCH (08:04)
[2019-02-05] MEDS: TAMSULOSIN 0.4 MG CAP.ER.24H PO SCH (08:05)
[2019-02-05] MEDS: PANTOPRAZOLE 40 MG TABLET PO SCH (08:05)
[2019-02-05] MEDS: CARVEDILOL 6.25 MG TAB PO SCH (08:05)
[2019-02-05] MEDS: APIXABAN 2.5 MG TABLET PO SCH (08:05)
[2019-02-05] MEDS: ANIDULAFUNGIN 100 MG in SODIUM CHLORIDE 0.9% 100 ML IVPB SCH (08:06)
[2019-02-05 12:38] VITALS: BP 160/87; RESP 20; TEMP 97.4
--- NOTE | 2019-02-16 22:36 | P.DS ---
Providers Date of admission: 01/29/19 22:33 Expected date of discharge: 02/05/19 Attending physician: Guerrero Chapman Consults: 02/01/19 08:41 Consult Physician Routine Consulting Provider: Jamil Peacock Consult Reason/Comments: blood culture yeast Do you want consulting provider notified?: Yes Primary care physician: Cullen Willis Adriel Layton Hospital Course: Discharge diagnosis Acute sepsis secondary to possible left lower lobe pneumonia. Gram-negative. Present on admission Nara/fungal sepsis Left pleural effusion. Possible acute on chronic CHF with diastolic dysfunction Toxic metabolic encephalopathy secondary to infection Acute kidney injury due to prerenal.. Possible ATN. Chronic atrial fibrillation Hypertension Dementia Hypothyroidism BPH Degenerative joint disease Anemia of chronic disease Depression Gait dysfunction History of Hospital course 83-year-old pleasant male was admitted secondary to altered mental status from a left lower lobe pneumonia. Patient is feeling much better today respiratory- vora as well as mental status vora patient is at his baseline which is alert oriented 2-3. Was initiated antibiotic therapy with Zosyn and Levaquin. Patient was seen by ID. Patient had 2-D echocardiogram showed ejection fraction 50-20% and mild hypokinesis. Patient did improve clinically with the above management. Stable to be discharged today. GENERAL: The patient is alert and oriented x2-3, not in any acute distress. Well developed, well nourished. HEENT: Pupils are round and equally reacting to light. EOMI. No scleral icterus. No conjunctival pallor. Normocephalic, atraumatic. No pharyngeal erythema. No thyromegaly. CARDIOVASCULAR: S1 and S2 present. No murmurs, rubs, or gallops. PULMONARY: No wheezing or crackles were appreciated exam is limited as patient doesn't take ABDOMEN: Soft, nontender, nondistended, normoactive bowel sounds. No palpable organomegaly. MUSCULOSKELETAL: No joint swelling or deformity. EXTREMITIES: No cyanosis, clubbing, or pedal edema. NEUROLOGICAL: Gross neurological examination did not reveal any focal deficits. SKIN: No rashes. Discharge vitals reviewed. Total time taken greater than 35 minutes including 18 minutes for counseling and coordination of care. Patient Condition at Discharge: Serious Plan - Discharge Summary Discharge Rx Participant: No New Discharge Prescriptions: New Fluconazole 400 mg PO DAILY #28 tab Continue Aspirin EC [Ecotrin Low Dose] 81 mg PO HS Tamsulosin [Flomax] 0.4 mg PO BID Mirtazapine [Remeron] 30 mg PO HS Multivitamins, Thera [Multivitamin (formulary)] 1 tab PO DAILY Vit C/E/Zn/Coppr/Lutein/Zeaxan [Preservision Areds 2 Softgel] 1 cap PO DAILY Potassium Chloride [Klor-Con 20] 20 meq PO DAILY Levothyroxine Sodium [Synthroid] 50 mcg PO MOWETHFRSA Apixaban [Eliquis] 2.5 mg PO BID Furosemide [Lasix] 20 mg PO DAILY Levothyroxine Sodium [Synthroid] 75 mcg PO SUTU Metolazone [Zaroxolyn] 1.25 mg PO DAILY Carvedilol [Coreg] 6.25 mg PO BID Lisinopril [Zestril] 5 mg PO HS Calcium Polycarbophil [Fiber-Lax] 2,500 mg PO DAILY Discontinued Meclizine [Antivert] 12.5 mg PO BID Discharge Medication List Aspirin EC [Ecotrin Low Dose] 81 mg PO HS 12/23/13 [History] Tamsulosin [Flomax] 0.4 mg PO BID 12/23/13 [History] Mirtazapine [Remeron] 30 mg PO HS 01/14/18 [History] Multivitamins, Thera [Multivitamin (formulary)] 1 tab PO DAILY 01/14/18 [History] Vit C/E/Zn/Coppr/Lutein/Zeaxan [Preservision Areds 2 Softgel] 1 cap PO DAILY 01/14/18 [History] Apixaban [Eliquis] 2.5 mg PO BID 04/30/18 [History] Furosemide [Lasix] 20 mg PO DAILY 04/30/18 [History] Levothyroxine Sodium [Synthroid] 50 mcg PO MOWETHFRSA 04/30/18 [History] Potassium Chloride [Klor-Con 20] 20 meq PO DAILY 04/30/18 [History] Carvedilol [Coreg] 6.25 mg PO BID 08/24/18 [History] Levothyroxine Sodium [Synthroid] 75 mcg PO SUTU 08/24/18 [History] Metolazone [Zaroxolyn] 1.25 mg PO DAILY 08/24/18 [History] Lisinopril [Zestril] 5 mg PO HS 11/10/18 [History] Calcium Polycarbophil [Fiber-Lax] 2,500 mg PO DAILY 01/29/19 [History] Fluconazole 400 mg PO DAILY #28 tab 02/03/19 [Rx] Follow up Appointment(s)/Referral(s): Judith Jauregui [NON-STAFF] - 1-2 Days (home care will call you to set up scheduale. If you do not hear from them or questions, please call agency. ) Cullen Morel MD [Primary Care Provider] - 1-2 days (Patient to call Dr. Morel's office to Friday to schedule follow up appointment. The office is closed at time of discharge. ) Patient Instructions/Handouts: Fluconazole (By mouth), Pleural Effusion (DC), Pneumonia (DC) Activity/Diet/Wound Care/Special Instructions: Diet as tolerated Activity as tolerated Discharge Disposition: HOME WITH HOME HEALTH SERVICES
== END 2019-02-05 16:30 | disposition home health service (06) | DRG 871 ==
LOC: EC 17:09 → 3NMEDONC 22:33
PROVIDERS: ADMIT Internal Medicine; ATTEND Internal Medicine
DX: B37.7 Candidal sepsis (principal); J15.6 Pneumonia due to other Gram-negative bacteria; G92 Toxic encephalopathy; I50.33 Acute on chronic diastolic (congestive) heart failure; N17.0 Acute kidney failure with tubular necrosis; I48.20 Chronic atrial fibrillation, unspecified; I11.0 Hypertensive heart disease with heart failure; D63.8 Anemia in other chronic diseases classified elsewhere; E86.1 Hypovolemia; G31.09 Other frontotemporal neurocognitive disorder; F02.80 Dementia in other diseases classified elsewhere, unspecified severity, without behavioral disturbance, psychotic disturbance, mood disturbance, and anxiety; K21.9 Gastro-esophageal reflux disease without esophagitis; N40.1 Benign prostatic hyperplasia with lower urinary tract symptoms; N39.498 Other specified urinary incontinence; E03.9 Hypothyroidism, unspecified; F32.9 Major depressive disorder, single episode, unspecified; R26.9 Unspecified abnormalities of gait and mobility; M19.90 Unspecified osteoarthritis, unspecified site; Z79.01 Long term (current) use of anticoagulants; Z79.890 Hormone replacement therapy; Z79.899 Other long term (current) drug therapy; Z90.49 Acquired absence of other specified parts of digestive tract; Z95.0 Presence of cardiac pacemaker; Z90.79 Acquired absence of other genital organ(s); Z96.651 Presence of right artificial knee joint; Z90.10 Acquired absence of unspecified breast and nipple; Z86.79 Personal history of other diseases of the circulatory system; Z98.42 Cataract extraction status, left eye; Z98.41 Cataract extraction status, right eye; Z82.49 Family history of ischemic heart disease and other diseases of the circulatory system; Z81.8 Family history of other mental and behavioral disorders
CPT/HCPCS: 36415; 51701; 70450; 71045; 71046; 80048; 80053; 81003; 83605; 85025; 85027; 85610; 85730; 87040; 87086; 87324; 87502; 93005; 93306; 94760; 96374; 99285

== ENCOUNTER 2019-06-22 08:42 | Inpatient (IN) | payer MEDICARE, BC ==
--- NOTE | 2019-06-22 09:54 | ED ---
General Adult HPI - General Chief complaint: Recheck/Abnormal Lab/Rx Stated complaint: Not feeling well Time Seen by Provider: 06/22/19 08:56 Source: family, EMS, RN notes reviewed Mode of arrival: EMS Limitations: altered mental status - History of Present Illness Initial comments: This an 83-year-old male presents emergency Department via EMS with complaints of not feeling well. Patient has a history of dementia and is normally altered. Patient's in the room giving history who states he never complaints but states today he woke up not feeling well in and stated that he did not feel good. She has noticed that he's had increase swelling of his extremities upper and lower along with a 10 pound weight gain. She patient does have a history of CHF they've recently changed his dosing of his diuretics and potassium. Patient had a cough which is chronic for him no reported fever he's been having normal bowel movements. Patient otherwise is not able to provide any further additional complaints at this time. - Related Data Home Medications Medication Instructions Recorded Confirmed Aspirin EC [Ecotrin Low Dose] 81 mg PO HS 12/23/13 01/29/19 Tamsulosin [Flomax] 0.4 mg PO BID 12/23/13 01/29/19 Mirtazapine [Remeron] 30 mg PO HS 01/14/18 01/29/19 Multivitamins, Thera [Multivitamin 1 tab PO DAILY 01/14/18 01/29/19 (formulary)] Vit C/E/Zn/Coppr/Lutein/Zeaxan 1 cap PO DAILY 01/14/18 01/29/19 [Preservision Areds 2 Softgel] Apixaban [Eliquis] 2.5 mg PO BID 04/30/18 01/29/19 Furosemide [Lasix] 20 mg PO DAILY 04/30/18 01/29/19 Levothyroxine Sodium [Synthroid] 50 mcg PO MOWETHFRSA 04/30/18 01/29/19 Potassium Chloride [Klor-Con 20] 20 meq PO DAILY 04/30/18 01/29/19 Carvedilol [Coreg] 6.25 mg PO BID 08/24/18 01/29/19 Levothyroxine Sodium [Synthroid] 75 mcg PO SUTU 08/24/18 01/29/19 Metolazone [Zaroxolyn] 1.25 mg PO DAILY 08/24/18 01/29/19 Lisinopril [Zestril] 5 mg PO HS 11/10/18 01/29/19 Calcium Polycarbophil [Fiber-Lax] 2,500 mg PO DAILY 01/29/19 01/29/19 Previous Rx's Medication Instructions Recorded Fluconazole 400 mg PO DAILY #28 tab 02/03/19 Allergies Allergy/AdvReac Type Severity Reaction Status Date / Time No Known Allergies Allergy Verified 06/22/19 10:01 Review of Systems ROS Statement: Those systems with pertinent positive or pertinent negative responses have been documented in the HPI. ROS Other: All systems not noted in ROS Statement are negative. 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 History of Any Multi-Drug Resistant Organisms: None Reported Past Surgical History: Appendectomy, Breast Surgery, Joint Replacement, Pacemaker, Prostate Surgery Additional Past Surgical History / Comment(s): BENIGN TUMOR REMOVED RT BREAST, rt knee replacement, cardioversion, DEJAN CATARACTS, thorascentesis Past Anesthesia/Blood Transfusion Reactions: No Reported Reaction Type of Cardiac Device: Permanent Pacemaker Device Placement Date:: unknown Past Psychological History: Depression Smoking Status: Never smoker Past Alcohol Use History: Rare Past Drug Use History: None Reported - Past Family History Mother Family Medical History: No Reported History Father Family Medical History: Dementia, Myocardial Infarction (NE) General Exam Limitations: altered mental status General appearance: alert, in no apparent distress Head exam: Present: atraumatic, normocephalic, normal inspection Eye exam: Present: normal appearance, PERRL, EOMI. Absent: scleral icterus, conjunctival injection, periorbital swelling ENT exam: Present: normal exam, normal oropharynx, mucous membranes moist Neck exam: Present: normal inspection, full ROM. Absent: tenderness, menin gismus, lymphadenopathy Respiratory exam: Present: decreased breath sounds. Absent: normal lung sounds bilaterally, respiratory distress, wheezes, rales, rhonchi, stridor Cardiovascular Exam: Present: regular rate, normal rhythm, normal heart sounds. Absent: systolic murmur, diastolic murmur, rubs, gallop, clicks GI/Abdominal exam: Present: soft, distended, normal bowel sounds. Absent: tenderness, guarding, rebound, rigid Extremities exam: Present: pedal edema, other (Swelling of the upper extremity is noted pulses equal bilaterally) Neurological exam: Present: alert, oriented X3 Skin exam: Present: warm, dry, intact, normal color. Absent: rash Course Vital Signs 06/22/19 06/22/19 08:47 10:15 Temperature 97.9 F Pulse Rate 60 60 Respiratory 18 18 Rate Blood Pressure 113/75 137/79 O2 Sat by Pulse 99 100 Oximetry Medical Decision Making - Medical Decision Making 83-year-old male presented for does not feel all increased swelling. Patient had some bone weight gain, large pleural effusion on the left with elevated BMP. Patient's symptoms are consistent with CHF exacerbation. Patient be admitted for further treatment and evaluation. - Lab Data Result diagrams: 06/22/19 09:50 06/22/19 09:50 Lab Results 06/22/19 06/22/19 06/22/19 Range/Units 09:50 09:50 09:50 WBC 5.1 (3.8-10.6) k/uL RBC 3.79 L (4.30-5.90) m/uL Hgb 11.2 L (13.0-17.5) gm/dL Hct 35.2 L (39.0-53.0) % MCV 92.7 (80.0-100.0) fL MCH 29.6 (25.0-35.0) pg MCHC 31.9 (31.0-37.0) g/dL RDW 15.4 (11.5-15.5) % Plt Count 151 (150-450) k/uL Neutrophils % 80 % Lymphocytes % 12 % Monocytes % 6 % Eosinophils % 1 % Basophils % 1 % Neutrophils # 4.0 (1.3-7.7) k/uL Lymphocytes # 0.6 L (1.0-4.8) k/uL Monocytes # 0.3 (0-1.0) k/uL Eosinophils # 0.1 (0-0.7) k/uL Basophils # 0.0 (0-0.2) k/uL PT (9.0-12.0) sec INR (<1.2) APTT (22.0-30.0) sec Sodium 138 (137-145) mmol/L Potassium 4.5 (3.5-5.1) mmol/L Chloride 109 H (98-107) mmol/L Carbon Dioxide 22 (22-30) mmol/L Anion Gap 7 mmol/L BUN 31 H (9-20) mg/dL Creatinine 0.95 (0.66-1.25) mg/dL Est GFR (CKD-EPI)AfAm 85 (>60 ml/min/1.73 sqM) Est GFR (CKD-EPI)NonAf 74 (>60 ml/min/1.73 sqM) Glucose 111 H (74-99) mg/dL Plasma Lactic Acid Dony 0.9 (0.7-2.0) mmol/L Calcium 9.2 (8.4-10.2) mg/dL Magnesium 2.0 (1.6-2.3) mg/dL Total Bilirubin 1.1 (0.2-1.3) mg/dL AST 27 (17-59) U/L ALT 20 (4-49) U/L Alkaline Phosphatase 114 (38-126) U/L Creatine Kinase 43 L (55-170) U/L Troponin I (0.000-0.034) ng/mL NT-Pro-B Natriuret Pep pg/mL Total Protein 6.3 (6.3-8.2) g/dL Albumin 3.3 L (3.5-5.0) g/dL 06/22/19 06/22/19 06/22/19 Range/Units 09:50 09:50 09:50 WBC (3.8-10.6) k/uL RBC (4.30-5.90) m/uL Hgb (13.0-17.5) gm/dL Hct (39.0-53.0) % MCV (80.0-100.0) fL MCH (25.0-35.0) pg MCHC (31.0-37.0) g/dL RDW (11.5-15.5) % Plt Count (150-450) k/uL Neutrophils % % Lymphocytes % % Monocytes % % Eosinophils % % Basophils % % Neutrophils # (1.3-7.7) k/uL Lymphocytes # (1.0-4.8) k/uL Monocytes # (0-1.0) k/uL Eosinophils # (0-0.7) k/uL Basophils # (0-0.2) k/uL PT 11.8 (9.0-12.0) sec INR 1.2 H (<1.2) APTT 26.1 (22.0-30.0) sec Sodium (137-145) mmol/L Potassium (3.5-5.1) mmol/L Chloride (98-107) mmol/L Carbon Dioxide (22-30) mmol/L Anion Gap mmol/L BUN (9-20) mg/dL Creatinine (0.66-1.25) mg/dL Est GFR (CKD-EPI)AfAm (>60 ml/min/1.73 sqM) Est GFR (CKD-EPI)NonAf (>60 ml/min/1.73 sqM) Glucose (74-99) mg/dL Plasma Lactic Acid Dony (0.7-2.0) mmol/L Calcium (8.4-10.2) mg/dL Magnesium (1.6-2.3) mg/dL Total Bilirubin (0.2-1.3) mg/dL AST (17-59) U/L ALT (4-49) U/L Alkaline Phosphatase (38-126) U/L Creatine Kinase (55-170) U/L Troponin I <0.012 (0.000-0.034) ng/mL NT-Pro-B Natriuret Pep 2880 pg/mL Total Protein (6.3-8.2) g/dL Albumin (3.5-5.0) g/dL Disposition Clinical Impression: Acute exacerbation of CHF (congestive heart failure) Disposition: ADMITTED IP TO THIS [facility] Condition: Serious Referrals: Cullen Morel MD [Primary Care Provider] - 1-2 days
[2019-06-22 10:13] LABS: Basophils % (A) 1 %; Eosinophils # (A) 0.1 k/uL (0-0.7); Eosinophils % (A) 1 %; HCT 35.2 % (39.0-53.0); HGB 11.2 gm/dL (13.0-17.5); Lymphocytes # (A) 0.6 k/uL (1.0-4.8); Lymphocytes % (A) 12 %; MCH 29.6 pg (25.0-35.0); MCHC 31.9 g/dL (31.0-37.0); MCV 92.7 fL (80.0-100.0); Mean Platelet Volume 8.1; Monocytes # (A) 0.3 k/uL (0-1.0); Monocytes % (A) 6 %; Neutrophils % (A) 80 %; Platelet Count 151 k/uL (150-450); RBC 3.79 m/uL (4.30-5.90); RDW 15.4 % (11.5-15.5); WBC 5.1 k/uL (3.8-10.6)
--- NOTE | 2019-06-22 10:19 | XR ---
EXAMINATION TYPE: XR chest 2V DATE OF EXAM: 06/22/2019 COMPARISON: 02/04/2019 HISTORY: Weakness and altered mental status TECHNIQUE: Frontal and lateral views of the chest are obtained. FINDINGS: There is an increasing moderate left pleural effusion and associated left sided airspace d isease. Mild pulmonary vascular congestion. Right lung is clear. Cardiomediastinal silhouette is part ially obscured. Single lead left-sided cardiac device is seen. There is diffuse osseous demineralizat ion. IMPRESSION: Increasing moderate left pleural effusion and associated left-sided airspace disease.
[2019-06-22 10:25] LABS: INR 1.2 (<1.2); Partial Thromboplastin Time 26.1 sec (22.0-30.0); Prothrombin Time 11.8 sec (9.0-12.0)
[2019-06-22 10:27] LABS: Albumin 3.3 g/dL (3.5-5.0); Calcium 9.2 mg/dL (8.4-10.2); Potassium 4.5 mmol/L (3.5-5.1); Total Bilirubin 1.1 mg/dL (0.2-1.3); Total Protein 6.3 g/dL (6.3-8.2)
[2019-06-22] MEDS ORDERED: FUROSEMIDE 10 MG/ML 4 ML VIAL IV STA (11:03)
[2019-06-22] MEDS ORDERED: ASPIRIN 325 MG TAB PO STA (11:35)
--- NOTE | 2019-06-22 13:47 | P.HPIM ---
History of Present Illness This is a pleasant 83 years old male with past medical history of heart failure, dementia, atrial fibrillation, hypertension, prostate problems status post surgery: Status post permanent pacemaker, hypothyroidism. Patient could not provide information because of his dementia, so information was taken from staff from records, as per staff patient was transferred because the felt he's and well, as well as because of leg swelling and with a 10 pound weight gain. Hemodynamically stable and is saturating 99% on room air. Patient is afebrile. Labs are unremarkable including CBC, BMP, INR, liver enzymes. EKG: Paced rhythm at 61 bpm. Chest x-ray showing venous congestion and cardiomegaly suspicious for CHF, possible left pleural effusion by radiologist. In the emergency room patient was started on Lasix and aspirin. Review of Systems n/a 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, shelter memory loss History of Any Multi-Drug Resistant Organisms: None Reported Past Surgical History: Appendectomy, Breast Surgery, Joint Replacement, Pacemaker, Prostate Surgery Additional Past Surgical History / Comment(s): BENIGN TUMOR REMOVED RT BREAST, rt knee replacement, cardioversion, DEJAN CATARACTS, thorascentesis Past Anesthesia/Blood Transfusion Reactions: No Reported Reaction Type of Cardiac Device: Permanent Pacemaker Device Placement Date:: unknown Past Psychological History: Depression Smoking Status: Never smoker Past Alcohol Use History: Rare Past Drug Use History: None Reported - Past Family History Mother Family Medical History: No Reported History Father Family Medical History: Dementia, Myocardial Infarction ([place]) Medications and Allergies Home Medications Medication Instructions Recorded Confirmed Type Aspirin EC [Ecotrin Low Dose] 81 mg PO HS 12/23/13 06/22/19 History Tamsulosin [Flomax] 0.4 mg PO BID 12/23/13 06/22/19 History Mirtazapine [Remeron] 15 mg PO HS 01/14/18 06/22/19 History Vit C/E/Zn/Coppr/Lutein/Zeaxan 1 cap PO DAILY 01/14/18 06/22/19 History [Preservision Areds 2 Softgel] Apixaban [Eliquis] 2.5 mg PO BID 04/30/18 06/22/19 History Furosemide [Lasix] 20 mg PO DAILY 04/30/18 06/22/19 History Levothyroxine Sodium [Synthroid] 50 mcg PO MOTUTHFRSA 04/30/18 06/22/19 History Carvedilol [Coreg] 6.25 mg PO BID 08/24/18 06/22/19 History Levothyroxine Sodium [Synthroid] 75 mcg PO SUWE 08/24/18 06/22/19 History Metolazone [Zaroxolyn] 1.25 mg PO DAILY 08/24/18 06/22/19 History Lisinopril [Zestril] 5 mg PO HS 11/10/18 06/22/19 History Calcium Polycarbophil [Fiber-Lax] 2,500 mg PO DAILY 01/29/19 06/22/19 History Multivit-Min/FA/Lycopen/Lutein 1 tab PO DAILY 06/22/19 06/22/19 History [Centrum Silver Tablet] Potassium Chloride Oral Liquid 20 meq PO DAILY 06/22/19 06/22/19 History Allergies Allergy/AdvReac Type Severity Reaction Status Date / Time No Known Allergies Allergy Verified 06/22/19 11:43 Physical Exam Vitals: Vital Signs Temp Pulse Resp BP Pulse Ox 06/22/19 12:58 62 16 162/79 99 06/22/19 11:49 62 16 142/79 99 06/22/19 10:15 60 18 137/79 100 06/22/19 08:47 97.9 F 60 18 113/75 99 Intake and Output 06/21/19 06/22/19 06/22/19 22:59 06:59 14:59 Other: Weight 94.347 kg -GENERAL: The patient is alert and oriented x0, not in any acute distress. Well developed, well nourished. HEENT: Pupils are round and equally reacting to light. EOMI. No scleral icterus. No conjunctival pallor. Normocephalic, atraumatic. No pharyngeal erythema. No thyromegaly. -CARDIOVASCULAR: S1 and S2 present. No murmurs, rubs, or gallops. PULMONARY: Chest is clear to auscultation, no wheezing or crackles. Decreased breath sounds on the left side, bilateral basal crepitation ABDOMEN: Soft, nontender, nondistended, normoactive bowel sounds. No palpable organomegaly. MUSCULOSKELETAL: No joint swelling or deformity. -EXTREMITIES: No cyanosis, clubbing,. 2+ leg edema NEUROLOGICAL: Gross neurological examination did not reveal any focal deficits. SKIN: No rashes. No petechiae Results CBC & Chem 7: 06/22/19 09:50 06/22/19 09:50 Labs: Abnormal Lab Results - Last 24 Hours (Table) 06/22/19 06/22/19 06/22/19 Range/Units 09:50 09:50 09:50 RBC 3.79 L (4.30-5.90) m/uL Hgb 11.2 L (13.0-17.5) gm/dL Hct 35.2 L (39.0-53.0) % Lymphocytes # 0.6 L (1.0-4.8) k/uL INR 1.2 H (<1.2) Chloride 109 H (98-107) mmol/L BUN 31 H (9-20) mg/dL Glucose 111 H (74-99) mg/dL Creatine Kinase 43 L (55-170) U/L Albumin 3.3 L (3.5-5.0) g/dL Assessment and Plan Assessment: Chronic heart failure underwent chronic atrial fibrillation, status post pacemaker Hypertension Dementia Hypothyroidism Depression, not in active tissue History of prostate problems status post surgery Plan: This is a pleasant 83 years old male who presents with acute CHF exacerbation and left pleural effusion. Continue with diuretics with IV Lasix, continue with Coreg and lisinopril. Labs and medication were reviewed.. Continue same treatment. Continue with symptomatic treatment. Resume home medication. Monitor lytes and vitals. DVT and GI prophylaxis. Further recommendations of the clinical course of the patient DVT prophylaxis: Eliquis GI Prophylaxis: Pepcid PT/OT: Pending Prognosis is guarded
[2019-06-22] MEDS: LEVOTHYROXINE 50 MCG TAB PO SCH (15:54)
[2019-06-22] MEDS: CARVEDILOL 6.25 MG TAB PO SCH (18:57)
[2019-06-22] MEDS: MIRTAZAPINE 15 MG TAB PO SCH (20:58)
[2019-06-22] MEDS: TAMSULOSIN 0.4 MG CAP.ER.24H PO SCH (20:58)
[2019-06-22] MEDS: FUROSEMIDE 10 MG/ML 4 ML VIAL IV SCH (20:59)
[2019-06-22] MEDS: APIXABAN 2.5 MG TABLET PO SCH (20:59)
[2019-06-22] MEDS: LISINOPRIL 5 MG TAB PO SCH (20:59)
[2019-06-23 05:54] LABS: Basophils % (A) 0 %; Eosinophils # (A) 0.1 k/uL (0-0.7); Eosinophils % (A) 1 %; HCT 31.8 % (39.0-53.0); HGB 10.2 gm/dL (13.0-17.5); Lymphocytes # (A) 0.8 k/uL (1.0-4.8); Lymphocytes % (A) 13 %; MCH 29.5 pg (25.0-35.0); MCHC 32.1 g/dL (31.0-37.0); MCV 91.9 fL (80.0-100.0); Mean Platelet Volume 7.9; Monocytes # (A) 0.5 k/uL (0-1.0); Monocytes % (A) 8 %; Neutrophils # (A) 4.6 k/uL (1.3-7.7); Neutrophils % (A) 76 %; Platelet Count 179 k/uL (150-450); RBC 3.46 m/uL (4.30-5.90); RDW 15.4 % (11.5-15.5); WBC 6.1 k/uL (3.8-10.6)
[2019-06-23 06:03] LABS: Potassium 3.9 mmol/L (3.5-5.1)
[2019-06-23] MEDS: CARVEDILOL 6.25 MG TAB PO SCH ×2 (06:29→16:47)
[2019-06-23] MEDS: LEVOTHYROXINE 75 MCG TAB PO SCH (06:29)
--- NOTE | 2019-06-23 08:01 | P.PN ---
Subjective This is a pleasant 83 years old male with past medical history of heart failure, dementia, atrial fibrillation, hypertension, prostate problems status post surgery: Status post permanent pacemaker, hypothyroidism. Patient could not provide information because of his dementia, so information was taken from staff from records, as per staff patient was transferred because the felt he's and well, as well as because of leg swelling and with a 10 pound weight gain. Hemodynamically stable and is saturating 99% on room air. Patient is afebrile. Labs are unremarkable including CBC, BMP, INR, liver enzymes. EKG: Paced rhythm at 61 bpm. Chest x-ray showing venous congestion and cardiomegaly suspicious for CHF, possible left pleural effusion by radiologist. In the emergency room patient was started on Lasix and aspirin. 06/23/2019 As per staff patient lives with , his independent however he is confused and usually he come to get with one wart only. This morning patient is awake however he does not follow commands and when asked questions he mumbles. He does not look in distress, is slightly tachypneic. Vitas looks stable and he is saturating 97% on room air. Labs from today looks stable with WBC 6.1K, hemoglobin 10.2, sodium 136, creatinine 1.0, glucose controls. He has Albright catheter and 600 mL was drained out. His legs are still swollen. Discussed with the staff to obtain urine analysis, repeat chest x-ray. Also a sked for physical therapy evaluation. Check chest x-ray and pro calcitonin. And TSH Patient currently on Lasix 40 mg twice daily, metolazone 1.25 mg daily and Eliquis for DVT prophylaxis. Review of system: N/a Objective - Vital Signs Vital signs: Vital Signs Temp 98.1 F 06/23/19 04:00 Pulse 67 06/23/19 04:00 Resp 18 06/23/19 04:00 BP 122/87 06/23/19 04:00 Pulse Ox 97 06/23/19 04:00 Intake & Output 06/22/19 06/23/19 06/23/19 18:59 06:59 18:59 Intake Total 370 Output Total 600 Balance -230 Weight 94.347 kg Intake: Oral 370 Output: Urine 600 Other: Voiding Method Incontinent Diaper Incontinent # Voids 1 # Bowel Movements 0 - Exam -GENERAL: The patient is alert and oriented x0, not in any acute distress. Well developed, well nourished. HEENT: Pupils are round and equally reacting to light. EOMI. No scleral icterus. No conjunctival pallor. Normocephalic, atraumatic. No pharyngeal erythema. No thyromegaly. -CARDIOVASCULAR: S1 and S2 present. No murmurs, rubs, or gallops. PULMONARY: Chest is clear to auscultation, no wheezing or crackles. Decreased breath sounds on the left side, bilateral basal crepitation ABDOMEN: Soft, nontender, nondistended, normoactive bowel sounds. No palpable organomegaly. MUSCULOSKELETAL: No joint swelling or deformity. -EXTREMITIES: No cyanosis, clubbing,. 2+ leg edema NEUROLOGICAL: Gross neurological examination did not reveal any focal deficits. SKIN: No rashes. No petechiae - Labs CBC & Chem 7: 06/23/19 05:38 06/23/19 05:38 Labs: Abnormal Lab Results - Last 24 Hours (Table) 06/22/19 06/22/19 06/22/19 Range/Units 09:50 09:50 09:50 RBC 3.79 L (4.30-5.90) m/uL Hgb 11.2 L (13.0-17.5) gm/dL Hct 35.2 L (39.0-53.0) % Lymphocytes # 0.6 L (1.0-4.8) k/uL INR 1.2 H (<1.2) Sodium (137-145) mmol/L Chloride 109 H (98-107) mmol/L BUN 31 H (9-20) mg/dL Glucose 111 H (74-99) mg/dL Creatine Kinase 43 L (55-170) U/L Albumin 3.3 L (3.5-5.0) g/dL 06/23/19 06/23/19 Range/Units 05:38 05:38 RBC 3.46 L (4.30-5.90) m/uL Hgb 10.2 L (13.0-17.5) gm/dL Hct 31.8 L (39.0-53.0) % Lymphocytes # 0.8 L (1.0-4.8) k/uL INR (<1.2) Sodium 136 L (137-145) mmol/L Chloride 108 H (98-107) mmol/L BUN 34 H (9-20) mg/dL Glucose 118 H (74-99) mg/dL Creatine Kinase (55-170) U/L Albumin (3.5-5.0) g/dL Assessment and Plan Assessment: Chronic heart failure underwent chronic atrial fibrillation, status post pacemaker Hypertension Dementia Hypothyroidism Depression, not in active tissue History of prostate problems status post surgery Plan: This is a pleasant 83 years old male who presents with acute CHF exacerbation and left pleural effusion. Continue with diuretics with IV Lasix, continue with Coreg and lisinopril. Labs and medication were reviewed.. Continue same treatment. Continue with symptomatic treatment. Resume home medication. Monitor lytes and vitals. DVT and GI prophylaxis. Further recommendations of the clinical course of the myra rubalcava DVT prophylaxis: Eliquis GI Prophylaxis: Pepcid PT/OT: Pending Prognosis is guarded
[2019-06-23] MEDS: POTASSIUM BICARBONATE/CIT AC 20 MEQ TABLET.EFF PO SCH (08:24)
[2019-06-23] MEDS: METOLAZONE 2.5 MG TAB PO SCH (08:24)
[2019-06-23] MEDS: FUROSEMIDE 10 MG/ML 4 ML VIAL IV SCH ×2 (08:24→22:00)
[2019-06-23] MEDS: TAMSULOSIN 0.4 MG CAP.ER.24H PO SCH ×2 (08:24→23:06)
[2019-06-23] MEDS: APIXABAN 2.5 MG TABLET PO SCH ×2 (08:24→22:43)
[2019-06-23] MEDS: ASPIRIN 325 MG TAB PO SCH (08:24)
--- NOTE | 2019-06-23 08:56 | P.CRDCN ---
History of Present Illness Consult date: 06/23/19 Chief complaint: Increasing in the shortness of breath History of present illness: This is a pleasant 83-year-old gentleman who is somewhat poor historian was underlying dementia with a past medical history significant for congestive heart failure secondary to diastolic dysfunction, long-standing persistent atrial fibrillation on oral anticoagulation, as well as history of permanent pacemaker implantation, was brought to the hospital by his family for further evaluation of increasing in the shortness of breath. The patient somewhat is a poor historian and the history was taken from the chart. The patient was unable to provide any information. Apparently he was experiencing increasing in his shortness of breath. Beside that he developed severe bilateral lower extremities pitting edema. When he was seen this morning he was sitting in bed at 45 angle. The patient also noticed that he gained about 10 pounds. No indication that the patient didn't have any symptoms of chest pain or chest discomfort, dizziness, heart racing, or syncope. When he presented to the hospital the chest x-ray showed moderate pleural effusion. The EKG showed underlying atrial fibrillation with controlled heart rate. The patient underwent permanent pacemaker implantation back in 2019. The last echocardiogram from 2019 revealed normal left ventricle systolic function with evidence of mild aortic stenosis. At this point, I am going to DC the Lasix by mouth and start the patient on Lasix IV. Beside that continue monitoring the kidney function and electrolytes. Continue oral anticoagulation. Follow-up with the patient. Please note that the patient might be not a good candidate to have any oral anticoagulation if he is high risk of falling and bleeding. 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 Patient's relates that the time there was some difficulty came back and stopped hunting. There are no animals in the home. He is a tobacco smoker or alcohol user. Smoking Status: Never smoker Past Alcohol Use History: Rare Past Drug Use History: None Reported - Past Family History Mother Family Medical History: No Reported History Father Family Medical History: Dementia, Myocardial Infarction ([place]) Medications and Allergies Home Medications Medication Instructions Recorded Confirmed Type Aspirin EC [Ecotrin Low Dose] 81 mg PO HS 12/23/13 06/22/19 History Tamsulosin [Flomax] 0.4 mg PO BID 12/23/13 06/22/19 History Mirtazapine [Remeron] 15 mg PO HS 01/14/18 06/22/19 History Vit C/E/Zn/Coppr/Lutein/Zeaxan 1 cap PO DAILY 01/14/18 06/22/19 History [Preservision Areds 2 Softgel] Apixaban [Eliquis] 2.5 mg PO BID 04/30/18 06/22/19 History Furosemide [Lasix] 20 mg PO DAILY 04/30/18 06/22/19 History Levothyroxine Sodium [Synthroid] 50 mcg PO MOTUTHFRSA 04/30/18 06/22/19 History Carvedilol [Coreg] 6.25 mg PO BID 08/24/18 06/22/19 History Levothyroxine Sodium [Synthroid] 75 mcg PO SUWE 08/24/18 06/22/19 History Metolazone [Zaroxolyn] 1.25 mg PO DAILY 08/24/18 06/22/19 History Lisinopril [Zestril] 5 mg PO HS 11/10/18 06/22/19 History Calcium Polycarbophil [Fiber-Lax] 2,500 mg PO DAILY 01/29/19 06/22/19 History Multivit-Min/FA/Lycopen/Lutein 1 tab PO DAILY 06/22/19 06/22/19 History [Centrum Silver Tablet] Potassium Chloride Oral Liquid 20 meq PO DAILY 06/22/19 06/22/19 History Allergies Allergy/AdvReac Type Severity Reaction Status Date / Time No Known Allergies Allergy Verified 06/22/19 11:43 Physical Exam Vitals: Vital Signs Temp Pulse Pulse Resp BP BP BP 02/26/20 08:00 98.2 F 69 22 102/68 06/23/19 04:00 98.1 F 67 18 122/87 06/23/19 00:07 98.7 F 57 L 18 131/76 06/22/19 20:45 98.3 F 61 16 101/60 06/22/19 17:45 98.2 F 66 18 155/92 06/22/19 16:00 66 18 06/22/19 14:09 66 18 06/22/19 13:52 98.2 F 66 18 155/92 06/22/19 12:58 62 16 162/79 06/22/19 11:49 62 16 142/79 06/22/19 10:15 60 18 137/79 Pulse Ox 06/23/19 08:00 94 L 06/23/19 04:00 97 06/23/19 00:07 94 L 06/22/19 20:45 94 L 06/22/19 17:45 98 06/22/19 16:00 06/22/19 14:09 06/22/19 13:52 98 06/22/19 12:58 99 06/22/19 11:49 99 06/22/19 10:15 100 Intake and Output 06/22/19 06/23/19 06/23/19 22:59 06:59 14:59 Intake Total 370 80 Output Total 0 600 Balance 370 -600 80 Intake: Oral 370 80 Output: Urine 0 600 Other: Voiding Method Diaper Diaper Incontinent Incontinent # Bowel Movements 0 Weight 94.347 kg - Constitutional General appearance: no acute distress - Respiratory Respiratory: bilateral: diminished - Cardiovascular Rhythm: irregularly irregular Heart sounds: normal: S1, S2 Abnormal Heart Sounds: systolic murmur Results 06/23/19 05:38 06/23/19 05:38 Cardiac Enzymes 06/22/19 06/22/19 Range/Units 09:50 09:50 AST 27 (17-59) U/L Troponin I <0.012 (0.000-0.034) ng/mL Coagulation 06/22/19 Range/Units 09:50 PT 11.8 (9.0-12.0) sec APTT 26.1 (22.0-30.0) sec CBC 06/22/19 06/23/19 Range/Units 09:50 05:38 WBC 5.1 6.1 (3.8-10.6) k/uL RBC 3.79 L 3.46 L (4.30-5.90) m/uL Hgb 11.2 L 10.2 L (13.0-17.5) gm/dL Hct 35.2 L 31.8 L (39.0-53.0) % Plt Count 151 179 (150-450) k/uL Comprehensive Metabolic Panel 06/22/19 06/23/19 Range/Units 09:50 05:38 Sodium 138 136 L (137-145) mmol/L Potassium 4.5 3.9 (3.5-5.1) mmol/L Chloride 109 H 108 H (98-107) mmol/L Carbon Dioxide 22 23 (22-30) mmol/L BUN 31 H 34 H (9-20) mg/dL Creatinine 0.95 1.05 (0.66-1.25) mg/dL Glucose 111 H 118 H (74-99) mg/dL Calcium 9.2 9.0 (8.4-10.2) mg/dL AST 27 (17-59) U/L ALT 20 (4-49) U/L Alkaline Phosphatase 114 (38-126) U/L Total Protein 6.3 (6.3-8.2) g/dL Albumin 3.3 L (3.5-5.0) g/dL Current Medications Generic Name Dose Route Start Last Admin Trade Name Freq PRN Reason Stop Dose Admin Apixaban 2.5 mg 06/22/19 21:00 06/23/19 08:24 Eliquis PO 2.5 mg BID MALKA Administration Aspirin 325 mg 06/23/19 09:00 06/23/19 08:24 Aspirin PO 325 mg DAILY MALKA Administration Carvedilol 6.25 mg 06/22/19 17:30 06/23/19 06:29 Coreg PO 6.25 mg BID-W/MEALS MALKA Administration Furosemide 40 mg 06/22/19 21:00 06/23/19 08:24 Lasix IV 40 mg Q12H MALKA Administration Levothyroxine Sodium 50 mcg 06/22/19 13:45 06/22/19 15:54 Synthroid PO 50 mcg [id number] MALKA Administration Levothyroxine Sodium 75 mcg 06/23/19 06:30 06/23/19 06:29 Synthroid PO 75 mcg [id number] MALKA Administration Lisinopril 5 mg 06/22/19 21:00 06/22/19 20:59 Zestril PO 5 mg HS MALKA Administration Metolazone 1.25 mg 06/23/19 09:00 06/23/19 08:24 Zaroxolyn PO 1.25 mg DAILY MALKA Administration Mirtazapine 15 mg 06/22/19 21:00 06/22/19 20:58 Remeron PO 15 mg HS MALKA Administration Potassium Bicarbonate 20 meq 06/23/19 09:00 06/23/19 08:24 K-Lyte PO 20 meq DAILY MALKA Administration Tamsulosin HCl 0.4 mg 06/22/19 21:00 06/23/19 08:24 Flomax PO 0.4 mg BID MALAK Administration Intake and Output 06/22/19 06/23/19 06/23/19 22:59 06:59 14:59 Intake Total 370 80 Output Total 0 600 Balance 370 -600 80 Intake: Oral 370 80 Output: Urine 0 600 Other: Voiding Method Diaper Diaper Incontinent Incontinent # Bowel Movements 0 Weight 94.347 kg 06/23/19 05:38 06/23/19 05:38 Assessment and Plan Assessment: Assessment #1 long-standing persistent atrial fibrillation was controlled heart rate #2 congestive heart failure exacerbation secondary to diastole dysfunction #3 mild aortic stenosis #4 permanent pacemaker #5 multiple comorbid conditions Plan #1 DC Lasix be on start the patient on Lasix IV #2 continue monitor the kidney function and electrolytes #3 no need to repeat the echocardiogram #4 follow-up with the patient Thank you for allowing us participate in his care
--- NOTE | 2019-06-23 09:26 | XR ---
EXAMINATION TYPE: XR chest 1V DATE OF EXAM: 06/23/2019 COMPARISON: 06/22/2019 INDICATION: Follow-up weakness acute mental status change TECHNIQUE: Single frontal view of the chest is obtained. FINDINGS: The heart size is enlarged.. The pulmonary vasculature is normal. There is opacification of the left lower lobe. There is silhouetting left diaphragm. Moderate left pl eural effusion is likely present. There may be some slight improvement of the left upper lobe infiltr ate. The osseous structures visualized are normal. Pacemaker overlies left chest. IMPRESSION: 1. Moderate left pleural effusion and/or infiltrate. Findings appear similar to comparison. 2. Cardiomegaly
--- NOTE | 2019-06-23 09:45 | US ---
EXAMINATION TYPE: US chest DATE OF EXAM: 06/23/2019 COMPARISON: Chest x-ray same date CLINICAL HISTORY: L-pleural effusion. TECHNIQUE: Targeted ultrasound of the posterior lower left hemithorax EXAM MEASUREMENTS: Left Pleural Effusion pocket size: 6.8 cm Left skin surface to fluid distance: 3.1 cm Left side MARKED for possible thoracentesis outside the dept. Pulmonologists are able to review the images in the patient?s EMR. Scanning is limited. IMPRESSIONS: Left Pleural effusion
[2019-06-23 12:34] LABS: Appearance,Urine Clear (Clear); Bilirubin,Urine Negative (Negative); Blood,Urine Negative (Negative); Color,Urine Yellow; Glucose,Urine (UA) Negative (Negative); Ketones,Urine Negative (Negative); Leukocyte Esterase,Urine Negative (Negative); Nitrite,Urine Negative (Negative); Protein,Urine Negative (Negative); Urobilinogen,Urine <2.0 mg/dL (<2.0)
--- NOTE | 2019-06-23 16:02 | P.CNPUL ---
History of Present Illness Consult date: 06/23/19 Requesting physician: Jose Juan Hernadez Reason for consult: pleural effusion Chief complaint: Shortness of breath. History of present illness: This is an 83-year-old white male known history of dementia, chronic diastolic congestive heart failure and long-standing atrial fibrillation on oral antico agulation therapy. History of permanent pacemaker implantation. Patient was admitted on 06/22/2019, mostly with symptoms of increased shortness of breath. Patient cannot give any history, unable to provide any information. Apparently he was noted to have worsening shortness of breath over the last few days, and increased swelling of the lower extremities with pitting edema. Weight went up by 10 pounds. Patient had no chest pain, no palpitations, no syncope, upon evaluation in the ER, patient was noted to have bilateral pleural effusions, left more so than right. His EKG showed mostly atrial fibrillation with controlled heart rate. Previous echocardiogram showed normal LV function and mild aortic stenosis. Patient was placed on multiple diuretics and on Lasix. I was asked to see the patient on consultation for possible left sided thoracentesis. Patient is on anticoagulation therapy, he seems to be very comfortable, he is actually on room air. His diuretics have been increased, hence I plan to continue medical management, and if no improvement with medical management then we would consider left sided thoracentesis. Ultrasound showed a 6.5 cm pocket, could be drained, however prefer to treat with diuretics before thoracentesis. 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 Patient's relates that the time there was some difficulty came back and stopped hunting. There are no animals in the home. He is a tobacco smoker or alcohol user. Smoking Status: Never smoker Past Alcohol Use History: Rare Past Drug Use History: None Reported - Past Family History Mother Family Medical History: No Reported History Father Family Medical History: Dementia, Myocardial Infarction ([place]) Medications and Allergies Home Medications Medication Instructions Recorded Confirmed Type Aspirin EC [Ecotrin Low Dose] 81 mg PO HS 12/23/13 06/22/19 History Tamsulosin [Flomax] 0.4 mg PO BID 12/23/13 06/22/19 History Mirtazapine [Remeron] 15 mg PO HS 01/14/18 06/22/19 History Vit C/E/Zn/Coppr/Lutein/Zeaxan 1 cap PO DAILY 01/14/18 06/22/19 History [Preservision Areds 2 Softgel] Apixaban [Eliquis] 2.5 mg PO BID 04/30/18 06/22/19 History Furosemide [Lasix] 20 mg PO DAILY 04/30/18 06/22/19 History Levothyroxine Sodium [Synthroid] 50 mcg PO MOTUTHFRSA 04/30/18 06/22/19 History Carvedilol [Coreg] 6.25 mg PO BID 08/24/18 06/22/19 History Levothyroxine Sodium [Synthroid] 75 mcg PO SUWE 08/24/18 06/22/19 History Metolazone [Zaroxolyn] 1.25 mg PO DAILY 08/24/18 06/22/19 History Lisinopril [Zestril] 5 mg PO HS 11/10/18 06/22/19 History Calcium Polycarbophil [Fiber-Lax] 2,500 mg PO DAILY 01/29/19 06/22/19 History Multivit-Min/FA/Lycopen/Lutein 1 tab PO DAILY 06/22/19 06/22/19 History [Centrum Silver Tablet] Potassium Chloride Oral Liquid 20 meq PO DAILY 06/22/19 06/22/19 History Allergies Allergy/AdvReac Type Severity Reaction Status Date / Time No Known Allergies Allergy Verified 06/22/19 11:43 Physical Exam Vitals: Vital Signs Temp Pulse Resp BP BP Pulse Ox 06/23/19 11:31 98.2 F 66 22 123/74 96 06/23/19 08:00 98.2 F 69 22 102/68 94 L 06/23/19 04:00 98.1 F 67 18 122/87 97 06/23/19 00:07 98.7 F 57 L 18 131/76 94 L 06/22/19 20:45 98.3 F 61 16 101/60 94 L 06/22/19 17:45 98.2 F 66 18 155/92 98 06/22/19 16:00 66 18 Intake and Output 06/23/19 06/23/19 06/23/19 06:59 14:59 22:59 Intake Total 140 Output Total 600 350 Balance -600 -210 Intake: Oral 140 Output: Urine 600 350 Other: Voiding Method Diaper Incontinent Incontinent Physical Exam: Revealed 83-year-old white male confused, in no distress. Alert but not oriented. Head: Atraumatic, normocephalic. HEENT:[Neck is supple.] [No neck masses.] [No thyromegaly.] [No JVD.] PERRLA, EOMI, no icterus, moist mucous membranes. Chest: [Diminished breath sound on dullness mostly at the left base, no crackles or rhonchi or wheezes. Symmetrical chest expansion. Cardiac Exam: Irregular irregular rhythm. [Normal S1 and S2, no S3 gallop, 2/6 systolic murmur thought the precordium. Abdomen: [Soft, nontender, no megaly, no rebound, no guarding, normal bowel sounds.] Extremities: [No clubbing, 2+ bipedal edema, no cyanosis.] Neurological Exam: Awake, follows simple instructions, mental status is poor. Patient seems to be confused, and not oriented. Skin: No rashes, no petechiae Psychiatric: Blunted affect, poor mental status and poor insight and judgment. Lymphatics: No lymphadenopathy. Results - Laboratory Findings CBC and BMP: 06/23/19 05:38 06/23/19 05:38 PT/INR, D-dimer PT 11.8 sec (9.0-12.0) 06/22/19 09:50 INR 1.2 (<1.2) H 06/22/19 09:50 Abnormal lab findings: Abnormal Labs 06/22/19 06/22/19 06/22/19 09:50 09:50 09:50 RBC 3.79 L Hgb 11.2 L Hct 35.2 L Lymphocytes # 0.6 L INR 1.2 H Sodium Chloride 109 H BUN 31 H Glucose 111 H Creatine Kinase 43 L Albumin 3.3 L 06/23/19 06/23/19 05:38 05:38 RBC 3.46 L Hgb 10.2 L Hct 31.8 L Lymphocytes # 0.8 L INR Sodium 136 L Chloride 108 H BUN 34 H Glucose 118 H Creatine Kinase Albumin - Diagnostic Findings Chest x-ray: image reviewed (As noted in HPI.) CT scan - chest: image reviewed (As noted in HPI.) Assessment and Plan Assessment: Impression: Acute on chronic diastolic congestive heart failure. Bilateral pleural effusion secondary to CHF. As above. Left more so than right. History of dementia. Chronic atrial fibrillation and previous pacemaker implantation. On anticoagulation therapy. History of hypothyroidism. History of depression. Benign essential hypertension. Recommendation: Continue Eliquis. Continue diuretics, patient is now on Lasix 40 mg IV push every 12 hours. Continue Zaroxolyn at 1.25 mg daily. Strict I's and O's, and monitor daily weights. We'll consider thoracentesis only if the patient does not improve with medical therapy. We'll continue to follow Time with Patient: Greater than 30
[2019-06-23 22:21] LABS: Glucose,Whole Blood 140 mg/dL (75-99)
[2019-06-23] MEDS: LISINOPRIL 5 MG TAB PO SCH (22:43)
[2019-06-23] MEDS: MIRTAZAPINE 15 MG TAB PO SCH (23:06)
[2019-06-24 06:40] LABS: Calcium 8.7 mg/dL (8.4-10.2)
[2019-06-24 06:50] LABS: Potassium 3.8 mmol/L (3.5-5.1)
[2019-06-24] MEDS: CARVEDILOL 6.25 MG TAB PO SCH ×2 (06:51→16:46)
[2019-06-24] MEDS: LEVOTHYROXINE 50 MCG TAB PO SCH (06:51)
--- NOTE | 2019-06-24 07:53 | P.PN ---
Subjective This is a pleasant 83 years old male with past medical history of heart failure, dementia, atrial fibrillation, hypertension, prostate problems status post surgery: Status post permanent pacemaker, hypothyroidism. Patient could not provide information because of his dementia, so information was taken from staff from records, as per staff patient was transferred because the felt he's and well, as well as because of leg swelling and with a 10 pound weight gain. Hemodynamically stable and is saturating 99% on room air. Patient is afebrile. Labs are unremarkable including CBC, BMP, INR, liver enzymes. EKG: Paced rhythm at 61 bpm. Chest x-ray showing venous congestion and cardiomegaly suspicious for CHF, possible left pleural effusion by radiologist. In the emergency room patient was started on Lasix and aspirin. 06/23/2019 As per staff patient lives with , his independent however he is confused and usually he come to get with one wart only. This morning patient is awake however he does not follow commands and when asked questions he mumbles. He does not look in distress, is slightly tachypneic. Vitas looks stable and he is saturating 97% on room air. Labs from today looks stable with WBC 6.1K, hemoglobin 10.2, sodium 136, creatinine 1.0, glucose controls. He has Albright catheter and 600 mL was drained out. His legs are still swollen. Discussed with the staff to obtain urine analysis, repeat chest x-ray. Also a sked for physical therapy evaluation. Check chest x-ray and pro calcitonin. And TSH Patient currently on Lasix 40 mg twice daily, metolazone 1.25 mg daily and Eliquis for DVT prophylaxis. 06/24/2019 Patient is more alert and comfortable today. No tachypnea, he barely answers with one wart with looks like his baseline. He follows simple commands at times. His blood pressure 113/61, heart rate 60, patient is afebrile. No leukocytosis. His creatinine is slightly trended up to 1.27, sodium 135. 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 Also he is on metolazone 1.25 mg daily. Also is on aspirin and Eliquis. Pulmonary input is appreciated for left pleural effusion, they recommended to continue with medical therapy for now and no plan for thoracocentesis. Patient may benefit from ECF for rehab on discharge Objective - Vital Signs Vital signs: Vital Signs Temp 98 F 06/24/19 04:00 Pulse 60 06/24/19 04:00 Resp 18 06/24/19 04:00 BP 113/61 06/24/19 04:00 Pulse Ox 95 06/24/19 04:00 Intake & Output 06/23/19 06/24/19 06/24/19 18:59 06:59 18:59 Intake Total 390 Output Total 350 1150 Balance 40 -1150 Weight 89.5 kg Intake: Oral 390 Output: Urine 350 1150 Other: Voiding Method Incontinent Incontinent - Exam -GENERAL: The patient is alert and oriented x0, not in any acute distress. Well developed, well nourished. HEENT: Pupils are round and equally reacting to light. EOMI. No scleral icterus. No conjunctival pallor. Normocephalic, atraumatic. No pharyngeal erythema. No thyromegaly. -CARDIOVASCULAR: S1 and S2 present. No murmurs, rubs, or gallops. PULMONARY: Chest is clear to auscultation, no wheezing or crackles. Decreased breath sounds on the left side, bilateral basal crepitation ABDOMEN: Soft, nontender, nondistended, normoactive bowel sounds. No palpable organomegaly. MUSCULOSKELETAL: No joint swelling or deformity. -EXTREMITIES: No cyanosis, clubbing,. 2+ leg edema NEUROLOGICAL: Gross neurological examination did not reveal any focal deficits. SKIN: No rashes. No petechiae - Labs CBC & Chem 7: 06/23/19 05:38 06/24/19 06:18 Labs: Abnormal Lab Results - Last 24 Hours (Table) 06/23/19 06/24/19 Range/Units 22:19 06:18 Sodium 135 L (137-145) mmol/L BUN 41 H (9-20) mg/dL Creatinine 1.27 H (0.66-1.25) mg/dL Glucose 101 H (74-99) mg/dL POC Glucose (mg/dL) 140 H (75-99) mg/dL Assessment and Plan Assessment: Chronic heart failure underwent chronic atrial fibrillation, status post pacemaker Hypertension Dementia Hypothyroidism Depression, not in active tissue History of prostate problems status post surgery Plan: This is a pleasant 83 years old male who presents with acute CHF exacerbation and left pleural effusion. Continue with diuretics with IV Lasix, continue with Coreg and lisinopril. Follow-up recommendation by cardiology and pulmonary services Labs and medication were reviewed.. Continue same treatment. Continue with symptomatic treatment. Resume home medication. Monitor lytes and vitals. DVT and GI prophylaxis. Further recommendations of the clinical course of the patient DVT prophylaxis: Eliquis GI Prophylaxis: Pepcid PT/OT: Subacute rehab Prognosis is guarded
[2019-06-24] MEDS: APIXABAN 2.5 MG TABLET PO SCH ×2 (08:11→20:00)
[2019-06-24] MEDS: ASPIRIN 325 MG TAB PO SCH (08:11)
[2019-06-24] MEDS: TAMSULOSIN 0.4 MG CAP.ER.24H PO SCH ×2 (08:11→20:00)
[2019-06-24] MEDS: POTASSIUM BICARBONATE/CIT AC 20 MEQ TABLET.EFF PO SCH (08:11)
--- NOTE | 2019-06-24 09:03 | XR ---
EXAMINATION TYPE: XR chest 1V portable DATE OF EXAM: 06/24/2019 CLINICAL HISTORY: Difficulty breathing and CHF progress study. TECHNIQUE: Single AP portable upright view of the chest is obtained. COMPARISON: Chest x-ray from one day earlier and older studies. CT chest November 11, 2018 FINDINGS: Persistent cardiomegaly with single lead pacemaker and atherosclerotic aorta. Persistent s mall to tiny right and moderate to large size left pleural effusion and associated left lung atelecta sis and/or infiltrate. Degenerative change bilateral glenohumeral joints again seen. IMPRESSION: Marked cardiomegaly with moderate to large left pleural effusion and associated left lung atelectasis and/or infiltrate all redemonstrated without significant change from most recent x-ray.
--- NOTE | 2019-06-24 09:30 | P.PN ---
Subjective Progress Note Date: 06/24/19 Principal diagnosis: Heart failure with preserved LV function This is a pleasant 83-year-old gentleman who is somewhat poor historian was underlying dementia with a past medical history significant for congestive heart failure secondary to diastolic dysfunction, long-standing persistent atrial fibrillation on oral anticoagulation, as well as history of permanent pacemaker implantation, was brought to the hospital by his family for further evaluation of increasing in the shortness of breath. The patient somewhat is a poor historian and the history was taken from the chart. The patient was unable to provide any information. Apparently he was experiencing increasing in his shortness of breath. Beside that he developed severe bilateral lower extremities pitting edema. When he was seen this morning he was sitting in bed at 45 angle. The patient also noticed that he gained about 10 pounds. No indication that the patient didn't have any symptoms of chest pain or chest discomfort, dizziness, heart racing, or syncope. When he presented to the hospital the chest x-ray showed moderate pleural effusion. The EKG showed underlying atrial fibrillation with controlled heart rate. The patient underwent permanent pacemaker implantation back in 2018. The last echocar diogram from 2019 revealed normal left ventricle systolic function with evidence of mild aortic stenosis. At this point, I am going to DC the Lasix by mouth and start the patient on Lasix IV. Beside that continue monitoring the kidney function and electrolytes. Continue oral anticoagulation. Follow-up with the patient. Please note that the patient might be not a good candidate to have any oral anticoagulation if he is high risk of falling and bleeding. The patient was seen today, June 242019. Overall he is a poor historian. On examination he still have bilateral lower except is significant itching edema. He is on Lasix IV. The creatinine today is slightly elevated compared to yesterday and because of that I'm going to decrease the dose of Lasix to 40 mg IV daily and continue monitor the kidney function as well as electrolytes. Objective - Vital Signs Vital signs: Vital Signs Temp 98.6 F 06/24/19 08:00 Pulse 59 L 06/24/19 08:00 Resp 18 06/24/19 08:00 BP 117/57 06/24/19 08:00 Pulse Ox 98 06/24/19 08:00 Intake & Output 06/23/19 06/24/19 06/24/19 18:59 06:59 18:59 Intake Total 390 Output Total 350 1150 Balance 40 -1150 Weight 89.5 kg Intake: Oral 390 Output: Urine 350 1150 Other: Voiding Method Incontinent Incontinent Incontinent - Constitutional General appearance: Present: no acute distress - Respiratory Respiratory: bilateral: diminished - Cardiovascular Rhythm: irregularly irregular Heart sounds: normal: S1, S2 - Labs CBC & Chem 7: 06/23/19 05:38 06/24/19 06:18 Labs: Abnormal Lab Results - Last 24 Hours (Table) 06/23/19 06/24/19 Range/Units 22:19 06:18 Sodium 135 L (137-145) mmol/L BUN 41 H (9-20) mg/dL Creatinine 1.27 H (0.66-1.25) mg/dL Glucose 101 H (74-99) mg/dL POC Glucose (mg/dL) 140 H (75-99) mg/dL Assessment and Plan Assessment: Assessment #1 long-standing persistent atrial fibrillation was controlled heart rate #2 congestive heart failure exacerbation secondary to diastole dysfunction #3 mild aortic stenosis #4 permanent pacemaker #5 multiple comorbid conditions Plan #1 decrease the dose of Lasix IV #2 continue monitor the kidney function and electrolytes #3 no need to repeat the echocardiogram #4 follow-up with the patient Thank you for allowing us participate in his care
[2019-06-24] MEDS ORDERED: FUROSEMIDE 10 MG/ML 4 ML VIAL IV SCH (10:49)
[2019-06-24] MEDS: METOLAZONE 2.5 MG TAB PO SCH (10:52)
--- NOTE | 2019-06-24 12:40 | P.PN ---
Subjective Progress Note Date: 06/24/19 This is an 83-year-old white male known history of dementia, chronic diastolic congestive heart failure and long-standing atrial fibrillation on oral anticoagulation therapy. History of permanent pacemaker implantation. Patient was admitted on 06/22/2019, mostly with symptoms of increased shortness of viktoria ath. Patient cannot give any history, unable to provide any information. Apparently he was noted to have worsening shortness of breath over the last few days, and increased swelling of the lower extremities with pitting edema. Weight went up by 10 pounds. Patient had no chest pain, no palpitations, no syncope, upon evaluation in the ER, patient was noted to have bilateral pleural effusions, left more so than right. His EKG showed mostly atrial fibrillation with controlled heart rate. Previous echocardiogram showed normal LV function and mild aortic stenosis. Patient was placed on multiple diuretics and on Lasix. I was asked to see the patient on consultation for possible left sided t horacentesis. Patient is on anticoagulation therapy, he seems to be very comfortable, he is actually on room air. His diuretics have been increased, hence I plan to continue medical management, and if no improvement with medical management then we would consider left sided thoracentesis. Ultrasound showed a 6.5 cm pocket, could be drained, however prefer to treat with diuretics before thoracentesis. On 06/24/2019 patient seen in follow-up on selective care unit, he is resting comfortably in the recliner, his is at the bedside, patient has advanced dementia, he is unable to give much history, but he does not look in any distress, no signs of any respiratory difficulty, she is currently on room air with a pulse ox of 98%, hemodynamically patient is stable, afebrile. His states patient does not her to be in any respiratory distress, his activity level has been quite limited. Patient remains on IV Lasix, currently at 40 mg once daily, he is in negative fluid balance, -1110 mL over the last 24 hours, she is negative for 0.8 kg according to the recorded weight however patient still has quite significant lower extremity edema and his thinks that the edema involving his upper extremities is getting worse. Chest x-ray shows stable findings of a large left-sided pleural effusion and associated left lung atelectasis without significant change. Today's labs showed slight worsening of patient's renal function and cardiology adjusted the dose of Lasix to once daily. Objective - Vital Signs Vital signs: Vital Signs Temp 98.6 F 06/24/19 08:00 Pulse 59 L 06/24/19 08:00 Resp 18 06/24/19 08:00 BP 117/57 06/24/19 08:00 Pulse Ox 98 06/24/19 08:00 Intake & Output 06/23/19 06/24/19 06/24/19 18:59 06:59 18:59 Intake Total 390 118 Output Total 350 1150 Balance 40 -1150 118 Weight 89.5 kg Intake: Oral 390 118 Output: Urine 350 1150 Other: Voiding Method Incontinent Incontinent Incontinent - Exam GENERAL EXAM: Alert, very pleasant, 83-year-old gentleman with advanced dementia, patient is not able to communicate very extensively, and his is the main communicator, comfortable in no apparent distress. HEAD: Normocephalic/atraumatic. EYES: Normal reaction of pupils, equal size. Conjunctiva pink, sclera white. NOSE: Clear with pink turbinates. THROAT: No erythema or exudates. NECK: No masses, no JVD, no thyroid enlargement, no adenopathy. CHEST: No chest wall deformity. Symmetrical expansion. LUNGS: Equal air entry with to manage breath sounds at the left base CVS: Regular rate and rhythm, normal S1 and S2, no gallops, no murmurs, no rubs ABDOMEN: Soft, nontender. No hepatosplenomegaly, normal bowel sounds, no guarding or rigidity. EXTREMITIES: No clubbing, anasarca, extensive 2+ lower extremity edema with shiny skin but no weeping, and edema involving upper extremities no cyanosis, 2+ pulses and upper and lower extremities. MUSCULOSKELETAL: Muscle strength and tone normal. SPINE: No scoliosis or deformity SKIN: No rashes CENTRAL NERVOUS SYSTEM: Alert and oriented -1. No focal deficits, tone is normal in all 4 extremities. PSYCHIATRIC: Alert and oriented -1. Appropriate affect. Intact judgment and insight. - Labs CBC & Chem 7: 06/23/19 05:38 06/24/19 06:18 Labs: Abnormal Lab Results - Last 24 Hours (Table) 06/23/19 06/24/19 Range/Units 22:19 06:18 Sodium 135 L (137-145) mmol/L BUN 41 H (9-20) mg/dL Creatinine 1.27 H (0.66-1.25) mg/dL Glucose 101 H (74-99) mg/dL POC Glucose (mg/dL) 140 H (75-99) mg/dL Assessment and Plan Plan: Assessment: Acute on chronic diastolic congestive heart failure. Bilateral pleural effusion secondary to CHF. As above. Left more so than right. History of dementia. Chronic atrial fibrillation and previous pacemaker implantation. On anticoagulation therapy. History of hypothyroidism. History of depression. Benign essential hypertension. Plan: Continue diuretics, patient had a chest x-ray today still showing a large left- sided pleural effusion, and patient has significant fluid overload and anasarca. But in view of his worsening renal function his Lasix dose was dropped down to once daily. Consider Lasix drip. Clinically patient appears to be in any acute distress, is on room air, and his states she does not appear to be in any acute distress. We may consider left-sided thoracentesis his renal function continues to worsen and his Eliquis will have to be on hold for 24-48 4 hours prior I performed a history & physical examination of the patient and discussed their management with my nurse practitioner, Christy Alexis. I reviewed the nurse practitioner's note and agree with the documented findings and plan of care. Lung sounds are positive for diminished breath sounds bilaterally. The findings and the impression was discussed with the patient. I attest to the documentation by the nurse practitioner. Time with Patient: Less than 30
[2019-06-24] MEDS: FUROSEMIDE 100 MG in SODIUM CHLORIDE 0.9% 90 ML IV SCH (16:46)
--- NOTE | 2019-06-24 18:08 | US ---
EXAMINATION TYPE: US venous doppler duplex LE DATE OF EXAM: 06/24/2019 5:54 PM COMPARISON: US CLINICAL HISTORY: Rule out DVT. Rule out DVT. Swelling. SIDE PERFORMED: Bilateral TECHNIQUE: The lower extremity deep venous system is examined utilizing real time linear array sonog aminah with graded compression, doppler sonography and color-flow sonography. VESSELS IMAGED: Common Femoral Vein Deep Femoral Vein Greater Saphenous Vein * Femoral Vein Popliteal Vein Small Saphenous Vein * Proximal Calf Veins (* superficial vessels) Right Leg: EIV not visualized. No evidence of DVT in veins imaged from prox calf veins to CFV/GSV. E ladan is seen throughout the calf. Difficult to examine behind the knee. Left Leg: EIV not visualized. No evidence of DVT in veins imaged from prox calf veins to CFV/GSV. Ed benita is seen throughout the calf. Difficult to examine behind the knee. IMPRESSION: No sign of deep vein thrombosis in both legs.
[2019-06-24] MEDS: FUROSEMIDE 10 MG/ML 4 ML VIAL IV SCH (18:31)
[2019-06-24] MEDS: MIRTAZAPINE 15 MG TAB PO SCH (20:00)
[2019-06-24] MEDS: LISINOPRIL 5 MG TAB PO SCH (20:00)
[2019-06-25] MEDS: FUROSEMIDE 100 MG in SODIUM CHLORIDE 0.9% 90 ML IV SCH ×3 (04:48→22:12)
[2019-06-25 06:29] LABS: Calcium 8.8 mg/dL (8.4-10.2); Magnesium 1.9 mg/dL (1.6-2.3)
[2019-06-25] MEDS: CARVEDILOL 6.25 MG TAB PO SCH ×2 (06:35→18:13)
[2019-06-25] MEDS: LEVOTHYROXINE 50 MCG TAB PO SCH (06:35)
[2019-06-25] MEDS ORDERED: Potassium Replacement Protocol 1 EACH MISC MISCELLANE PRN (07:56)
--- NOTE | 2019-06-25 07:59 | P.PN ---
Subjective This is a pleasant 83 years old male with past medical history of heart failure, dementia, atrial fibrillation, hypertension, prostate problems status post surgery: Status post permanent pacemaker, hypothyroidism. Patient could not provide information because of his dementia, so information was taken from staff from records, as per staff patient was transferred because the felt he's and well, as well as because of leg swelling and with a 10 pound weight gain. Hemodynamically stable and is saturating 99% on room air. Patient is afebrile. Labs are unremarkable including CBC, BMP, INR, liver enzymes. EKG: Paced rhythm at 61 bpm. Chest x-ray showing venous congestion and cardiomegaly suspicious for CHF, possible left pleural effusion by radiologist. In the emergency room patient was started on Lasix and aspirin. 06/23/2019 As per staff patient lives with , his independent however he is confused and usually he come to get with one wart only. This morning patient is awake however he does not follow commands and when asked questions he mumbles. He does not look in distress, is slightly tachypneic. Vitas looks stable and he is saturating 97% on room air. Labs from today looks stable with WBC 6.1K, hemoglobin 10.2, sodium 136, creatinine 1.0, glucose controls. He has Albright catheter and 600 mL was drained out. His legs are still swollen. Discussed with the staff to obtain urine analysis, repeat chest x-ray. Also a sked for physical therapy evaluation. Check chest x-ray and pro calcitonin. And TSH Patient currently on Lasix 40 mg twice daily, metolazone 1.25 mg daily and Eliquis for DVT prophylaxis. 06/24/2019 Patient is more alert and comfortable today. No tachypnea, he barely answers with one wart with looks like his baseline. He follows simple commands at times. His blood pressure 113/61, heart rate 60, patient is afebrile. No leukocytosis. His creatinine is slightly trended up to 1.27, sodium 135. He remains on IV Lasix 40 mg twice daily however was going to check with communications scientist team about the diuretic therapy. Also he is on metolazone 1.25 mg daily. Also is on aspirin and Eliquis. Pulmonary input is appreciated for left pleural effusion, they recommended to continue with medical therapy for now and no plan for thoracocentesis. Patient may benefit from ECF for rehab on discharge 06/25/2019 Patient is awake alert, he needed assistance for his meal this morning, he was looking injuring his meal. No specific complaints however patient does not follow command, he answers with only "ya" to several questions. He has good attention span. He is hemodynamically stable. His saturation 97% on room air. Labs show an increasing creatinine to 1.39, potassium 3.0, sodium 135, he remains on Lasix drip, possibly he might need thoracocentesis for his left pleural effusion. Doppler of the lower extremities negative for DVT. Place Luis wrap to lower his lower extremity extensive edema Objective - Vital Signs Vital signs: Vital Signs Temp 98.4 F 06/24/19 20:00 Pulse 75 06/25/19 07:52 Resp 20 06/25/19 07:52 BP 121/71 06/25/19 07:52 Pulse Ox 97 06/25/19 07:52 Intake & Output 06/24/19 06/25/19 06/25/19 18:59 06:59 18:59 Intake Total 712 200 Output Total 1200 2850 Balance -488 -2650 Weight 91 kg Intake: Oral 712 200 Output: Urine 1200 2850 Other: Voiding Method Incontinent Incontinent # Bowel Movements 1 - Exam -GENERAL: The patient is alert and oriented x0, not in any acute distress. Well developed, well nourished. HEENT: Pupils are round and equally reacting to light. EOMI. No scleral icterus. No conjunctival pallor. Normocephalic, atraumatic. No pharyngeal erythema. No thyromegaly. -CARDIOVASCULAR: S1 and S2 present. No murmurs, rubs, or gallops. PULMONARY: Chest is clear to auscultation, no wheezing or crackles. Decreased breath sounds on the left side, bilateral basal crepitation ABDOMEN: Soft, nontender, nondistended, normoactive bowel sounds. No palpable organomegaly. MUSCULOSKELETAL: No joint swelling or deformity. -EXTREMITIES: No cyanosis, clubbing,. 2+ leg edema NEUROLOGICAL: Gross neurological examination did not reveal any focal deficits. SKIN: No rashes. 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 Continue with diuretics with IV Lasix but we might need to stop it because of worsening kidney function., continue with Coreg and lisinopril. Follow-up recommendation by cardiology and pulmonary services. Labs and medication were reviewed.. Continue same treatment. Continue with symptomatic treatment. Resume home medication. Monitor lytes and vitals. DVT and GI prophylaxis. Further recommendations of the clinical course of the patient DVT prophylaxis: Eliquis GI Prophylaxis: Pepcid PT/OT: Subacute rehab Prognosis is guarded
--- NOTE | 2019-06-25 08:42 | P.PN ---
Subjective Progress Note Date: 06/25/19 Principal diagnosis: Heart failure with preserved LV function This is a pleasant 83-year-old gentleman who is somewhat poor historian was underlying dementia with a past medical history significant for congestive heart failure secondary to diastolic dysfunction, long-standing persistent atrial fibrillation on oral anticoagulation, as well as history of permanent pacemaker implantation, was brought to the hospital by his family for further evaluation of increasing in the shortness of breath. The patient somewhat is a poor historian and the history was taken from the chart. The patient was unable to provide any information. Apparently he was experiencing increasing in his shortness of breath. Beside that he developed severe bilateral lower extremities pitting edema. The last echocardiogram from 2019 revealed normal left ventricle systolic function with evidence of mild aortic stenosis. Patient was seen today, 06/25/2019. Yesterday he was started on Lasix drip for pleural effusion as well as anasarca. The creatinine today is a slightly worse. Otherwise the patient denies any symptoms of chest pain or chest discomfort, increasing in the shortness of breath. He still have bilateral lower extremities edema. Objective - Vital Signs Vital signs: Vital Signs Temp 98.4 F 06/24/19 20:00 Pulse 75 06/25/19 07:52 Resp 20 06/25/19 07:52 BP 121/71 06/25/19 07:52 Pulse Ox 97 06/25/19 07:52 Intake & Output 06/24/19 06/25/19 06/25/19 18:59 06:59 18:59 Intake Total 712 200 Output Total 1200 2850 Balance -488 -2650 Weight 91 kg Intake: Oral 712 200 Output: Urine 1200 2850 Other: Voiding Method Incontinent Incontinent # Bowel Movements 1 - Constitutional General appearance: Present: no acute distress - Respiratory Respiratory: bilateral: diminished - Cardiovascular Heart sounds: normal: S1, S2 Abnormal Heart Sounds: Present: systolic murmur - Labs CBC & Chem 7: 06/23/19 05:38 06/25/19 05:30 Labs: Abnormal Lab Results - Last 24 Hours (Table) 06/25/19 Range/Units 05:30 Sodium 135 L (137-145) mmol/L Potassium 3.0 L (3.5-5.1) mmol/L BUN 47 H (9-20) mg/dL Creatinine 1.39 H (0.66-1.25) mg/dL Glucose 103 H (74-99) mg/dL Assessment and Plan Assessment: Assessment #1 long-standing persistent atrial fibrillation was controlled heart rate #2 congestive heart failure exacerbation secondary to diastole dysfunction #3 mild aortic stenosis #4 permanent pacemaker #5 multiple comorbid conditions Plan #1 continue Lasix IV #2 continue monitor the kidney function and electrolytes #3 no need to repeat the echocardiogram #4 follow-up with the patient Thank you for allowing us participate in his care
[2019-06-25] MEDS ORDERED: FUROSEMIDE 10 MG/ML 4 ML VIAL IV SCH (09:00)
[2019-06-25] MEDS: METOLAZONE 2.5 MG TAB PO SCH (09:54)
[2019-06-25] MEDS: ASPIRIN 325 MG TAB PO SCH (09:57)
[2019-06-25] MEDS: POTASSIUM BICARBONATE/CIT AC 20 MEQ TABLET.EFF PO SCH (09:57)
[2019-06-25] MEDS: TAMSULOSIN 0.4 MG CAP.ER.24H PO SCH ×2 (09:57→22:13)
[2019-06-25] MEDS: APIXABAN 2.5 MG TABLET PO SCH ×2 (09:57→22:14)
--- NOTE | 2019-06-25 12:05 | P.PN ---
Subjective Progress Note Date: 06/25/19 This is an 83-year-old white male known history of dementia, chronic diastolic congestive heart failure and long-standing atrial fibrillation on oral anticoagulation therapy. History of permanent pacemaker implantation. Patient was admitted on 06/22/2019, mostly with symptoms of increased shortness of viktoria ath. Patient cannot give any history, unable to provide any information. Apparently he was noted to have worsening shortness of breath over the last few days, and increased swelling of the lower extremities with pitting edema. Weight went up by 10 pounds. Patient had no chest pain, no palpitations, no syncope, upon evaluation in the ER, patient was noted to have bilateral pleural effusions, left more so than right. His EKG showed mostly atrial fibrillation with controlled heart rate. Previous echocardiogram showed normal LV function and mild aortic stenosis. Patient was placed on multiple diuretics and on Lasix. I was asked to see the patient on consultation for possible left sided t horacentesis. Patient is on anticoagulation therapy, he seems to be very comfortable, he is actually on room air. His diuretics have been increased, hence I plan to continue medical management, and if no improvement with medical management then we would consider left sided thoracentesis. Ultrasound showed a 6.5 cm pocket, could be drained, however prefer to treat with diuretics before thoracentesis. On 06/24/2019 patient seen in follow-up on selective care unit, he is resting comfortably in the recliner, his is at the bedside, patient has advanced dementia, he is unable to give much history, but he does not look in any distress, no signs of any respiratory difficulty, she is currently on room air with a pulse ox of 98%, hemodynamically patient is stable, afebrile. His states patient does not her to be in any respiratory distress, his activity level has been quite limited. Patient remains on IV Lasix, currently at 40 mg once daily, he is in negative fluid balance, -1110 mL over the last 24 hours, she is negative for 0.8 kg according to the recorded weight however patient still has quite significant lower extremity edema and his thinks that the edema involving his upper extremities is getting worse. Chest x-ray shows stable findings of a large left-sided pleural effusion and associated left lung atelectasis without significant change. Today's labs showed slight worsening of patient's renal function and cardiology adjusted the dose of Lasix to once daily. Objective - Vital Signs Vital signs: Vital Signs Temp 98.4 F 06/24/19 20:00 Pulse 71 06/25/19 08:00 Resp 20 06/25/19 11:26 BP 121/71 06/25/19 07:52 Pulse Ox 97 06/25/19 07:52 Intake & Output 06/24/19 06/25/19 06/25/19 18:59 06:59 18:59 Intake Total 712 300 360 Output Total 1200 2850 600 Balance -488 -2550 -240 Weight 91 kg Intake: Intake, IV Titration 100 Amount Furosemide 100 mg In 100 Sodium Chloride 0.9% 90 ml @ 10 MG/HR 10 mls/hr IV .Q10H [facility] Rx#: [id number] Oral 712 200 360 Output: Urine 1200 2850 600 Other: Voiding Method Incontinent Incontinent Incontinent # Bowel Movements 1 - Exam GENERAL EXAM: Alert, very pleasant, 83-year-old gentleman with advanced dem entia, patient is not able to communicate very extensively, and his is the main communicator, comfortable in no apparent distress. HEAD: Normocephalic/atraumatic. EYES: Normal reaction of pupils, equal size. Conjunctiva pink, sclera white. NOSE: Clear with pink turbinates. THROAT: No erythema or exudates. NECK: No masses, no JVD, no thyroid enlargement, no adenopathy. CHEST: No chest wall deformity. Symmetrical expansion. LUNGS: Equal air entry with diminished breath sounds at the left base CVS: Regular rate and rhythm, normal S1 and S2, no gallops, no murmurs, no rubs ABDOMEN: Soft, nontender. No hepatosplenomegaly, normal bowel sounds, no guarding or rigidity. EXTREMITIES: No clubbing, anasarca, improving lower extremity edema, both BLE have been josé miguel-wrapped, and edema involving upper extremities no cyanosis, 2+ pulses and upper and lower extremities. MUSCULOSKELETAL: Muscle strength and tone normal. SPINE: No scoliosis or deformity SKIN: No rashes CENTRAL NERVOUS SYSTEM: Alert and oriented -1. No focal deficits, tone is normal in all 4 extremities. PSYCHIATRIC: Alert and oriented -1. Appropriate affect. Intact judgment and insight. - Labs CBC & Chem 7: 06/23/19 05:38 06/25/19 05:30 Labs: Abnormal Lab Results - Last 24 Hours (Table) 06/25/19 Range/Units 05:30 Sodium 135 L (137-145) mmol/L Potassium 3.0 L (3.5-5.1) mmol/L BUN 47 H (9-20) mg/dL Creatinine 1.39 H (0.66-1.25) mg/dL Glucose 103 H (74-99) mg/dL Assessment and Plan Plan: Assessment: Acute on chronic diastolic congestive heart failure. Bilateral pleural effusion secondary to CHF. As above. Left more so than right. History of dementia. Chronic atrial fibrillation and previous pacemaker implantation. On anticoagulation therapy. History of hypothyroidism. History of depression. Benign essential hypertension. Plan: We'll obtain follow-up chest x-ray today, patient is maintaining stable oxygenation on room air, does not appear to be in any acute distress, generalized edema and anasarca are improving, continue with IV Lasix drip, may have to dropped down the rate to 5 mg per hour. Today's labs have been reviewed, supplement potassium per protocol, repeat blood work in the morning, accurate intake and output, daily weights. We'll continue to follow I performed a history & physical examination of the patient and discussed their management with my nurse practitioner, Christy Alexis. I reviewed the nurse practitioner's note and agree with the documented findings and plan of care. Lung sounds are positive for diminished breath sounds bilaterally. The findings and the impression was discussed with the patient. I attest to the d ocumentation by the nurse practitioner. Time with Patient: Less than 30
--- NOTE | 2019-06-25 12:49 | XR ---
EXAMINATION TYPE: XR chest 1V portable DATE OF EXAM: 06/25/2019 Comparison: 06/24/2019 Clinical History: 83-year-old male ICU management, follow up CXR Findings: Left anterior chest wall pacemaker generator with right ventricular lead. Continued moderate to large left pleural effusion with underlying opacity, slightly improved from prior exam. Excessive kyphotic positioning. Old healed right-sided rib fracture deformities. Left heart margin is obscured by adjac ent pleural parenchymal opacity and heart size is not assessed presently. Impression: Moderate to large left pleural effusion with underlying atelectasis and/or consolidation similar to s lightly improved from prior.
[2019-06-25] MEDS: PIPERACILLIN-TAZOBACTAM 3.375 GM in SODIUM CHLORIDE 0.9% 100 ML IVPB SCH (17:49)
[2019-06-25] MEDS ORDERED: ACETAMINOPHEN TAB 325 MG TAB PO PRN (17:57)
[2019-06-25 18:50] LABS: Appearance,Urine Clear (Clear); Bilirubin,Urine Negative (Negative); Blood,Urine Negative (Negative); Color,Urine Light Yellow; Glucose,Urine (UA) Negative (Negative); Ketones,Urine Negative (Negative); Leukocyte Esterase,Urine Negative (Negative); Nitrite,Urine Negative (Negative); PH, Urine 6.5 (5.0-8.0); Protein,Urine Negative (Negative); Specific Gravity,Urine 1.008 (1.001-1.035); Urobilinogen,Urine <2.0 mg/dL (<2.0)
[2019-06-25] MEDS: MIRTAZAPINE 15 MG TAB PO SCH (22:13)
[2019-06-25] MEDS: LISINOPRIL 5 MG TAB PO SCH (22:14)
[2019-06-26] MEDS: PIPERACILLIN-TAZOBACTAM 3.375 GM in SODIUM CHLORIDE 0.9% 100 ML IVPB SCH ×4 (02:28→23:22)
[2019-06-26] MEDS: LEVOTHYROXINE 50 MCG TAB PO SCH ×2 (06:19→23:23)
[2019-06-26 06:25] LABS: Basophils % (A) 0 %; Eosinophils # (A) 0.1 k/uL (0-0.7); Eosinophils % (A) 1 %; HCT 28.7 % (39.0-53.0); HGB 9.5 gm/dL (13.0-17.5); Lymphocytes # (A) 0.8 k/uL (1.0-4.8); Lymphocytes % (A) 12 %; MCH 30.2 pg (25.0-35.0); MCHC 33.2 g/dL (31.0-37.0); MCV 90.9 fL (80.0-100.0); Mean Platelet Volume 8.6; Monocytes # (A) 0.6 k/uL (0-1.0); Monocytes % (A) 9 %; Neutrophils # (A) 4.9 k/uL (1.3-7.7); Neutrophils % (A) 75 %; Platelet Count 168 k/uL (150-450); RBC 3.16 m/uL (4.30-5.90); RDW 15.1 % (11.5-15.5); WBC 6.5 k/uL (3.8-10.6)
[2019-06-26] MEDS: CARVEDILOL 6.25 MG TAB PO SCH ×3 (06:28→23:23)
[2019-06-26 06:35] LABS: Calcium 8.6 mg/dL (8.4-10.2); Potassium 2.8 mmol/L (3.5-5.1)
[2019-06-26] MEDS: TAMSULOSIN 0.4 MG CAP.ER.24H PO SCH ×2 (08:44→23:23)
[2019-06-26] MEDS: ASPIRIN 325 MG TAB PO SCH (08:44)
[2019-06-26] MEDS: POTASSIUM BICARBONATE/CIT AC 20 MEQ TABLET.EFF PO SCH (08:44)
[2019-06-26] MEDS: APIXABAN 2.5 MG TABLET PO SCH ×2 (08:44→23:23)
[2019-06-26] MEDS: METOLAZONE 2.5 MG TAB PO SCH (08:46)
--- NOTE | 2019-06-26 11:57 | P.PN ---
Subjective Progress Note Date: 06/26/19 Principal diagnosis: The patient is seen today 06/26/2019 in follow-up on the selective care unit. He is currently resting comfortably in bed. Awake and alert in no acute distres s. His is at the bedside and supplying most of the information today. He is comfortable. He is maintaining good O2 saturations in the mid 90s on room air. Temperature 99.1 axillary. Blood pressure stable. White count 6.5. Hemoglobin 9.5. Sodium 134. Potassium 2.8. Bicarb 31. Creatinine 1.46. He is being transitioned from a Lasix drip to oral diuretics. Remains in a -1500 ML balance. Weight 90.9 kg. Anticoagulated with Eliquis. Remains on Zosyn. Objective - Vital Signs Vital signs: Vital Signs Temp 99.1 F 06/26/19 11:33 Pulse 60 06/26/19 11:33 Resp 18 06/26/19 11:33 BP 105/63 06/26/19 11:33 Pulse Ox 97 06/26/19 11:33 Intake & Output 06/25/19 06/26/19 06/26/19 18:59 06:59 18:59 Intake Total 720 28.917 100 Output Total 6872 379 6159 Balance -730 -751.083 -1500 Weight 90.9 kg Intake: Intake, IV Titration 28.917 Amount Furosemide 100 mg In 28.917 Sodium Chloride 0.9% 90 ml @ 5 MG/HR 5 mls/hr IV .Q20H [facility] Rx#:[id number] Oral 720 100 Output: Urine 8637 093 2783 Other: Voiding Method Incontinent Incontinent Incontinent # Voids 1 # Bowel Movements 1 - Exam GENERAL EXAM: 83-year-old gentleman with advanced dementia, patient is not able to communicate, on room air, comfortable in no apparent distress. HEAD: Normocephalic/atraumatic. EYES: Normal reaction of pupils, equal size. Conjunctiva pink, sclera white. NOSE: Clear with pink turbinates. THROAT: No erythema or exudates. NECK: No masses, no JVD, no thyroid enlargement, no adenopathy. CHEST: No chest wall deformity. Symmetrical expansion. LUNGS: Equal air entry with diminished breath sounds at the left base CVS: Regular rate and rhythm, normal S1 and S2, no gallops, no murmurs, no rubs ABDOMEN: Soft, nontender. No hepatosplenomegaly, normal bowel sounds, no guarding or rigidity. EXTREMITIES: No clubbing, anasarca, improving lower extremity edema, both BLE have been josé miguel-wrapped, and edema involving upper extremities no cyanosis, 2+ pulses and upper and lower extremities. MUSCULOSKELETAL: Muscle strength and tone normal. SPINE: No scoliosis or deformity SKIN: No rashes CENTRAL NERVOUS SYSTEM: No focal deficits, tone is normal in all 4 extremities. PSYCHIATRIC: Alert and oriented -1. Appropriate affect. Intact judgment and insight. - Labs CBC & Chem 7: 06/26/19 05:47 06/26/19 05:47 Labs: Abnormal Lab Results - Last 24 Hours (Table) 06/26/19 06/26/19 Range/Units 05:47 05:47 RBC 3.16 L (4.30-5.90) m/uL Hgb 9.5 L (13.0-17.5) gm/dL Hct 28.7 L (39.0-53.0) % Lymphocytes # 0.8 L (1.0-4.8) k/uL Sodium 134 L (137-145) mmol/L Potassium 2.8 L (3.5-5.1) mmol/L Chloride 95 L (98-107) mmol/L Carbon Dioxide 31 H (22-30) mmol/L BUN 55 H (9-20) mg/dL Creatinine 1.46 H (0.66-1.25) mg/dL Glucose 114 H (74-99) mg/dL Assessment and Plan Assessment: Acute on chronic diastolic congestive heart failure. Bilateral pleural effusion secondary to CHF. As above. Left more so than right. History of dementia. Chronic atrial fibrillation and previous pacemaker implantation. On anticoagulation therapy. History of hypothyroidism. History of depression. Benign essential hypertension. Plan: The patient was seen and evaluated by Dr. Ibarra. The patient is able lay flat in bed. He is on room air and maintaining O2 saturation in the mid to upper 90s. No plans for thoracentesis at this time. The patient does remain on Zosyn. He remains on diuretics. Anticoagulated with Eliquis. We will continue to follow. I, the cosigning physician, performed a history & physical examination of the patient. Lungs sounds diminished in the left base. Maintaining good O2 saturations in the 90s on room air. I discussed the assessment and plan of care with my nurse practitioner, Vanessa Griffin. I attest to the above note as dictated by her.
[2019-06-26] MEDS: FUROSEMIDE 100 MG in SODIUM CHLORIDE 0.9% 90 ML IV SCH (12:53)
--- NOTE | 2019-06-26 12:55 | P.PN ---
Subjective This is a pleasant 83 years old male with past medical history of heart failure, dementia, atrial fibrillation, hypertension, prostate problems status post surgery: Status post permanent pacemaker, hypothyroidism. Patient could not provide information because of his dementia, so information was taken from staff from records, as per staff patient was transferred because the felt he's and well, as well as because of leg swelling and with a 10 pound weight gain. Hemodynamically stable and is saturating 99% on room air. Patient is afebrile. Labs are unremarkable including CBC, BMP, INR, liver enzymes. EKG: Paced rhythm at 61 bpm. Chest x-ray showing venous congestion and cardiomegaly suspicious for CHF, possible left pleural effusion by radiologist. In the emergency room patient was started on Lasix and aspirin. 06/23/2019 As per staff patient lives with , his independent however he is confused and usually he come to get with one wart only. This morning patient is awake however he does not follow commands and when asked questions he mumbles. He does not look in distress, is slightly tachypneic. Vitas looks stable and he is saturating 97% on room air. Labs from today looks stable with WBC 6.1K, hemoglobin 10.2, sodium 136, creatinine 1.0, glucose controls. He has Albright catheter and 600 mL was drained out. His legs are still swollen. Discussed with the staff to obtain urine analysis, repeat chest x-ray. Also a sked for physical therapy evaluation. Check chest x-ray and pro calcitonin. And TSH Patient currently on Lasix 40 mg twice daily, metolazone 1.25 mg daily and Eliquis for DVT prophylaxis. 06/24/2019 Patient is more alert and comfortable today. No tachypnea, he barely answers with one wart with looks like his baseline. He follows simple commands at times. His blood pressure 113/61, heart rate 60, patient is afebrile. No leukocytosis. His creatinine is slightly trended up to 1.27, sodium 135. He remains on IV Lasix 40 mg twice daily however was going to check with finger waver team about the diuretic therapy. Also he is on metolazone 1.25 mg daily. Also is on aspirin and Eliquis. Pulmonary input is appreciated for left pleural effusion, they recommended to continue with medical therapy for now and no plan for thoracocentesis. Patient may benefit from ECF for rehab on discharge 06/25/2019 Patient is awake alert, he needed assistance for his meal this morning, he was looking injuring his meal. No specific complaints however patient does not follow command, he answers with only "ya" to several questions. He has good attention span. He is hemodynamically stable. His saturation 97% on room air. Labs show an increasing creatinine to 1.39, potassium 3.0, sodium 135, he remains on Lasix drip, possibly he might need thoracocentesis for his left pleural effusion. Doppler of the lower extremities negative for DVT. Place Luis wrap to lower his lower extremity extensive edema 06/26/2019 Patient clinically looks the same, she is awake, he has good attention span, he is slow to respond, at bedside, at one time he was able to say he is Jose A but he could not say it again, with difficulty recognize his as "the boss" and mentioned her name ash "taylor", as per at bedside patient looks better than yesterday. No respiratory distress nonspecific complaints, his legs are less edematous after applying Luis wraps, yesterday he had some fever and was started on Zosyn, his creatinine is still slightly elevated at 1.46. He remains on Lasix drip at 5 mg per hour, blood pressure stable at 105/63, no more fever I talked to the and she confirmed to me she is open to the idea of hospice if he deteriorates, however keep to improve and remained stable he might discharged to rehab/snf with palliative care consult Objective - Vital Signs Vital signs: Vital Signs Temp 99.1 F 06/26/19 11:33 Pulse 60 06/26/19 11:57 Resp 18 06/26/19 11:57 BP 105/63 06/26/19 11:33 Pulse Ox 97 06/26/19 11:33 Intake & Output 06/25/19 06/26/19 06/26/19 18:59 06:59 18:59 Intake Total 720 28.917 100 Output Total 1057 759 6864 Balance -730 -751.083 -1500 Weight 90.9 kg Intake: Intake, IV Titration .917 Amount Furosemide 100 mg In .7 Sodium Chloride 0.9% 90 ml @ 5 MG/HR 5 mls/hr IV .Q20H [facility] Rx#:[id number] Oral 720 100 Output: Urine 0883 [id number] [id number] Other: Voiding Method Incontinent Incontinent Incontinent # Voids 1 # Bowel Movements 1 - Exam -GENERAL: The patient is alert and oriented x0, not in any acute distress. Well developed, well nourished. HEENT: Pupils are round and equally reacting to light. EOMI. No scleral icterus. No conjunctival pallor. Normocephalic, atraumatic. No pharyngeal erythema. No thyromegaly. -CARDIOVASCULAR: S1 and S2 present. No murmurs, rubs, or gallops. PULMONARY: Chest is clear to auscultation, no wheezing or crackles. Decreased breath sounds on the left side, bilateral basal crepitation ABDOMEN: Soft, nontender, nondistended, normoactive bowel sounds. No palpable organomegaly. MUSCULOSKELETAL: No joint swelling or deformity. -EXTREMITIES: No cyanosis, clubbing,. 2+ leg edema NEUROLOGICAL: Gross neurological examination did not reveal any focal deficits. SKIN: No rashes. No petechiae - Labs CBC & Chem 7: 06/26/19 05:47 06/26/19 05:47 Labs: Abnormal Lab Results - Last 24 Hours (Table) 06/26/19 06/26/19 Range/Units 05:47 05:47 RBC 3.16 L (4.30-5.90) m/uL Hgb 9.5 L (13.0-17.5) gm/dL Hct 28.7 L (39.0-53.0) % Lymphocytes # 0.8 L (1.0-4.8) k/uL Sodium 134 L (137-145) mmol/L Potassium 2.8 L (3.5-5.1) mmol/L Chloride 95 L (98-107) mmol/L Carbon Dioxide 31 H (22-30) mmol/L BUN 55 H (9-20) mg/dL Creatinine 1.46 H (0.66-1.25) mg/dL Glucose 114 H (74-99) mg/dL Assessment and Plan Assessment: Chronic heart failure underwent chronic atrial fibrillation, status post pacemaker Hypertension Dementia Hypothyroidism Depression, not in active tissue History of prostate problems status post surgery Plan: This is a pleasant 83 years old male who presents with acute CHF exacerbation and left pleural effusion, SOME FEVER. Continue with diuretics with IV Lasix , monitor creatinine, continue with Coreg and lisinopril. Follow-up recommendation by cardiology and pulmonary services. Continue with Zosyn, if he deteriorates or if he recommends hospice and if he improves and go to ECF than palliative consult Labs and medication were reviewed.. Continue same treatment. Continue with symptomatic treatment. Resume home medication. Monitor lytes and vitals. DVT and GI prophylaxis. Further recommendations of the clinical course of the patient DVT prophylaxis: Eliquis GI Prophylaxis: Pepcid PT/OT: Subacute rehab Prognosis is guarded
--- NOTE | 2019-06-26 13:07 | P.PN ---
Subjective This is Lazara Mcgarry PA-C dictating a progress note on this patient The patient was interviewed and examined by me as well as by Dr. Hathaway Case discussed with Dr. Hathaway and he agrees with the plan of care HPI/interval history Patient is an 83-year-old male with a history of CHF, persistent atrial fibrillation, pacemaker implantation, and dementia who presented with shortness of breath. He was admitted for treatment of CHF. He has been on a Lasix drip. Patient seen and examined resting in bed, appears comfortable lying with the head of the bed slightly elevated. He is a poor historian but does not complain of any pain. His is at the bedside and feels his breathing has improved. EXAMINATION Patient is afebrile, pulse in the 60s, respirations 18, blood pressure 105/63, oxygen saturation 97% on room air Patient seen and examined resting in bed, does not appear to be in any acute distress, appears comfortable Lungs are diminished bilaterally Heart is irregular, systolic murmur noted He does have some edema in his hands worse on the right, mild lower extremity edema, bilateral legs are wrapped in Luis bandages REVIEW OF LABS, ECG WBC 6.5, hemoglobin 9.5, platelets 168, potassium 2.8, BUN 55, creatinine 1.46 Telemetry reveals underlying atrial fibrillation with controlled ventricular response IMPRESSION / ASSESSMENT: Acute on chronic congestive heart failure exacerbation secondary to diastolic dysfunction, symptoms seem to be improving Long-standing persistent atrial fibrillation, on anticoagulation with eliquis Mild aortic stenosis History of permanent pacemaker implantation Dementia BUN and creatinine trending up Hypokalemia PLAN: Stop Lasix drip and switched to IV Lasix May consider adding spironolactone Continue to monitor BMP Continue to monitor daily weights intake and output Denies anticoagulation Objective - Vital Signs Vital signs: Vital Signs Temp 99.1 F 06/26/19 11:33 Pulse 60 06/26/19 11:57 Resp 18 06/26/19 11:57 BP 105/63 06/26/19 11:33 Pulse Ox 97 06/26/19 11:33 Intake & Output 06/25/19 06/26/19 06/26/19 18:59 06:59 18:59 Intake Total 720 28.917 100 Output Total 0469 068 4331 Balance -730 -751.083 -1500 Weight 90.9 kg Intake: Intake, IV Titration 28.917 Amount Furosemide 100 mg In 28.917 Sodium Chloride 0.9% 90 ml @ 5 MG/HR 5 mls/hr IV .Q20H [facility] Rx#:[id number] Oral 720 100 Output: Urine 2812 659 9050 Other: Voiding Method Incontinent Incontinent Incontinent # Voids 1 # Bowel Movements 1 - Labs CBC & Chem 7: 06/26/19 05:47 06/26/19 05:47 Labs: Abnormal Lab Results - Last 24 Hours (Table) 06/26/19 06/26/19 Range/Units 05:47 05:47 RBC 3.16 L (4.30-5.90) m/uL Hgb 9.5 L (13.0-17.5) gm/dL Hct 28.7 L (39.0-53.0) % Lymphocytes # 0.8 L (1.0-4.8) k/uL Sodium 134 L (137-145) mmol/L Potassium 2.8 L (3.5-5.1) mmol/L Chloride 95 L (98-107) mmol/L Carbon Dioxide 31 H (22-30) mmol/L BUN 55 H (9-20) mg/dL Creatinine 1.46 H (0.66-1.25) mg/dL Glucose 114 H (74-99) mg/dL
[2019-06-26] MEDS: TOBRA-DEXAMET 0.3-0.1% OPHTH DROPS 2.5 ML BTL LEFT EYE SCH ×2 (14:54→23:22)
[2019-06-26] MEDS ORDERED: TOBRA-DEXAMET 0.3-0.1% OPHTH DROPS 2.5 ML BTL BOTH EYES SCH (16:00)
[2019-06-26] MEDS: LISINOPRIL 5 MG TAB PO SCH (23:23)
[2019-06-26] MEDS: FUROSEMIDE 10 MG/ML 4 ML VIAL IV SCH (23:23)
[2019-06-26] MEDS: MIRTAZAPINE 15 MG TAB PO SCH (23:23)
[2019-06-26] MEDS: LEVOTHYROXINE 75 MCG TAB PO SCH (23:23)
[2019-06-27] MEDS: TOBRA-DEXAMET 0.3-0.1% OPHTH DROPS 2.5 ML BTL LEFT EYE SCH ×7 (05:18→23:30)
[2019-06-27 06:23] LABS: Basophils % (A) 0 %; Eosinophils # (A) 0.1 k/uL (0-0.7); Eosinophils % (A) 1 %; HCT 28.6 % (39.0-53.0); HGB 9.3 gm/dL (13.0-17.5); Lymphocytes % (A) 18 %; MCHC 32.7 g/dL (31.0-37.0); MCV 91.7 fL (80.0-100.0); Mean Platelet Volume 8.7; Monocytes # (A) 0.5 k/uL (0-1.0); Monocytes % (A) 8 %; Neutrophils # (A) 4.1 k/uL (1.3-7.7); Neutrophils % (A) 70 %; Platelet Count 179 k/uL (150-450); RBC 3.12 m/uL (4.30-5.90); RDW 14.9 % (11.5-15.5); WBC 5.8 k/uL (3.8-10.6)
[2019-06-27 06:35] LABS: Calcium 8.3 mg/dL (8.4-10.2); Magnesium 2.1 mg/dL (1.6-2.3); Potassium 2.8 mmol/L (3.5-5.1)
[2019-06-27] MEDS: FUROSEMIDE 10 MG/ML 4 ML VIAL IV SCH ×2 (07:53→20:29)
[2019-06-27] MEDS: PIPERACILLIN-TAZOBACTAM 3.375 GM in SODIUM CHLORIDE 0.9% 100 ML IVPB SCH ×3 (07:54→23:29)
[2019-06-27] MEDS: TAMSULOSIN 0.4 MG CAP.ER.24H PO SCH ×2 (07:54→20:24)
[2019-06-27] MEDS: ASPIRIN 81 MG PO SCH (07:54)
[2019-06-27] MEDS: POTASSIUM BICARBONATE/CIT AC 20 MEQ TABLET.EFF PO SCH (07:54)
[2019-06-27] MEDS: METOLAZONE 2.5 MG TAB PO SCH (08:10)
--- NOTE | 2019-06-27 11:59 | P.PN ---
Subjective This is a pleasant 83 years old male with past medical history of heart failure, dementia, atrial fibrillation, hypertension, prostate problems status post surgery: Status post permanent pacemaker, hypothyroidism. Patient could not provide information because of his dementia, so information was taken from staff from records, as per staff patient was transferred because the felt he's and well, as well as because of leg swelling and with a 10 pound weight gain. Hemodynamically stable and is saturating 99% on room air. Patient is afebrile. Labs are unremarkable including CBC, BMP, INR, liver enzymes. EKG: Paced rhythm at 61 bpm. Chest x-ray showing venous congestion and cardiomegaly suspicious for CHF, possible left pleural effusion by radiologist. In the emergency room patient was started on Lasix and aspirin. 06/23/2019 As per staff patient lives with , his independent however he is confused and usually he come to get with one wart only. This morning patient is awake however he does not follow commands and when asked questions he mumbles. He does not look in distress, is slightly tachypneic. Vitas looks stable and he is saturating 97% on room air. Labs from today looks stable with WBC 6.1K, hemoglobin 10.2, sodium 136, creatinine 1.0, glucose controls. He has Albright catheter and 600 mL was drained out. His legs are still swollen. Discussed with the staff to obtain urine analysis, repeat chest x-ray. Also a sked for physical therapy evaluation. Check chest x-ray and pro calcitonin. And TSH Patient currently on Lasix 40 mg twice daily, metolazone 1.25 mg daily and Eliquis for DVT prophylaxis. 06/24/2019 Patient is more alert and comfortable today. No tachypnea, he barely answers with one wart with looks like his baseline. He follows simple commands at times. His blood pressure 113/61, heart rate 60, patient is afebrile. No leukocytosis. His creatinine is slightly trended up to 1.27, sodium 135. He remains on IV Lasix 40 mg twice daily however was going to check with club car attendant team about the diuretic therapy. Also he is on metolazone 1.25 mg daily. Also is on aspirin and Eliquis. Pulmonary input is appreciated for left pleural effusion, they recommended to continue with medical therapy for now and no plan for thoracocentesis. Patient may benefit from ECF for rehab on discharge 06/25/2019 Patient is awake alert, he needed assistance for his meal this morning, he was looking injuring his meal. No specific complaints however patient does not follow command, he answers with only "ya" to several questions. He has good attention span. He is hemodynamically stable. His saturation 97% on room air. Labs show an increasing creatinine to 1.39, potassium 3.0, sodium 135, he remains on Lasix drip, possibly he might need thoracocentesis for his left pleural effusion. Doppler of the lower extremities negative for DVT. Place Luis wrap to lower his lower extremity extensive edema 06/26/2019 Patient clinically looks the same, she is awake, he has good attention span, he is slow to respond, at bedside, at one time he was able to say he is Jose A but he could not say it again, with difficulty recognize his as "the boss" and mentioned her name ash "taylor", as per at bedside patient looks better than yesterday. No respiratory distress nonspecific complaints, his legs are less edematous after applying Luis wraps, yesterday he had some fever and was started on Zosyn, his creatinine is still slightly elevated at 1.46. He remains on Lasix drip at 5 mg per hour, blood pressure stable at 105/63, no more fever I talked to the and she confirmed to me she is open to the idea of hospice if he deteriorates, however keep to improve and remained stable he might discharged to rehab/penitentiary with palliative care consult 06/27/2019 Patient with no dyspnea or chest pain, his legs today were oozing while dressing and Luis wrap were placed, 3 still swollen, patient remains on IV Lasix 40 mg twice daily He is hemodynamically stable with no more fever History obtained is 1.5 today, potassium 2.8 which is been replaced, magnesium normal at 2.1 Objective - Vital Signs Vital signs: Vital Signs Temp 98.5 F 06/27/19 07:31 Pulse 60 06/27/19 07:47 Resp 18 06/27/19 07:47 BP 106/69 06/27/19 07:31 Pulse Ox 98 06/27/19 07:31 Intake & Output 06/26/19 06/27/19 06/27/19 18:59 06:59 18:59 Intake Total 700 240 Output Total 1600 260 Balance -900 -260 240 Weight 88.8 kg Intake: Oral 700 240 Output: Urine 1600 260 Other: Voiding Method Incontinent Incontinent Incontinent # Voids 0 - Exam -GENERAL: The patient is alert and oriented x0, not in any acute distress. Well developed, well nourished. HEENT: Pupils are round and equally reacting to light. EOMI. No scleral icterus. No conjunctival pallor. Normocephalic, atraumatic. No pharyngeal erythema. No thyromegaly. -CARDIOVASCULAR: S1 and S2 present. No murmurs, rubs, or gallops. PULMONARY: Chest is clear to auscultation, no wheezing or crackles. Decreased breath sounds on the left side, bilateral basal crepitation ABDOMEN: Soft, nontender, nondistended, normoactive bowel sounds. No palpable organomegaly. MUSCULOSKELETAL: No joint swelling or deformity. -EXTREMITIES: No cyanosis, clubbing,. 2+ leg edema NEUROLOGICAL: Gross neurological examination did not reveal any focal deficits. SKIN: No rashes. No petechiae - Labs CBC & Chem 7: 06/27/19 05:25 06/27/19 05:25 Labs: Abnormal Lab Results - Last 24 Hours (Table) 06/27/19 06/27/19 Range/Units 05:25 05:25 RBC 3.12 L (4.30-5.90) m/uL Hgb 9.3 L (13.0-17.5) gm/dL Hct 28.6 L (39.0-53.0) % Potassium 2.8 L (3.5-5.1) mmol/L BUN 55 H (9-20) mg/dL Creatinine 1.52 H (0.66-1.25) mg/dL Glucose 108 H (74-99) mg/dL Calcium 8.3 L (8.4-10.2) mg/dL Assessment and Plan Assessment: Chronic heart failure underwent chronic atrial fibrillation, status post pacemaker Hypertension Dementia Hypothyroidism Depression, not in active tissue History of prostate problems status post surgery Plan: This is a pleasant 83 years old male who presents with acute CHF exacerbation and left pleural effusion, SOME FEVER. Continue with diuretics with IV Lasix , monitor creatinine, continue with Coreg and lisinopril. Follow-up recommendation by cardiology and pulmonary services. Continue with Zosyn, if he deteriorates or if he recommends hospice and if he improves and go to ECF than palliative consult Labs and medication were reviewed.. Continue same treatment. Continue with symptomatic treatment. Resume home medication. Monitor lytes and vitals. DVT and GI prophylaxis. Further recommendations of the clinical course of the patient DVT prophylaxis: Eliquis GI Prophylaxis: Pepcid PT/OT: Subacute rehab Prognosis is guarded
--- NOTE | 2019-06-27 12:00 | P.PN ---
Subjective Progress Note Date: 06/27/19 Principal diagnosis: Acute on chronic diastolic congestive heart failure The patient is seen today 06/27/2019 in follow-up on the selective care unit. He is currently resting comfortably in bed. Awake and alert. More interactive today compared to yesterday. He is laying flat. He is maintaining O2 saturation the high 90s on room air. Edema of the lower extremities is impr oving. There is some weeping. Luis wraps remain in place. Remains in a negative balance. Weight 88.8 kg today. White count 5.8. Hemoglobin 9.3. Sodium 137. Potassium 2.8. Creatinine 1.52. Remains on Lasix 40 mg IV every 12 hours along with Zaroxolyn. Antibiotics in the form of Zosyn. Objective - Vital Signs Vital signs: Vital Signs Temp 98.5 F 06/27/19 07:31 Pulse 60 06/27/19 07:47 Resp 18 06/27/19 07:47 BP 106/69 06/27/19 07:31 Pulse Ox 98 06/27/19 07:31 Intake & Output 06/26/19 06/27/19 06/27/19 18:59 06:59 18:59 Intake Total 700 240 Output Total 1600 260 Balance -900 -260 240 Weight 88.8 kg Intake: Oral 700 240 Output: Urine 1600 260 Other: Voiding Method Incontinent Incontinent Incontinent # Voids 0 - Exam GENERAL EXAM: Frail 83-year-old gentleman with advanced dementia, on room air, comfortable in no apparent distress. HEAD: Normocephalic/atraumatic. EYES: Normal reaction of pupils, equal size. Conjunctiva pink, sclera white. NOSE: Clear with pink turbinates. THROAT: No erythema or exudates. NECK: No masses, no JVD, no thyroid enlargement, no adenopathy. CHEST: No chest wall deformity. Symmetrical expansion. LUNGS: Equal air entry with diminished breath sounds at the left base CVS: Regular rate and rhythm, normal S1 and S2, no gallops, no murmurs, no rubs ABDOMEN: Soft, nontender. No hepatosplenomegaly, normal bowel sounds, no guarding or rigidity. EXTREMITIES: No clubbing, anasarca, improving lower extremity edema, weeping, both BLE have been luis-wrapped, and edema involving upper extremities no cyanosis, 2+ pulses and upper and lower extremities. MUSCULOSKELETAL: Muscle strength and tone normal. SPINE: No scoliosis or deformity SKIN: No rashes CENTRAL NERVOUS SYSTEM: No focal deficits, tone is normal in all 4 extremities. PSYCHIATRIC: Alert and oriented -1. Appropriate affect. Intact judgment and insight. - Labs CBC & Chem 7: 06/27/19 05:25 06/27/19 05:25 Labs: Abnormal Lab Results - Last 24 Hours (Table) 06/27/19 06/27/19 Range/Units 05:25 05:25 RBC 3.12 L (4.30-5.90) m/uL Hgb 9.3 L (13.0-17.5) gm/dL Hct 28.6 L (39.0-53.0) % Potassium 2.8 L (3.5-5.1) mmol/L BUN 55 H (9-20) mg/dL Creatinine 1.52 H (0.66-1.25) mg/dL Glucose 108 H (74-99) mg/dL Calcium 8.3 L (8.4-10.2) mg/dL Assessment and Plan Assessment: Acute on chronic diastolic congestive heart failure. Bilateral pleural effusion secondary to CHF. Left more so than right. History of dementia. Chronic atrial fibrillation and previous pacemaker implantation. On anticoagulation therapy. History of hypothyroidism. History of depression. Benign essential hypertension. Plan: The patient was seen and evaluated by Dr. Ibarra. No plans for thoracentesis at this time. The patient is able lay flat in bed. He is on room air and maintaining O2 saturation in the mid to upper 90s. We'll repeat a chest x-ray in the a.m. The patient does remain on Zosyn. He remains on IV diuretics. Anticoagulated with Eliquis. We will continue to follow. I, the cosigning physician, performed a history & physical examination of the patient. Lungs sounds diminished in the left base. Maintaining good O2 saturations in the 90s on room air. I discussed the assessment and plan of care with my nurse practitioner, Vanessa Griffin. I attest to the above note as dictated by her.
--- NOTE | 2019-06-27 12:59 | P.PN ---
Subjective This is Lazara Mcgarry PA-C dictating a progress note on this patient The patient was interviewed and examined by me as well as by Dr. Hathaway Case discussed with Dr. Hathaway and he agrees with the plan of care HPI/interval history Patient is an 83-year-old male with a history of CHF, persistent atrial fibrillation, pacemaker implantation, and dementia who presented with shortness of breath. He was admitted for treatment of CHF. Yesterday we switched him from the Lasix drip to IV Lasix. He is diuresing well. He has lost 2 kg since yesterday. Patient seen and examined lying almost flat in bed, head of bed slightly elevated. He has dementia and is a poor historian but does not have any complaints. His states his breathing seems to be okay. EXAMINATION Patient is afebrile, pulse 60, respirations 18, blood pressure 106/69, oxygen saturation 98% on room air Patient seen and examined lying in bed, not in any acute distress Lungs are diminished bilaterally Heart is regular, systolic murmur audible slight elevated JVD noted Mild edema bilaterally, legs wrapped in bandages but are weeping REVIEW OF LABS, ECG WBC 5.8, hemoglobin 9.3, platelets 179, potassium 2.8, BUN 55, creatinine 1.52, magnesium 2.1 IMPRESSION / ASSESSMENT: Acute on chronic congestive heart failure exacerbation secondary to diastolic dysfunction, symptoms seem to be improving Long-standing persistent atrial fibrillation, on anticoagulation with eliquis Mild aortic stenosis History of permanent pacemaker implantation Dementia BUN and creatinine trending up Hypokalemia PLAN: Add spironolactone 50 mg daily Continue IV Lasix Continue eliquis continue Coreg Monitor BMP, daily weights and I and O Objective - Vital Signs Vital signs: Vital Signs Temp 97.8 F 06/27/19 12:00 Pulse 60 06/27/19 12:00 Resp 18 06/27/19 12:00 BP 112/76 06/27/19 12:00 Pulse Ox 97 06/27/19 12:00 Intake & Output 06/26/19 06/27/19 06/27/19 18:59 06:59 18:59 Intake Total 700 240 Output Total 1600 260 Balance -900 -260 240 Weight 88.8 kg Intake: Oral 700 240 Output: Urine 1600 260 Other: Voiding Method Incontinent Incontinent Incontinent # Voids 0 - Labs CBC & Chem 7: 03/01/20 05:25 06/27/19 05:25 Labs: Abnormal Lab Results - Last 24 Hours (Table) 06/27/19 06/27/19 Range/Units 05:25 05:25 RBC 3.12 L (4.30-5.90) m/uL Hgb 9.3 L (13.0-17.5) gm/dL Hct 28.6 L (39.0-53.0) % Potassium 2.8 L (3.5-5.1) mmol/L BUN 55 H (9-20) mg/dL Creatinine 1.52 H (0.66-1.25) mg/dL Glucose 108 H (74-99) mg/dL Calcium 8.3 L (8.4-10.2) mg/dL
[2019-06-27] MEDS: CARVEDILOL 6.25 MG TAB PO SCH (16:31)
[2019-06-27] MEDS: SPIRONOLACTONE 25 MG TAB PO SCH (16:38)
[2019-06-27] MEDS ORDERED: POTASSIUM CHLORIDE ER 20 MEQ TAB.ER PO STA (19:09)
[2019-06-27] MEDS: APIXABAN 2.5 MG TABLET PO SCH (20:24)
[2019-06-27] MEDS: MIRTAZAPINE 15 MG TAB PO SCH (20:26)
[2019-06-27] MEDS: LISINOPRIL 5 MG TAB PO SCH (20:26)
[2019-06-28] MEDS: TOBRA-DEXAMET 0.3-0.1% OPHTH DROPS 2.5 ML BTL LEFT EYE SCH ×6 (04:09→23:28)
[2019-06-28] MEDS: CARVEDILOL 6.25 MG TAB PO SCH ×2 (06:07→17:38)
--- NOTE | 2019-06-28 06:31 | P.PN ---
Subjective This is a pleasant 83 years old male with past medical history of heart failure, dementia, atrial fibrillation, hypertension, prostate problems status post surgery: Status post permanent pacemaker, hypothyroidism. Patient could not provide information because of his dementia, so information was taken from staff from records, as per staff patient was transferred because the felt he's and well, as well as because of leg swelling and with a 10 pound weight gain. Hemodynamically stable and is saturating 99% on room air. Patient is afebrile. Labs are unremarkable including CBC, BMP, INR, liver enzymes. EKG: Paced rhythm at 61 bpm. Chest x-ray showing venous congestion and cardiomegaly suspicious for CHF, possible left pleural effusion by radiologist. In the emergency room patient was started on Lasix and aspirin. 06/23/2019 As per staff patient lives with , his independent however he is confused and usually he come to get with one wart only. This morning patient is awake however he does not follow commands and when asked questions he mumbles. He does not look in distress, is slightly tachypneic. Vitas looks stable and he is saturating 97% on room air. Labs from today looks stable with WBC 6.1K, hemoglobin 10.2, sodium 136, creatinine 1.0, glucose controls. He has Albright catheter and 600 mL was drained out. His legs are still swollen. Discussed with the staff to obtain urine analysis, repeat chest x-ray. Also a sked for physical therapy evaluation. Check chest x-ray and pro calcitonin. And TSH Patient currently on Lasix 40 mg twice daily, metolazone 1.25 mg daily and Eliquis for DVT prophylaxis. 06/24/2019 Patient is more alert and comfortable today. No tachypnea, he barely answers with one wart with looks like his baseline. He follows simple commands at times. His blood pressure 113/61, heart rate 60, patient is afebrile. No leukocytosis. His creatinine is slightly trended up to 1.27, sodium 135. He remains on IV Lasix 40 mg twice daily however was going to check with machine bender team about the diuretic therapy. Also he is on metolazone 1.25 mg daily. Also is on aspirin and Eliquis. Pulmonary input is appreciated for left pleural effusion, they recommended to continue with medical therapy for now and no plan for thoracocentesis. Patient may benefit from ECF for rehab on discharge 06/25/2019 Patient is awake alert, he needed assistance for his meal this morning, he was looking injuring his meal. No specific complaints however patient does not follow command, he answers with only "ya" to several questions. He has good attention span. He is hemodynamically stable. His saturation 97% on room air. Labs show an increasing creatinine to 1.39, potassium 3.0, sodium 135, he remains on Lasix drip, possibly he might need thoracocentesis for his left pleural effusion. Doppler of the lower extremities negative for DVT. Place Luis wrap to lower his lower extremity extensive edema 06/26/2019 Patient clinically looks the same, she is awake, he has good attention span, he is slow to respond, at bedside, at one time he was able to say he is Jose A but he could not say it again, with difficulty recognize his as "the boss" and mentioned her name ash "taylor", as per at bedside patient looks better than yesterday. No respiratory distress nonspecific complaints, his legs are less edematous after applying Luis wraps, yesterday he had some fever and was started on Zosyn, his creatinine is still slightly elevated at 1.46. He remains on Lasix drip at 5 mg per hour, blood pressure stable at 105/63, no more fever I talked to the and she confirmed to me she is open to the idea of hospice if he deteriorates, however keep to improve and remained stable he might discharged to rehab/skilled nursing with palliative care consult 06/27/2019 Patient with no dyspnea or chest pain, his legs today were oozing while dressing and Luis wrap were placed, 3 still swollen, patient remains on IV Lasix 40 mg twice daily He is hemodynamically stable with no more fever History obtained is 1.5 today, potassium 2.8 which is been replaced, magnesium normal at 2.1 06/28/2019 Patient is lying comfortable in bed, his legs are less swollen after placing compression stockings, blood pressure 102/62, heart rate 58, his breathing quietly. Saturating 97% on room air. No more fever. Labs from morning are pending. His weight down to 87.9 kg compared to 94 kg upon admission. Patient remains on Lasix 40 mg twice daily, Eliquis 2.5 mg twice daily and Zosyn. Objective - Vital Signs Vital signs: Vital Signs Temp 98.4 F 06/28/19 03:32 Pulse 58 L 06/28/19 03:33 Resp 18 06/28/19 03:33 BP 102/62 06/28/19 03:32 Pulse Ox 97 06/28/19 03:32 Intake & Output 06/27/19 06/27/19 06/28/19 06:59 18:59 06:59 Intake Total 460 100 Output Total 988 282 8817 Balance -260 -42 -4890 Weight 88.8 kg 87.9 kg Intake: Intake, IV Titration 100 Amount Piperacillin-Tazobactam 3 100 .375 gm In Sodium Chloride 0.9% 100 ml @ 25 mls/hr IVPB Q8HR [facility] Rx# :[id number] Oral 460 Output: Urine 027 485 2725 Other: Voiding Method Incontinent Incontinent Incontinent # Voids 0 # Bowel Movements 1 - Exam -GENERAL: The patient is alert and oriented x0, not in any acute distress. Well developed, well nourished. HEENT: Pupils are round and equally reacting to light. EOMI. No scleral icterus. No conjunctival pallor. Normocephalic, atraumatic. No pharyngeal erythema. No t hyromegaly. -CARDIOVASCULAR: S1 and S2 present. No murmurs, rubs, or gallops. PULMONARY: Chest is clear to auscultation, no wheezing or crackles. Decreased breath sounds on the left side, bilateral basal crepitation ABDOMEN: Soft, nontender, nondistended, normoactive bowel sounds. No palpable organomegaly. MUSCULOSKELETAL: No joint swelling or deformity. -EXTREMITIES: No cyanosis, clubbing,. 2+ leg edema NEUROLOGICAL: Gross neurological examination did not reveal any focal deficits. SKIN: No rashes. No petechiae - Labs CBC & Chem 7: 06/27/19 05:25 06/27/19 05:25 Labs: Abnormal Lab Results - Last 24 Hours (Table) 06/27/19 Range/Units 05:25 Potassium 2.8 L (3.5-5.1) mmol/L BUN 55 H (9-20) mg/dL Creatinine 1.52 H (0.66-1.25) mg/dL Glucose 108 H (74-99) mg/dL Calcium 8.3 L (8.4-10.2) mg/dL Assessment and Plan Assessment: Chronic heart failure underwent chronic atrial fibrillation, status post pacemaker Hypertension Dementia Hypothyroidism Depression, not in active tissue History of prostate problems status post surgery Plan: This is a pleasant 83 years old male who presents with acute CHF exacerbation and left pleural effusion, SOME FEVER. Continue with diuretics with IV Lasix , monitor creatinine, continue with Coreg and lisinopril. Follow-up recommendation by cardiology and pulmonary services. Continue with Zosyn, if he deteriorates or if he recommends hospice and if he improves and go to ECF than palliative consult Labs and medication were reviewed.. Continue same treatment. Continue with symptomatic treatment. Resume home medication. Monitor lytes and vitals. DVT and GI prophylaxis. Further recommendations of the clinical course of the patient DVT prophylaxis: Eliquis GI Prophylaxis: Pepcid PT/OT: Subacute rehab Prognosis is guarded
[2019-06-28 06:33] LABS: Basophils % (A) 1 %; Eosinophils # (A) 0.1 k/uL (0-0.7); Eosinophils % (A) 2 %; HCT 31.2 % (39.0-53.0); HGB 9.6 gm/dL (13.0-17.5); Hypochromasia Slight; Lymphocytes # (A) 1.1 k/uL (1.0-4.8); Lymphocytes % (A) 21 %; MCH 29.8 pg (25.0-35.0); MCHC 30.9 g/dL (31.0-37.0); MCV 96.5 fL (80.0-100.0); Mean Platelet Volume 8.3; Monocytes # (A) 0.5 k/uL (0-1.0); Monocytes % (A) 9 %; Neutrophils # (A) 3.4 k/uL (1.3-7.7); Neutrophils % (A) 65 %; Platelet Count 201 k/uL (150-450); RBC 3.23 m/uL (4.30-5.90); WBC 5.3 k/uL (3.8-10.6)
[2019-06-28 06:44] LABS: Calcium 8.9 mg/dL (8.4-10.2); Magnesium 2.3 mg/dL (1.6-2.3); Potassium 3.1 mmol/L (3.5-5.1)
--- NOTE | 2019-06-28 07:44 | XR ---
EXAMINATION TYPE: XR chest 1V portable DATE OF EXAM: 06/28/2019 CLINICAL HISTORY: Difficulty breathing pain and CHF progress study. TECHNIQUE: Single AP portable upright view of the chest is obtained. COMPARISON: Chest x-ray from June 25, 2019 and older studies. FINDINGS: Persistent cardiomegaly with single lead pacemaker. Persistent moderate to large left pleu ral effusion and associated left basilar liver atelectasis and/or infiltrate. Background chronic pare nchymal change. Right lung remains clear. Osseous structures are demineralized. Old posterior lateral right fifth and sixth rib fractures again seen. IMPRESSION: Overall stable findings, chronic changes and cardiomegaly with moderate to large sized left pleural effusion and associated left lung atelectasis and/or infiltrate are all redemonstrated.
[2019-06-28 08:08] LABS: Anisocytosis (M) Present; Poikilocytosis (M) Present
[2019-06-28 08:11] LABS: Target Cells Present
[2019-06-28 08:40] VITALS: RESP 20
[2019-06-28] MEDS: PIPERACILLIN-TAZOBACTAM 3.375 GM in SODIUM CHLORIDE 0.9% 100 ML IVPB SCH ×3 (09:30→23:26)
[2019-06-28] MEDS: METOLAZONE 2.5 MG TAB PO SCH (10:09)
[2019-06-28] MEDS: TAMSULOSIN 0.4 MG CAP.ER.24H PO SCH ×2 (10:11→22:17)
[2019-06-28] MEDS: SPIRONOLACTONE 25 MG TAB PO SCH (10:11)
[2019-06-28] MEDS: POTASSIUM CHLORIDE ER 20 MEQ TAB.ER PO SCH ×4 (10:11→17:38)
[2019-06-28] MEDS: ASPIRIN 81 MG PO SCH (10:12)
[2019-06-28] MEDS: APIXABAN 2.5 MG TABLET PO SCH ×2 (10:12→22:17)
[2019-06-28] MEDS: FUROSEMIDE 10 MG/ML 4 ML VIAL IV SCH ×2 (10:12→22:18)
[2019-06-28] MEDS: POTASSIUM BICARBONATE/CIT AC 20 MEQ TABLET.EFF PO SCH (10:30)
[2019-06-28] MEDS: POTASSIUM CHLORIDE ER 10 MEQ TAB.ER.PRT PO SCH (12:23)
--- NOTE | 2019-06-28 13:20 | P.PN ---
Subjective Progress Note Date: 06/28/19 Principal diagnosis: Acute on chronic diastolic congestive heart failure The patient is seen today 06/28/2019 in follow-up on the selective care unit. He is awake and alert. Resting comfortably in bed. Remains on room air. No acute respiratory distress. Chest x-ray reveals chronic changes and cardiomegaly along with a moderate left pleural effusion and associated left eran g atelectasis. White count 5.3. Hemoglobin 9.6. Sodium 138. Creatinine 1.33. He is continued on Lasix 40 mg IV every 12 hours. Anticoagulated with Eliquis. Antibiotics in the form of Zosyn. Objective - Vital Signs Vital signs: Vital Signs Temp 98 F 06/28/19 12:00 Pulse 61 06/28/19 12:00 Resp 20 06/28/19 12:00 BP 121/62 06/28/19 12:00 Pulse Ox 98 06/28/19 12:00 Intake & Output 06/27/19 06/28/19 06/28/19 18:59 06:59 18:59 Intake Total 460 100 480 Output Total 525 2345 200 Balance -65 -2245 280 Weight 87.9 kg Intake: Intake, IV Titration 100 Amount Piperacillin-Tazobactam 3 100 .375 gm In Sodium Chloride 0.9% 100 ml @ 25 mls/hr IVPB Q8HR [facility] Rx# :[id number] Oral 460 480 Output: Urine 525 2345 200 Other: Voiding Method Incontinent Incontinent Incontinent # Bowel Movements 1 - Exam GENERAL EXAM: Frail 83-year-old gentleman with advanced dementia, on room air, comfortable in no apparent distress. HEAD: Normocephalic/atraumatic. EYES: Normal reaction of pupils, equal size. Conjunctiva pink, sclera white. NOSE: Clear with pink turbinates. THROAT: No erythema or exudates. NECK: No masses, no JVD, no thyroid enlargement, no adenopathy. CHEST: No chest wall deformity. Symmetrical expansion. LUNGS: Equal air entry with diminished breath sounds at the left base CVS: Regular rate and rhythm, normal S1 and S2, no gallops, no murmurs, no rubs ABDOMEN: Soft, nontender. No hepatosplenomegaly, normal bowel sounds, no guarding or rigidity. EXTREMITIES: No clubbing, anasarca, improving lower extremity edema, weeping, both BLE have been josé miguel-wrapped, and edema involving upper extremities no cyanosis, 2+ pulses and upper and lower extremities. MUSCULOSKELETAL: Muscle strength and tone normal. SPINE: No scoliosis or deformity SKIN: No rashes CENTRAL NERVOUS SYSTEM: No focal deficits, tone is normal in all 4 extremities. PSYCHIATRIC: Alert and oriented -1. Appropriate affect. Intact judgment and insight. - Labs CBC & Chem 7: 06/28/19 06:06 06/28/19 06:06 Labs: Abnormal Lab Results - Last 24 Hours (Table) 06/28/19 06/28/19 06/28/19 Range/Units 06:06 06:06 06:06 RBC 3.23 L (4.30-5.90) m/uL Hgb 9.6 L (13.0-17.5) gm/dL Hct 31.2 L (39.0-53.0) % MCHC 30.9 L (31.0-37.0) g/dL Potassium 3.1 L (3.5-5.1) mmol/L Carbon Dioxide 34 H (22-30) mmol/L BUN 49 H (9-20) mg/dL Creatinine 1.33 H (0.66-1.25) mg/dL Glucose 114 H (74-99) mg/dL Procalcitonin 0.15 H (0.02-0.09) ng/mL Assessment and Plan Assessment: Acute on chronic diastolic congestive heart failure. Bilateral pleural effusion secondary to CHF. Left more so than right. History of dementia. Chronic atrial fibrillation and previous pacemaker implantation. On anticoagulation therapy. History of hypothyroidism. History of depression. Benign essential hypertension. Plan: The patient was seen and evaluated by Dr. Rodriges. Chest x-ray and labs reviewed. The patient remains comfortable and on room air with no respiratory distress. He is anticoagulated with Eliquis. On aspirin. No plans for thoracentesis at this time. He is cleared for discharge to subacute rehabilitation from the pulmonary standpoint. Dr. Rodriges did speak with the patient's who is present at the bedside and she agrees not to perform any invasive procedures at this time. I, the cosigning physician, performed a history & physical examination of the patient. Lungs sounds diminished in the left base. Maintaining good O2 saturations in the 90s on room air. I discussed the assessment and plan of care with my nurse practitioner, Vanessa Griffin. I attest to the above note as dictated by her.
--- NOTE | 2019-06-28 14:29 | P.PN ---
Subjective Progress Note Date: 06/28/19 Patient is an 83-year-old gentleman with history of heart failure, persistent atrial fibrillation, prior pacemaker, mild dementia who was admitted to the hospital with symptoms of shortness of breath. He is currently on IV Lasix, overall diuresing well. Chest x-ray showed chronic changes and cardiomegaly along with moderate left-sided pleural effusion with associated left lung atelectasis. White blood cell count 5.3, hemoglobin 9.6, sodium 138, creatinine 1.3. Objective - Vital Signs Vital signs: Vital Signs Temp 98 F 06/28/19 12:00 Pulse 61 06/28/19 12:00 Resp 20 06/28/19 12:00 BP 121/62 06/28/19 12:00 Pulse Ox 98 06/28/19 12:00 Intake & Output 06/27/19 06/28/19 06/28/19 18:59 06:59 18:59 Intake Total 460 100 480 Output Total 525 2345 200 Balance -65 -5737 280 Weight 87.9 kg Intake: Intake, IV Titration 100 Amount Piperacillin-Tazobactam 3 100 .375 gm In Sodium Chloride 0.9% 100 ml @ 25 mls/hr IVPB Q8HR [facility] Rx# :[id number] Oral 460 480 Output: Urine 525 2345 200 Other: Voiding Method Incontinent Incontinent Incontinent # Bowel Movements 1 - Exam HEAD: Normocephalic/atraumatic. EYES: Normal reaction of pupils, equal size. Conjunctiva pink, sclera white. NOSE: Clear with pink turbinates. THROAT: No erythema or exudates. NECK: No masses, no JVD, no thyroid enlargement, no adenopathy. CHEST: No chest wall deformity. Symmetrical expansion. LUNGS: Equal air entry with diminished breath sounds at the left base CVS: Regular rate and rhythm, normal S1 and S2, no gallops, no murmurs, no rubs ABDOMEN: Soft, nontender. No hepatosplenomegaly, normal bowel sounds, no guarding or rigidity. EXTREMITIES: No clubbing, anasarca, improving lower extremity edema, weeping, both BLE have been josé miguel-wrapped, and edema involving upper extremities no cyanosis, 2+ pulses and upper and lower extremities. MUSCULOSKELETAL: Muscle strength and tone normal. SPINE: No scoliosis or deformity SKIN: No rashes CENTRAL NERVOUS SYSTEM: No focal deficits, tone is normal in all 4 extremities. PSYCHIATRIC: Alert and oriented -1. Appropriate affect. Intact judgment and insight. - Labs CBC & Chem 7: 06/28/19 06:06 06/28/19 06:06 Labs: Abnormal Lab Results - Last 24 Hours (Table) 06/28/19 06/28/19 06/28/19 Range/Units 06:06 06:06 06:06 RBC 3.23 L (4.30-5.90) m/uL Hgb 9.6 L (13.0-17.5) gm/dL Hct 31.2 L (39.0-53.0) % MCHC 30.9 L (31.0-37.0) g/dL Potassium 3.1 L (3.5-5.1) mmol/L Carbon Dioxide 34 H (22-30) mmol/L BUN 49 H (9-20) mg/dL Creatinine 1.33 H (0.66-1.25) mg/dL Glucose 114 H (74-99) mg/dL Procalcitonin 0.15 H (0.02-0.09) ng/mL Assessment and Plan Plan: Assessment and plan: #1 Acute on chronic diastolic congestive heart failure. #2 Left Bilateral pleural effusion secondary to CHF #3History of dementia. #4Chronic atrial fibrillation and previous pacemaker implantation. On anticoagulation therapy. #5History of hypothyroidism. #6History of depression. #7Benign essential hypertension. Plan Patient continues to have a left-sided pleural effusion, pulmonary do not plan at this time to perform a thoracentesis the recommendation is that the patient continue on IV Lasix. We will continue to monitor the intake and output along with daily weights and daily lytes BUN and creatinine. DNP note has been reviewed, I agree with a documented findings and plan of care. Patient was seen and examined.
[2019-06-28 15:34] VITALS: BMI 26.2
[2019-06-28] MEDS: MIRTAZAPINE 15 MG TAB PO SCH (22:17)
[2019-06-28] MEDS: LISINOPRIL 5 MG TAB PO SCH (22:18)
[2019-06-29] MEDS: POTASSIUM CHLORIDE ER 20 MEQ TAB.ER PO SCH ×2 (03:01→04:04)
[2019-06-29] MEDS: TOBRA-DEXAMET 0.3-0.1% OPHTH DROPS 2.5 ML BTL LEFT EYE SCH ×3 (04:04→12:47)
[2019-06-29 05:44] LABS: Calcium 9.3 mg/dL (8.4-10.2); Potassium 3.9 mmol/L (3.5-5.1)
[2019-06-29] MEDS: LEVOTHYROXINE 50 MCG TAB PO SCH (05:52)
[2019-06-29 06:48] VITALS: BP 111/66; PULSE 60; TEMP 97.3
[2019-06-29] MEDS: SPIRONOLACTONE 25 MG TAB PO SCH (08:53)
[2019-06-29] MEDS: APIXABAN 2.5 MG TABLET PO SCH (08:53)
[2019-06-29] MEDS: CARVEDILOL 6.25 MG TAB PO SCH (08:53)
[2019-06-29] MEDS: FUROSEMIDE 10 MG/ML 4 ML VIAL IV SCH (08:53)
[2019-06-29] MEDS: TAMSULOSIN 0.4 MG CAP.ER.24H PO SCH (08:53)
[2019-06-29] MEDS: ASPIRIN 81 MG PO SCH (08:53)
[2019-06-29] MEDS: POTASSIUM CHLORIDE ER 10 MEQ TAB.ER.PRT PO SCH (08:53)
[2019-06-29] MEDS: METOLAZONE 2.5 MG TAB PO SCH (08:54)
[2019-06-29] MEDS: POTASSIUM BICARBONATE/CIT AC 20 MEQ TABLET.EFF PO SCH (08:56)
[2019-06-29] MEDS ORDERED: AMOXIC-POT CLAV 875-125MG 1 EACH TAB PO SCH (09:00)
--- NOTE | 2019-06-29 11:30 | P.PN ---
Subjective Progress Note Date: 06/29/19 This is an 83-year-old white male known history of dementia, chronic diastolic congestive heart failure and long-standing atrial fibrillation on oral anticoagulation therapy. History of permanent pacemaker implantation. Patient was admitted on 06/22/2019, mostly with symptoms of increased shortness of viktoria ath. Patient cannot give any history, unable to provide any information. Apparently he was noted to have worsening shortness of breath over the last few days, and increased swelling of the lower extremities with pitting edema. Weight went up by 10 pounds. Patient had no chest pain, no palpitations, no syncope, upon evaluation in the ER, patient was noted to have bilateral pleural effusions, left more so than right. His EKG showed mostly atrial fibrillation with controlled heart rate. Previous echocardiogram showed normal LV function and mild aortic stenosis. Patient was placed on multiple diuretics and on Lasix. I was asked to see the patient on consultation for possible left sided t horacentesis. Patient is on anticoagulation therapy, he seems to be very comfortable, he is actually on room air. His diuretics have been increased, hence I plan to continue medical management, and if no improvement with medical management then we would consider left sided thoracentesis. Ultrasound showed a 6.5 cm pocket, could be drained, however prefer to treat with diuretics before thoracentesis. On 06/24/2019 patient seen in follow-up on selective care unit, he is resting comfortably in the recliner, his is at the bedside, patient has advanced dementia, he is unable to give much history, but he does not look in any distress, no signs of any respiratory difficulty, she is currently on room air with a pulse ox of 98%, hemodynamically patient is stable, afebrile. His states patient does not her to be in any respiratory distress, his activity level has been quite limited. Patient remains on IV Lasix, currently at 40 mg once daily, he is in negative fluid balance, -1110 mL over the last 24 hours, she is negative for 0.8 kg according to the recorded weight however patient still has quite significant lower extremity edema and his thinks that the edema involving his upper extremities is getting worse. Chest x-ray shows stable findings of a large left-sided pleural effusion and associated left lung atelectasis without significant change. Today's labs showed slight worsening of patient's renal function and cardiology adjusted the dose of Lasix to once daily. On 06/29/2019 patient is seen again in follow-up on general medical floor. Awake and alert, in no acute distress, pulse ox is 97%, no fever or chills, hemodynamically stable, breathing is nonlabored, patient's level of activity is rather sedentary, he has been on bedrest most of the time, has advanced dementia, not a very good historian, his is at the bedside and she states patient has not been noted to be more short of breath. Today's chest x-ray shows a overall stable findings, with moderate to large sized left pleural effusion and associated left lung atelectasis. She remains on oral Lasix and Zaroxolyn, he continues to diurese. Patient is in -2500 mL fluid balance, no significant lower extremity edema, lung sounds reveal diminished breath sounds at the bases. He is on aspirin and Eliquis. Serum sodium is 139, potassium 3.9, chloride is 98, CO2 36, BUN is 46, and creatinine of 1.50. Objective - Vital Signs Vital signs: Vital Signs Temp 97.3 F L 06/29/19 06:47 Pulse 60 06/29/19 06:47 Resp 20 06/29/19 06:47 BP 111/66 06/29/19 06:47 Pulse Ox 97 06/29/19 06:47 Intake & Output 06/28/19 06/29/19 06/29/19 18:59 06:59 18:59 Intake Total 480 220 590 Output Total 700 2500 Balance -220 -2280 590 Weight 87.9 kg 80 kg Intake: Oral 480 220 590 Output: Urine 700 2500 Other: Voiding Method Incontinent Incontinent - Exam GENERAL EXAM: Alert, very pleasant, 83-year-old gentleman with advanced dementia, patient is not able to communicate very extensively, and his is the main communicator, comfortable in no apparent distress. HEAD: Normocephalic/atraumatic. EYES: Normal reaction of pupils, equal size. Conjunctiva pink, sclera white. NOSE: Clear with pink turbinates. THROAT: No erythema or exudates. NECK: No masses, no JVD, no thyroid enlargement, no adenopathy. CHEST: No chest wall deformity. Symmetrical expansion. LUNGS: Equal air entry with diminished breath sounds at the left base CVS: Regular rate and rhythm, normal S1 and S2, no gallops, no murmurs, no rubs ABDOMEN: Soft, nontender. No hepatosplenomegaly, normal bowel sounds, no guarding or rigidity. EXTREMITIES: No clubbing, anasarca, improving lower extremity edema, both BLE have been josé miguel-wrapped, and edema involving upper extremities no cyanosis, 2+ pulses and upper and lower extremities. MUSCULOSKELETAL: Muscle strength and tone normal. SPINE: No scoliosis or deformity SKIN: No rashes CENTRAL NERVOUS SYSTEM: Alert and oriented -1. No focal deficits, tone is normal in all 4 extremities. PSYCHIATRIC: Alert and oriented -1. Appropriate affect. Intact judgment and insight. - Labs CBC & Chem 7: 06/28/19 06:06 06/29/19 05:17 Labs: Abnormal Lab Results - Last 24 Hours (Table) 06/28/19 06/28/19 06/28/19 Range/Units 06:06 13:56 19:45 Potassium 3.4 L 3.4 L (3.5-5.1) mmol/L Carbon Dioxide (22-30) mmol/L BUN (9-20) mg/dL Creatinine (0.66-1.25) mg/dL Glucose (74-99) mg/dL Procalcitonin 0.15 H (0.02-0.09) ng/mL 06/29/19 Range/Units 05:17 Potassium (3.5-5.1) mmol/L Carbon Dioxide 36 H (22-30) mmol/L BUN 46 H (9-20) mg/dL Creatinine 1.50 H (0.66-1.25) mg/dL Glucose 128 H (74-99) mg/dL Procalcitonin (0.02-0.09) ng/mL Assessment and Plan Plan: Assessment: Acute on chronic diastolic congestive heart failure. Bilateral pleural effusion secondary to CHF. As above. Left more so than right. History of dementia. Chronic atrial fibrillation and previous pacemaker implantation. On anticoagulation therapy. History of hypothyroidism. History of depression. Benign essential hypertension. Plan: Continue oral diuretics, patient is maintaining negative fluid balance, today's chest x-ray has been reviewed showing stable findings with moderate to large sized left pleural effusion however clinically patient is asymptomatic, he is on room air. Discharge planning is in progress for possibility of discharge to s ubacute rehab facility. Patient will need outpatient follow-up in the office with Dr. Lomax, and need outpatient chest x-ray in the office, in the event left-sided pleural effusion becomes larger and requires draining his aspirin will have to be on hold for 5 days and Eliquis will have to be on hold for 48 hours. The patient is stable for discharge to [facility] today I performed a history & physical examination of the patient and discussed their management with my nurse practitioner, Christy Alexis. I reviewed the nurse practitioner's note and agree with the documented findings and plan of care. Lung sounds are positive for diminished breath sounds bilaterally. The findings and the impression was discussed with the patient. I attest to the documentation by the nurse practitioner. Time with Patient: Less than 30
--- NOTE | 2019-06-29 12:55 | P.DS ---
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 Patient could not provide information because of his dementia, so information was taken from staff from records, as per staff patient was transferred because the felt he's unwell, as well as because of leg swelling and with a 10 pound weight gain. Hemodynamically stable and is saturating 99% on room air. Patient is afebrile. However R on was started on Zosyn because she developed a suspicion of pneumonia, however patient does not have respiratory symptoms, no chest pain or coughing or dyspnea. Patient initially was treated with Lasix and switched later to Lasix drip Albright catheter was placed and patient has an extensive diuresis, this leg swelling is significantly improved with diuresis and applying compression stockings, patient has been followed by cardiology and pulmonary service, for possible left thoracotomy 7 pieces and left pleural effusion however decision was to treat him conservatively and he did not need thoracocentesis eventually. Eventually patient remains stable and he was switched to oral Lasix, potassium at 2.8 was replaced. Patient lost weight from 94 kg down to 87.9 kg. At home he was and Eliquis 2.5 mg daily, it was increased up on admission to twice a day for DVT prophylaxis and anticoagulation. Patient will be discharged to short course of oral antibiotics as well as Lasix oral, patient will need close monitoring of his electrolytes especially potassium Patient was cleared by cardiology and pulmonary service for discharge Problems and management plan were discussed with the patient's and she verbalized understanding and acceptance Patient was found stable and can be discharged to ECF for rehab however he needs follow-up as an outpatient. Patient and were instructed to follow up with PCP within one week and they agree. Recommend patient follow up with [facility] and pulmonary is in 2 weeks Gen: patient is a AAOx0, no distress CVS: S1-S2, RRR, no murmur Lungs: B/L CTA, no wheezing Abdomen: soft, no distention, no tenderness, positive bowel sounds Extremity: Bilateral leg edema, improved Time spent more than 35 minutes Patient Condition at Discharge: Serious Plan - Discharge Summary Discharge Rx Participant: No New Discharge Prescriptions: New Tobra-Dexamet 0.3-0.1% [facility] [Tobradex Ophth Susp] 1 drops LEFT EYE Q4HR 5 Days ml Spironolactone [Aldactone] 50 mg PO DAILY #0 tab Acetaminophen Tab [Tylenol] 650 mg PO Q4HR PRN tab PRN Reason: Fever And/ Or Pain Amoxic-Pot Clav 875-125Mg [Augmentin 875-125] 1 each PO Q12HR #9 tab Furosemide [Lasix] 40 mg PO BID #60 tablet Continue Aspirin EC [Ecotrin Low Dose] 81 mg PO HS Tamsulosin [Flomax] 0.4 mg PO BID Mirtazapine [Remeron] 15 mg PO HS Levothyroxine Sodium [Synthroid] 50 mcg PO MOTUTHFRSA Apixaban [Eliquis] 2.5 mg PO BID Levothyroxine Sodium [Synthroid] 75 mcg PO SUWE Metolazone [Zaroxolyn] 1.25 mg PO DAILY Carvedilol [Coreg] 6.25 mg PO BID Lisinopril [Zestril] 5 mg PO HS Potassium Chloride Oral Liquid 20 meq PO DAILY Discontinued Vit C/E/Zn/Coppr/Lutein/Zeaxan [Preservision Areds 2 Softgel] 1 cap PO DAILY Furosemide [Lasix] 20 mg PO DAILY Calcium Polycarbophil [Fiber-Lax] 2,500 mg PO DAILY Multivit-Min/FA/Lycopen/Lutein [Centrum Silver Tablet] 1 tab PO DAILY Discharge Medication List Aspirin EC [Ecotrin Low Dose] 81 mg PO HS 12/23/13 [History] Tamsulosin [Flomax] 0.4 mg PO BID 08/28/14 [History] Mirtazapine [Remeron] 15 mg PO HS 01/14/18 [History] Apixaban [Eliquis] 2.5 mg PO BID 04/30/18 [History] Levothyroxine Sodium [Synthroid] 50 mcg PO MOTUTHFRSA 04/30/18 [History] Carvedilol [Coreg] 6.25 mg PO BID 08/24/18 [History] Levothyroxine Sodium [Synthroid] 75 mcg PO SUWE 08/24/18 [History] Metolazone [Zaroxolyn] 1.25 mg PO DAILY 08/24/18 [History] Lisinopril [Zestril] 5 mg PO HS 11/10/18 [History] Potassium Chloride Oral Liquid 20 meq PO DAILY 06/22/19 [History] Acetaminophen Tab [Tylenol] 650 mg PO Q4HR PRN tab 06/29/19 [Rx] Amoxic-Pot Clav 875-125Mg [Augmentin 875-125] 1 each PO Q12HR #9 tab 06/29/19 [Rx] Furosemide [Lasix] 40 mg PO BID #60 tablet 06/29/19 [Rx] Spironolactone [Aldactone] 50 mg PO DAILY #0 tab 06/29/19 [Rx] Tobra-Dexamet 0.3-0.1% [facility] [Tobradex Ophth Susp] 1 drops LEFT EYE Q4HR 5 Days ml 06/29/19 [Rx] Follow up Appointment(s)/Referral(s): [facility] [Provider Group] - 1 Week [facility] [NON-STAFF] - 1 Week Cullen Morel MD [Primary Care Provider] - 1-2 days Patient Instructions/Handouts: Heart Failure (DC), Heart Healthy Diet (DC) Activity/Diet/Wound Care/Special Instructions: CHF 1. Weigh yourself every morning after you urinate. If you gain 2-3 pounds overnight or 5 pounds in one week, call your primary physician for guidance on your medications. Keep a log of your weights. 2. Avoid salt, or foods with hidden salt. Extra salt makes your heart work harder and traps the fluid in your body for longer. 3. Take all of your medications as directed, especially your water pills. NEVER skip a dose. 4. Elevate your legs when you are not up moving around to help with circulation and prevent swelling. 5. Call your physician if you notice any extra swelling in your legs, ankles, feet or abdomen, if you have a new dry cough, if your shortness of breath worsens with activity or at rest, or if you feel more fatigued. Monitor potassium and BMP with kidney function closely and repeat test in 2-3 days, Cardiac diet with salt restriction Activity is limited to till you see your doctor Discharge Disposition: TRANSFER TO SNF/ECF
[2019-06-29] MEDS ORDERED: FUROSEMIDE 40 MG TAB PO SCH (16:00)
== END 2019-06-29 15:25 | DRG 291 ==
LOC: EC 08:42 → 3SCARD 11:35 → 6NMEDSUR 06-28 18:27
PROVIDERS: ADMIT Internal Medicine; ATTEND Internal Medicine
DX: I13.0 Hypertensive heart and chronic kidney disease with heart failure and stage 1 through stage 4 chronic kidney disease, or unspecified chronic kidney disease (principal); I50.33 Acute on chronic diastolic (congestive) heart failure; I48.11 Longstanding persistent atrial fibrillation; J98.11 Atelectasis; N17.9 Acute kidney failure, unspecified; E03.9 Hypothyroidism, unspecified; E87.6 Hypokalemia; F03.90 Unspecified dementia, unspecified severity, without behavioral disturbance, psychotic disturbance, mood disturbance, and anxiety; F32.9 Major depressive disorder, single episode, unspecified; N18.9 Chronic kidney disease, unspecified; N40.0 Benign prostatic hyperplasia without lower urinary tract symptoms; Z79.01 Long term (current) use of anticoagulants; Z79.82 Long term (current) use of aspirin; Z79.890 Hormone replacement therapy; Z79.899 Other long term (current) drug therapy; Z82.49 Family history of ischemic heart disease and other diseases of the circulatory system; Z87.891 Personal history of nicotine dependence; Z95.0 Presence of cardiac pacemaker; Z96.651 Presence of right artificial knee joint; Z98.42 Cataract extraction status, left eye; Z98.41 Cataract extraction status, right eye; I35.0 Nonrheumatic aortic (valve) stenosis
CPT/HCPCS: 36415; 71045; 71046; 76604; 80048; 80053; 81003; 82550; 83605; 83735; 83880; 84132; 84145; 84443; 84484; 85025; 85610; 85730; 93005; 93970; 96374; 99285